=== PATIENT | female | born 1940 | race African-American/Black ===

== ENCOUNTER 2016-08-05 21:35 | Emergency (ER) | payer OTHER, MEDICAID ==
[2016-08-05 21:54] VITALS: BMI 29.9
--- NOTE | 2016-08-05 22:43 | DR.GENAD ---
HPI - PCP Primary Care Physician: LAUREN - Complaint/Symptoms Chief Complaint Doctors Comments: Patient with osteoarthritis on hydrocodone 10/ 325 qid but is not taking as instructed in fear of becoming hooked on the medication. Chief Complaint:: LEFT KNEE SWOLLEN FEELS LIKE IT HAS FLUID IN IT HAS PROBLEMS WITH ARTHRITIS. FEELS LIKE IT SLIPS WHEN WALKING Self Treatment fo Chief Complaint: HYDROCODONE FOR PAIN TOOK LAST ONE AROUND 8PM TONIGHT - Source History Provided: Patient - Mode of Arrival Mode of Arrival: Wheelchair - Timing Onset of Chief Complaint: 08/02/16 PMH - PMH Past Medical History: Yes Past Medical History: Arthritis, Dyslipidemia, GERD, Hypertension Past Surgical History: Yes Surgical History: Appendectomy, Hysterectomy Past Surgical History Comment: STENT PLACEMENT - Family History History of Family Medical Conditions: Yes Family Medical History: Cancer, Hypertension Family Medical History Comment: CVA - Social History Does patient currently use any type of tobacco product: No Have you used tobacco products in the last 12 months: No Type of Tobacco Use: None Does any household member use tobacco: No Alcohol Use: None Do you use any recreational Drugs:: No Lives With: Alone Lives Where: Home - infectious screening In the last 2 months have you had wt loss of >10#?: NO Have you had fever, night sweats or hemotysis?: No Have you traveled outside the country in the last 6 months?: No Isolation: Standard ROS - Review of Systems Constitutional: No Symptoms Reported Eyes: No Symptoms Reported ENTM: No Symptoms Reported Respiratoy: No Symptoms Reported Cardiovascular: No Symptoms Reported Gastrointestinal/Abdominal: No Symptoms Reported Genitourinary: No Symptoms Reported Neurological: No Symptoms Reported Musculoskeletal: No Symptoms Reported Integumentary: No Symptoms Reported Hematologic/Lymphatic: No Symptoms Reported Endocrine: No Symptoms Reported Psychiatric: No Symptoms Reported All Other Systems: Reviewed and Negative PE - Vital Signs Vitals: Temperature 98.4 F Pulse Rate 73 Respiratory Rate 16 Blood Pressure [Right Arm] 148/67 Blood Pressure [Left Arm] 162/68 Blood Pressure 113/67 O2 Sat by Pulse Oximetry 97 - General Limitations: No Limitations General Appearance: Alert, In No Apparent Distress - Head Head Exam: Normal Inspection, Atraumatic - Eyes Eye exam: Normal Appearance, PERRL, EOMI - ENT ENT Exam: Normal Exam External Ear Exam: Normal External Inspection TM/Canal Exam: Bilateral Normal Nose Exam: Normal Nose Exam Mouth Exam: Normal Inspection Throat Exam: Normal Inspection - Neck Neck Exam: Normal Inspection - Chest Chest Inspection: Normal Inspection - Respiratory Respiratory Exam: Normal Lung Sounds Bilat Respiratory Exam: Bilateral Clear to Auscultation - Cardiovascular Cardiovascular Exam: Regular Rate, Normal Rhythm - Abdominal Exam Abdominal Exam: Normal Inspection Abdominal Tenderness: negative: RUQ, RLQ, LUQ, LLQ, Epigastrium, Suprapubic, Diffuse, Mild, Moderate, Severe, Other - Extremities Extremities Exam: Tenderness (left knee w/o edema) - Neurologic Neurological Exam: Alert, Oriented X3, CN II-XII Intact - Skin Skin Exam: Warm, Dry, Intact - Diagnosis Discharge Problem: Osteoarthritis Qualifiers: Osteoarthritis location: knee Osteoarthritis type: unspecified Laterality: left Qualified Code(s): M17.12 - Unilateral primary osteoarthritis, left knee - Discharge Plan Condition: Stable - Follow ups/Referrals Follow ups/Referrals: Júnior Chanel [Primary Care Provider] - 3 days - Instructions
[2016-08-05 23:04] VITALS: BP 119/65
== END 2016-08-05 23:03 | disposition home or self-care (01) ==
LOC: ER 21:58
DX: M17.12 Unilateral primary osteoarthritis, left knee (principal)
CPT/HCPCS: 99281; 99282

== ENCOUNTER → 2017-03-03 | Outpatient (CLI) | payer OTHER, MEDICAID ==
[~2017-03-03] MED LIST: NS 100 ML IV 100 ML IV ONE
--- NOTE | 2017-03-03 21:05 | CT ---
HISTORY: Abdominal pain constipation Study: CT abdomen and pelvis with contrast Comparison: 11/23/2015 Technique: Multiple axial images of the abdomen and pelvis were obtained from the lung bases to the pubic symphy sis after/ without/ both prior to and after the administration of IV contrast. Findings: The visualized portions of the lung bases are unremarkable. The liver, spleen, pancreas, right kidne y, and adrenal glands are unremarkable in their CT appearance. A subcentimeter focus of decreased att enuation is again seen within the left kidney and is too small to accurately characterize. No CT evid ence of hydronephrosis is identified. The gallbladder is unremarkable in its CT appearance. Scattere d diverticula are seen throughout the majority of the colon. The urinary bladder is not well distende d but otherwise grossly unremarkable. Degenerative changes are seen within the visualized spine. Pos tsurgical changes of the right lower quadrant are noted. By history the appendix and uterus have been surgically removed. A small hiatal hernia is noted. IMPRESSION: Diverticulosis. Appendectomy. Hysterectomy. Reported By:
== END ==
LOC: RAD 08:13
PROVIDERS: ATTEND Internal Medicine
DX: K59.09 Other constipation (principal); R10.32 Left lower quadrant pain; R10.31 Right lower quadrant pain; K57.30 Diverticulosis of large intestine without perforation or abscess without bleeding
CPT/HCPCS: 74177; A4222

== ENCOUNTER 2017-03-14 13:48 | Observation (INO) | payer OTHER, MEDICAID ==
[2017-03-14 15:50] LABS: BASOPHILS % (AUTO) 0.3 % (0.2-1.0); HEMATOCRIT 33.3 % (36.0-47.0); HEMOGLOBIN 11.1 g/dL (12.0-16.0); LYMPHOCYTES # (AUTO) 0.6 X10^3/uL (1.3-2.9); LYMPHOCYTES % (AUTO) 6.1 % (21.0-51.0); MEAN CORPUSCULAR HEMOGLOBIN 27.2 pg (27.0-34.0); MEAN CORPUSCULAR HGB CONC 33.4 g/dL (33.0-35.0); MEAN CORPUSCULAR VOLUME 81.5 fL (80.0-100.0); MEAN PLATELET VOLUME 7.4 fL (7.4-11.0); MONOCYTES # (AUTO) 0.6 x10^3/uL (0.3-0.8); MONOCYTES % (AUTO) 6.1 % (0.0-13.0); NEUTROPHILS # (AUTO) 8.8 x10^3/uL (2.2-4.8); NEUTROPHILS % (AUTO) 87.5 % (42.0-75.0); PLATELET COUNT 275 X10^3/uL (150.0-450.0); RED BLOOD COUNT 4.08 X10^6/uL (3.5-5.4); RED CELL DISTRIBUTION WIDTH 14.6 % (11.6-16.5); WHITE BLOOD COUNT 10.1 X10^3/uL (3.6-10.0)
[2017-03-14 15:53] VITALS: BMI 35.3
[2017-03-14 15:58] LABS: BLOOD UREA NITROGEN 9 mg/dL (7-18); CALCIUM 9.3 mg/dL (8.5-10.1); CARBON DIOXIDE 27.6 mmol/L (21-32); CHLORIDE 93 mmol/L (98-107); COR NA(FOR HYPERGLY) 129 mmol/L (136-145); CREATININE 0.86 mg/dL (0.55-1.02); SODIUM 129 mmol/L (136-145); eGFR BLACK RACES > 60 (>60); eGFR NON BLACK RACES > 60 (>60)
[2017-03-14] MEDS: NS 1000 ML 1,000 ML IV SCH (16:15)
[2017-03-14] MEDS: ULTRAM PO SCH ×3 (16:15→22:11)
[2017-03-14] MEDS: TORADOL 15 MG VIAL IVP SCH ×2 (16:16→22:10)
[2017-03-14 18:00] LABS: ERYTHROCYTE SEDIMENTATION RATE 77 MM/HOUR (0-20)
[2017-03-14] MEDS ORDERED: NORCO 10/325 TAB PO PRN (19:16)
[2017-03-14] MEDS ORDERED: LEVSIN/MAALOX/LIDOC VISC PO PRN (19:16)
[2017-03-14] MEDS ORDERED: ONDANSETRON PO PRN (19:16)
[2017-03-14] MEDS ORDERED: NEURONTIN CAP 100 MG PO PRN (19:16)
--- NOTE | 2017-03-14 21:27 | RAD ---
Lumbar spine two views Indication: Lower back pain with knee pain. No trauma. Findings: There is multilevel disc degenerative change and facet arthropathy, worse caudally. No conv incing cortical lucency or malalignment seen. Bowel gas and body habitus limits sensitivity significa ntly. Impression: Spine degenerative change without destructive osseous lesion or acute fracture. Study is limited due to technical factors as above. Follow-up with cross-sectional imaging as needed. Reported By:
--- NOTE | 2017-03-14 21:28 | RAD ---
Right knee two views Indication: Bilateral knee pain. No trauma. Findings: There is joint effusion with multi compartment degenerative change. Degenerative joint spac e narrowing is seen diffusely, probably worse in lateral femorotibial joint. Impression: Moderate to advanced degenerative change with joint effusion as above. No displaced fract ure seen. Reported By:
--- NOTE | 2017-03-14 21:29 | RAD ---
Left knee 2 views Indication: Chronic left knee pain. No trauma. Findings: There is multi compartment degenerative change, moderate to advanced with joint effusion. J oint space narrowing is worse medially with marginal osteophytes. Impression: No acute displaced fracture seen. Moderate to advanced degenerative change worse in the m edial femorotibial joint. Reported By:
[2017-03-14 22:06] LABS: ALANINE AMINOTRANSFERASE 16 Units/L (12-78); ALBUMIN 2.8 g/dL (3.4-5.0); ALKALINE PHOSPHATASE 95 Units/L (46-116); ASPARTATE AMINO TRANSFERASE 21 Units/L (15-37); COR CA(FOR HYPOALB) 10.3 mg/dL (8.5-10.1); TOTAL PROTEIN 7.7 g/dL (6.4-8.2)
[2017-03-14] MEDS: NEURONTIN CAP 300 MG PO SCH (22:10)
[2017-03-14] MEDS: NORVASC TAB 10 MG PO SCH (22:11)
[2017-03-14] MEDS: LIPITOR TAB 40 MG PO SCH (22:11)
[2017-03-14] MEDS: TOPROL XL PO SCH (22:12)
[2017-03-14] MEDS: PEPCID TAB 20 MG PO SCH (22:12)
[2017-03-14] MEDS: VASOTEC TAB 20 MG PO SCH (22:12)
[2017-03-14 22:32] LABS: BILIRUBIN,URINE NEGATIVE (NEGATIVE); BLOOD/HEMOGLOBIN,URINE 2+ (NEGATIVE); GLUCOSE, URINE 3+ (NEGATIVE); KETONES,URINE NEGATIVE (NEGATIVE); LEUKOCYTE ESTERASE ,URINE 1+ (NEGATIVE); NITRITES,URINE NEGATIVE (NEGATIVE); PROTEIN,URINE 1+ (NEGATIVE); UROBILINOGEN,URINE 1+ (NORMAL)
[2017-03-14 22:41] LABS: APPEARANCE,URINE SLIGHTLY HAZY (CLEAR); COLOR,URINE YELLOW (YELLOW)
[2017-03-14 22:42] LABS: BACTERIA,URINE 1+ /HPF (NEGATIVE); HYALINE CASTS, URINE FEW /LPF (NEGATIVE); SQUAMOUS EPITHELIAL CELL,UR RARE /HPF (NEGATIVE)
[2017-03-15] MEDS: TORADOL 15 MG VIAL IVP SCH ×4 (03:16→22:08)
[2017-03-15] MEDS: NS 1000 ML 1,000 ML IV SCH ×2 (04:30→18:19)
[2017-03-15 05:29] LABS: BASOPHILS % (AUTO) 0.1 % (0.2-1.0); HEMATOCRIT 31.8 % (36.0-47.0); HEMOGLOBIN 10.6 g/dL (12.0-16.0); LYMPHOCYTES # (AUTO) 0.8 X10^3/uL (1.3-2.9); LYMPHOCYTES % (AUTO) 8.7 % (21.0-51.0); MEAN CORPUSCULAR HEMOGLOBIN 27.4 pg (27.0-34.0); MEAN CORPUSCULAR HGB CONC 33.4 g/dL (33.0-35.0); MEAN PLATELET VOLUME 7.3 fL (7.4-11.0); MONOCYTES # (AUTO) 0.6 x10^3/uL (0.3-0.8); MONOCYTES % (AUTO) 5.7 % (0.0-13.0); NEUTROPHILS # (AUTO) 8.3 x10^3/uL (2.2-4.8); NEUTROPHILS % (AUTO) 85.5 % (42.0-75.0); PLATELET COUNT 263 X10^3/uL (150.0-450.0); RED BLOOD COUNT 3.88 X10^6/uL (3.5-5.4); RED CELL DISTRIBUTION WIDTH 14.7 % (11.6-16.5); WHITE BLOOD COUNT 9.7 X10^3/uL (3.6-10.0)
[2017-03-15 05:49] LABS: ALANINE AMINOTRANSFERASE 15 Units/L (12-78); ALBUMIN 2.4 g/dL (3.4-5.0); ALKALINE PHOSPHATASE 85 Units/L (46-116); ASPARTATE AMINO TRANSFERASE 15 Units/L (15-37); BLOOD UREA NITROGEN 15 mg/dL (7-18); CALCIUM 9.2 mg/dL (8.5-10.1); CARBON DIOXIDE 26.7 mmol/L (21-32); COR CA(FOR HYPOALB) 10.5 mg/dL (8.5-10.1); CREATININE 0.89 mg/dL (0.55-1.02); TOTAL PROTEIN 7.1 g/dL (6.4-8.2); eGFR BLACK RACES > 60 (>60); eGFR NON BLACK RACES > 60 (>60)
[2017-03-15 05:53] LABS: CHLORIDE 97 mmol/L (98-107); COR NA(FOR HYPERGLY) 134 mmol/L (136-145); SODIUM 132 mmol/L (136-145)
[2017-03-15] MEDS ORDERED: ZOFRAN TAB 4 MG PO SCH (06:00)
[2017-03-15] MEDS ORDERED: ZOFRAN TAB 4 MG PO PRN (07:00)
[2017-03-15] MEDS ORDERED: LASIX PO SCH (09:00)
[2017-03-15] MEDS: MICRO K EXTEN CAP 10 MEQ PO SCH (09:00)
[2017-03-15] MEDS: NexIUM PO SCH (09:01)
[2017-03-15] MEDS: VASOTEC TAB 20 MG PO SCH ×2 (09:01→22:09)
[2017-03-15] MEDS: ZOFRAN INJ 4 MG VIAL IVP PRN ×2 (09:01→13:15)
[2017-03-15] MEDS: ASPIRIN EC 81 MG PO SCH (09:01)
[2017-03-15] MEDS: ZyrTEC TAB 10 MG PO SCH (09:01)
[2017-03-15] MEDS: TOPROL XL PO SCH ×2 (09:01→22:10)
[2017-03-15] MEDS: SINGULAIR TAB 10 MG PO SCH (09:03)
[2017-03-15] MEDS: PLAVIX PO SCH (09:17)
[2017-03-15] MEDS: ULTRAM PO SCH ×4 (09:17→22:10)
[2017-03-15] MEDS: FLONASE NASAL SPRAY ENOSTRIL SCH (09:18)
--- NOTE | 2017-03-15 12:43 | DR.UPDATE ---
H&P Update History and Physical Update: WAS SEEN IN THE OFFICE ON 03/14/17. A H&P WAS COMPLETED PRIOR TO ADMISSION. PATIENT HAS BEEN SEEN AND EXAMINED WITH NO CHANGES NOTED TO H&P. Changes noted: NO Yes with the following:
[2017-03-15] MEDS: LEVSIN/MAALOX/LIDOC VISC PO SCH ×3 (13:20→22:11)
--- NOTE | 2017-03-15 14:47 | MRI ---
MRI OF THE LUMBAR SPINE WITHOUT IV CONTRAST CLINICAL INDICATION: Severe low back pain TECHNIQUE: Pre-contrast sagittal T1-, T2-, and T2-w fat-saturated images, and axial T1- and T2-w imag es of the lumbar spine. COMPARISON: CT abdomen pelvis 03/03/2017 which covers the lumbar spine FINDINGS: For purposes of this dictation, it is assumed that there are 5 [id number], lumbar-type vertebrae , and the most caudal fully segmented lumbar vertebra is labeled L5. The lumbar spine demonstrates normal alignment. Vertebral bodies are normal in height. There is a nor mal marrow signal pattern. Multilevel degenerative disc disease worst at. L1-L2, L4-5, L5-L6. The inc luded paraspinal soft tissues and retroperitoneal structures are grossly normal. Evaluation of the individual levels demonstrates: L1-2: Normal L2-3: Circumferential disc bulge with mild central stenosis and mild bilateral neural foraminal steno sis. L3-4: Circumferential disc bulge and mild ligamentum flavum hypertrophy with mild bilateral neural fo raminal stenosis. L4-5: Circumferential disc bulge, ligamentum flavum hypertrophy and facet arthropathy resulting in mo derate to severe central stenosis and moderate to severe bilateral neural foraminal stenosis. L5-S1: Circumferential disc bulge with moderate central stenosis and severe bilateral neural foramina l stenosis. IMPRESSION: 1. Multilevel degenerative disc disease worst at L4-5 and L5-S1 as above. Reported By:
[2017-03-15] MEDS: PATIENT'S HOME MEDICATION (Linaclotide [Linzess] 72 MCG) PO SCH (18:10)
[2017-03-15] MEDS: PEPCID TAB 20 MG PO SCH (22:09)
[2017-03-15] MEDS: LIPITOR TAB 40 MG PO SCH (22:10)
[2017-03-15] MEDS: NORVASC TAB 10 MG PO SCH (22:10)
[2017-03-15] MEDS: NEURONTIN CAP 300 MG PO SCH (22:10)
[2017-03-16 05:28] LABS: ALANINE AMINOTRANSFERASE 15 Units/L (12-78); ALBUMIN 2.1 g/dL (3.4-5.0); ALKALINE PHOSPHATASE 78 Units/L (46-116); ASPARTATE AMINO TRANSFERASE 13 Units/L (15-37); BASOPHILS % (AUTO) 0.1 % (0.2-1.0); BLOOD UREA NITROGEN 22 mg/dL (7-18); CALCIUM 9.2 mg/dL (8.5-10.1); CARBON DIOXIDE 26.1 mmol/L (21-32); CHLORIDE 97 mmol/L (98-107); COR CA(FOR HYPOALB) 10.7 mg/dL (8.5-10.1); COR NA(FOR HYPERGLY) 131 mmol/L (136-145); CREATININE 1.02 mg/dL (0.55-1.02); HEMATOCRIT 31.4 % (36.0-47.0); HEMOGLOBIN 10.2 g/dL (12.0-16.0); LYMPHOCYTES # (AUTO) 0.4 X10^3/uL (1.3-2.9); LYMPHOCYTES % (AUTO) 2.2 % (21.0-51.0); MEAN CORPUSCULAR HEMOGLOBIN 27.1 pg (27.0-34.0); MEAN CORPUSCULAR HGB CONC 32.6 g/dL (33.0-35.0); MEAN CORPUSCULAR VOLUME 83.1 fL (80.0-100.0); MONOCYTES # (AUTO) 1.2 x10^3/uL (0.3-0.8); MONOCYTES % (AUTO) 7.2 % (0.0-13.0); NEUTROPHILS # (AUTO) 15.5 x10^3/uL (2.2-4.8); NEUTROPHILS % (AUTO) 90.5 % (42.0-75.0); PLATELET COUNT 278 X10^3/uL (150.0-450.0); RED BLOOD COUNT 3.78 X10^6/uL (3.5-5.4); RED CELL DISTRIBUTION WIDTH 15.1 % (11.6-16.5); SODIUM 130 mmol/L (136-145); TOTAL PROTEIN 6.6 g/dL (6.4-8.2); WHITE BLOOD COUNT 17.2 X10^3/uL (3.6-10.0); eGFR BLACK RACES > 60 (>60); eGFR NON BLACK RACES 56 (>60)
[2017-03-16 05:43] LABS: BAND NEUTROPHILS % 9 % (0-10); PLATELET MORPHOLOGY COMMENT NORMAL (NORMAL)
[2017-03-16] MEDS: NS 1000 ML 1,000 ML IV SCH ×2 (07:13→21:23)
[2017-03-16] MEDS: TORADOL 15 MG VIAL IVP SCH ×4 (09:30→21:21)
[2017-03-16] MEDS: ZyrTEC TAB 10 MG PO SCH (10:01)
[2017-03-16] MEDS: ULTRAM PO SCH ×4 (10:01→21:22)
[2017-03-16] MEDS: VASOTEC TAB 20 MG PO SCH ×2 (10:01→21:22)
[2017-03-16] MEDS: PLAVIX PO SCH (10:01)
[2017-03-16] MEDS: NexIUM PO SCH (10:03)
[2017-03-16] MEDS: MICRO K EXTEN CAP 10 MEQ PO SCH (10:03)
[2017-03-16] MEDS: LEVSIN/MAALOX/LIDOC VISC PO SCH ×4 (10:03→20:37)
[2017-03-16] MEDS: ASPIRIN EC 81 MG PO SCH (10:03)
[2017-03-16] MEDS: TOPROL XL PO SCH ×2 (10:03→21:23)
[2017-03-16] MEDS: SINGULAIR TAB 10 MG PO SCH (10:03)
[2017-03-16] MEDS: FLONASE NASAL SPRAY ENOSTRIL SCH (10:04)
[2017-03-16] MEDS: PATIENT'S HOME MEDICATION (Linaclotide [Linzess] 72 MCG) PO SCH (11:57)
[2017-03-16] MEDS: COLACE CAP 100 MG PO SCH ×2 (12:25→20:36)
[2017-03-16] MEDS: MILK OF MAGNESIA PO SCH ×2 (12:25→20:36)
[2017-03-16] MEDS: ROCEPHIN VIAL 1 GM 1 GM in NS 100 ML IV 100 ML IV SCH (12:26)
--- NOTE | 2017-03-16 16:11 | RAD ---
History: Shortness of breath Study: Portable AP chest Comparison: None Findings: The heart is mildly enlarged with a tortuous aorta. The lungs are clear and there is no ple ural effusion. Impression: Mild cardiomegaly, no acute disease demonstrated. Reported By:
[2017-03-16] MEDS: PEPCID TAB 20 MG PO SCH (20:36)
[2017-03-16] MEDS: NEURONTIN CAP 300 MG PO SCH (20:36)
[2017-03-16] MEDS: LIPITOR TAB 40 MG PO SCH (20:37)
[2017-03-16] MEDS: NORVASC TAB 10 MG PO SCH (21:21)
[2017-03-17 04:50] LABS: ALANINE AMINOTRANSFERASE 23 Units/L (12-78); ALKALINE PHOSPHATASE 84 Units/L (46-116); ASPARTATE AMINO TRANSFERASE 27 Units/L (15-37); BLOOD UREA NITROGEN 37 mg/dL (7-18); CALCIUM 8.9 mg/dL (8.5-10.1); CARBON DIOXIDE 25.7 mmol/L (21-32); CHLORIDE 96 mmol/L (98-107); COR CA(FOR HYPOALB) 10.5 mg/dL (8.5-10.1); CREATININE 1.84 mg/dL (0.55-1.02); SODIUM 128 mmol/L (136-145); TOTAL PROTEIN 6.3 g/dL (6.4-8.2); eGFR BLACK RACES 34 (>60); eGFR NON BLACK RACES 28 (>60)
[2017-03-17 05:01] LABS: BASOPHILS % (AUTO) 0.1 % (0.2-1.0); EOSINOPHILS # (AUTO) 0.1 x10^3/uL (0.0-0.2); EOSINOPHILS % (AUTO) 1.1 % (0.9-2.9); HEMATOCRIT 31.6 % (36.0-47.0); HEMOGLOBIN 10.4 g/dL (12.0-16.0); LYMPHOCYTES # (AUTO) 1.1 X10^3/uL (1.3-2.9); LYMPHOCYTES % (AUTO) 8.9 % (21.0-51.0); MEAN CORPUSCULAR HEMOGLOBIN 26.9 pg (27.0-34.0); MEAN CORPUSCULAR HGB CONC 32.8 g/dL (33.0-35.0); MEAN CORPUSCULAR VOLUME 82.1 fL (80.0-100.0); MEAN PLATELET VOLUME 7.9 fL (7.4-11.0); MONOCYTES # (AUTO) 1.4 x10^3/uL (0.3-0.8); MONOCYTES % (AUTO) 11.4 % (0.0-13.0); NEUTROPHILS # (AUTO) 9.2 x10^3/uL (2.2-4.8); NEUTROPHILS % (AUTO) 78.5 % (42.0-75.0); PLATELET COUNT 312 X10^3/uL (150.0-450.0); RED BLOOD COUNT 3.84 X10^6/uL (3.5-5.4); WHITE BLOOD COUNT 11.8 X10^3/uL (3.6-10.0)
[2017-03-17] MEDS: TORADOL 15 MG VIAL IVP SCH ×2 (05:50→09:17)
[2017-03-17] MEDS: NS 1000 ML 1,000 ML IV SCH (07:30)
[2017-03-17] MEDS ORDERED: ALBUMIN HUMAN 25%- 100ML 100 ML IV SCH (09:00)
[2017-03-17] MEDS: ASPIRIN EC 81 MG PO SCH (09:03)
[2017-03-17] MEDS: NexIUM PO SCH (09:04)
[2017-03-17] MEDS: COLACE CAP 100 MG PO SCH (09:04)
[2017-03-17] MEDS: TOPROL XL PO SCH (09:07)
[2017-03-17] MEDS: LEVSIN/MAALOX/LIDOC VISC PO SCH ×2 (09:08→13:29)
[2017-03-17] MEDS: ULTRAM PO SCH ×2 (09:11→13:29)
[2017-03-17] MEDS: SINGULAIR TAB 10 MG PO SCH (09:11)
[2017-03-17] MEDS: ZyrTEC TAB 10 MG PO SCH (09:11)
[2017-03-17] MEDS: MILK OF MAGNESIA PO SCH (09:12)
[2017-03-17] MEDS: PLAVIX PO SCH (09:14)
[2017-03-17] MEDS: PATIENT'S HOME MEDICATION (Linaclotide [Linzess] 72 MCG) PO SCH (09:15)
[2017-03-17] MEDS: MICRO K EXTEN CAP 10 MEQ PO SCH (09:15)
[2017-03-17] MEDS: VASOTEC TAB 20 MG PO SCH (09:21)
[2017-03-17] MEDS: FLONASE NASAL SPRAY ENOSTRIL SCH (09:35)
[2017-03-17] MEDS: ROCEPHIN VIAL 1 GM 1 GM in NS 100 ML IV 100 ML IV SCH (10:00)
[2017-03-17] MEDS ORDERED: NS 100 ML IV 100 ML IV ONE (10:44)
--- NOTE | 2017-03-17 12:16 | PCM.PROG ---
Progress Note - Progress Note for Day of Date: 03/15/17 - Subjective Subjective: WAS ADMITTED FOR SEVERE LOWER BACK PAIN AND BILATERAL KNEE PAIN. TODAY, SHE IS ALERT AND ORIENTED, LYING IN BED ON MORNING ROUNDS. PATIENTS GRANDSON IS AT BEDSIDE. SHE CONTINUES WITH COMPLAINTS OF LOWER BACK PAIN. SHE IS ALSO NOTED WITH COMPLAINTS OF DIFFUSE EPIGASTRIC PAIN. ON EXAMINATION, LUNGS ARE CLEAR TO AUSCULTATION. ABDOMEN IS ROUND, SOFT, AND NOTED WITH EPIGASTRIC AND SUPRAPUBIC TENDERNESS. NORMAL BOWEL SOUNDS ARE NOTED IN ALL QUADRANTS. LUMBAR REGION OF BACK IS NOTED WITH MODERATE TENDERNESS ON EXAM. STAFF REPORTS THAT PATIENT IS AMBULATING WELL AND WITHOUT DIFFICULTY IN ROOM. HER VITAL SIGNS THIS MORNING ARE 97.3-53-18-97%-108/55. ABNORMAL LAB VALUES INCLUDE THE FOLLOWING: HGB 10.6, HCT 31.8, SODIUM 132, CHLORIDE 97, GLUCOSE 170 , ALBUMIN 2.4, GLOBULIN 4.7, A/G RATIO 0.5. URINALYSIS REPORTED WBC 6-8, RBC 8- 10, BACTERIA 1+, LEUKOCYTES 1+, NITRITES NEGATIVE, PROTEIN 1+. BILATERAL KNEE XRAYS WERE OBTAINED ON ADMISSION. RIGHT KNEE REPORTED MODERATE TO ADVANCED DEGENERATIVE CHANGE WITH JOINT EFFUSION ABOVE. NO DISPLACED FRACTURE SEEN. LEFT KNEE REPORTED NO ACUTE DISPLACED FRACTURE SEEN. MODERATE TO ADVANCED DEGENERATIVE CHANGE WORSE IN THE MEDIAL FEMOROTIBIAL JOINT. A LUMBAR SPINE XRAY WAS OBTAINED AND REPORTED SPINE DEGENERATIVE CHANGE WITHOUT DESTRUCTIVE OSSEOUS LESION OR ACUTE FRACTURE. WE DISCUSSED FINDINGS WITH FAMILY. TODAY, WE WILL START GI COCKTAIL 10ML PO QID. WE PLAN TO OBTAIN A LUMBAR SPINE MRI TODAY. OTHERWISE, WE WILL CONTINUE WITH CURRENT PLAN OF CARE AND CONTINUE TO MONITOR PATIENT. WE WILL FOLLOW UP WITH AM LABS IN THE MORNING. - Past Medical Family Social History Past Med/Fam/Surg Hx: No changes since H&P Allergies: Allergies codeine Adverse Reaction (Verified 03/14/17 14:54) - Review of Systems ROS: No change since H&P - Vital Signs and I&O's Vital Signs: Temperature 97.7 F Pulse Rate [Left Brachial] 60 Pulse Rate [Right Brachial] 55 Respiratory Rate 18 Blood Pressure [Right Arm] 138/75 Blood Pressure [Left Arm] 103/54 Blood Pressure 119/65 O2 Sat by Pulse Oximetry 97 Intake and Output: Intake & Output 03/15/17 03/16/17 03/17/17 03/18/17 11:59 11:59 11:59 11:59 Intake Total 1200 2982 1800 Output Total 300 650 200 Balance 900 2332 1600 - Physical Exam Oriented: Normal Eyes: Normal. negative: Blurred Vision, Diplopia, Discharge, Pain, Redness, Photophobia, Other Ear: Normal. negative: Right, Left, Swelling, Ecchymosis, Hemotypanum, Abrasion , Laceration Nose: Normal. negative: Injected, Discharge, Blood, Other Throat: Normal. negative: Tonsillar Hypertrophy, Red, Exudate, Dry, Other Respiratory: Normal. negative: Right, Left, Generalized, Superior, Inferior, Diminished, Wheezes, Rales, Rhonchi, OTHER Cardiovascular: Normal. negative: Tachycardia, Bradycardia, Irregular, S3, S4, Systolic, Diastolic, Murmur, Edema, Other : Normal Auscultation: Bowel Sounds: Normal Palpation: Normal Tenderness: Epigastric, Suprapubic, Mild. negative: Rebound, Guarding, Rigidity Skin: Normal Musculoskeletal: Right, Left, Knee, Back:Lumbar, Tender, Instability Psychiatric: Normal Mood Description: Calm Affect: Normal Speech Pattern: Clear - Laboratory and Diagnostics Result Diagrams: 03/17/17 03:50 03/17/17 03:50 Labs: 03/14/17 22:24 Urine,Clean Catch Urine Culture - Final Laboratory WBC 11.8 X10^3/uL (3.6-10.0) H 03/17/17 03:50 RBC 3.84 X10^6/uL (3.5-5.4) 03/17/17 03:50 Hgb 10.4 g/dL (12.0-16.0) L 03/17/17 03:50 Hct 31.6 % (36.0-47.0) L 03/17/17 03:50 MCV 82.1 fL (80.0-100.0) 03/17/17 03:50 MCH 26.9 pg (27.0-34.0) L 03/17/17 03:50 MCHC 32.8 g/dL (33.0-35.0) L 03/17/17 03:50 RDW 15.0 % (11.6-16.5) 03/17/17 03:50 Plt Count 312 X10^3/uL (150.0-450.0) 03/17/17 03:50 Plt Count Comment Adequate (ADEQUATE) 03/16/17 04:20 MPV 7.9 fL (7.4-11.0) 03/17/17 03:50 Neut % 78.5 % (42.0-75.0) H 03/17/17 03:50 Lymph % 8.9 % (21.0-51.0) L 03/17/17 03:50 Posey % 11.4 % (0.0-13.0) 03/17/17 03:50 Eos % 1.1 % (0.9-2.9) 03/17/17 03:50 Baso % 0.1 % (0.2-1.0) L 03/17/17 03:50 Neut # 9.2 x10^3/uL (2.2-4.8) H 03/17/17 03:50 Lymph # 1.1 X10^3/uL (1.3-2.9) L 03/17/17 03:50 Posey # 1.4 x10^3/uL (0.3-0.8) H 03/17/17 03:50 Eos # 0.1 x10^3/uL (0.0-0.2) 03/17/17 03:50 Baso # 0.0 X10^3/uL (0.0-0.1) 03/17/17 03:50 Absolute Nucleated RBC 0.2 /100WBC 03/17/17 03:50 Total Counted 100 03/16/17 04:20 Neutrophils % (Manual) 84 % (39-76) H 03/16/17 04:20 Band Neutrophils % 9 % (0-10) 03/16/17 04:20 Lymphocytes % (Manual) 2 % (13-43) L 03/16/17 04:20 Monocytes % (Manual) 5 % (4-9) 03/16/17 04:20 Plt Morphology Comment Normal (NORMAL) 03/16/17 04:20 RBC Morphology Normal (NORMAL) 03/16/17 04:20 ESR 58 MM/HOUR (0-20) H 03/16/17 04:20 Sodium 128 mmol/L (136-145) L 03/17/17 03:50 Corrected Sodium TNP 03/17/17 03:50 Potassium 5.0 mmol/L (3.5-5.1) 03/17/17 03:50 Chloride 96 mmol/L (98-107) L 03/17/17 03:50 Carbon Dioxide 25.7 mmol/L (21-32) 03/17/17 03:50 BUN 37 mg/dL (7-18) H 03/17/17 03:50 Creatinine 1.84 mg/dL (0.55-1.02) H 03/17/17 03:50 Est GFR (MDRD) Af Amer 34 (>60) L 03/17/17 03:50 Est GFR (MDRD) Non-Af 28 (>60) L 03/17/17 03:50 Glucose 102 mg/dL (65-99) H 03/17/17 03:50 Calcium 8.9 mg/dL (8.5-10.1) 03/17/17 03:50 Corrected Calcium 10.5 mg/dL (8.5-10.1) H 03/17/17 03:50 Total Bilirubin 0.10 mg/dL (0.2-1.0) L 03/17/17 03:50 AST 27 Units/L (15-37) 03/17/17 03:50 ALT 23 Units/L (12-78) 03/17/17 03:50 Alkaline Phosphatase 84 Units/L (46-116) 03/17/17 03:50 C-Reactive Protein 106.70 mg/L (0-3.0) H 03/16/17 04:20 Total Protein 6.3 g/dL (6.4-8.2) L 03/17/17 03:50 Albumin 2.0 g/dL (3.4-5.0) L 03/17/17 03:50 Globulin 4.3 g/dL (2.5-4.5) 03/17/17 03:50 Albumin/Globulin Ratio 0.5 Ratio (1.1-2.1) L 03/17/17 03:50 Specimen Type Clean catch urine 03/14/17 22:24 Urine Color Yellow (YELLOW) 03/14/17 22:24 Urine Appearance Slightly hazy (CLEAR) 03/14/17 22:24 Urine pH 6.0 (5.0 - 8.0) 03/14/17 22:24 Ur Specific Bruner 1.020 (1.000-1.030) 03/14/17 22:24 Urine Protein 1+ (NEGATIVE) 03/14/17 22:24 Urine Glucose (UA) 3+ (NEGATIVE) 03/14/17 22:24 Urine Ketones Negative (NEGATIVE) 03/14/17 22:24 Urine Occult Blood 2+ (NEGATIVE) 03/14/17 22:24 Urine Nitrite Negative (NEGATIVE) 03/14/17 22:24 Urine Bilirubin Negative (NEGATIVE) 03/14/17 22:24 Urine Urobilinogen 1+ (NORMAL) 03/14/17 22:24 Ur Leukocyte Esterase 1+ (NEGATIVE) 03/14/17 22:24 Urine RBC 8-10 /HPF (NEGATIVE) 03/14/17 22:24 Urine WBC 6-8 /HPF (NEGATIVE) 03/14/17 22:24 Ur Squamous Epith Cells Rare /HPF (NEGATIVE) 03/14/17 22:24 Urine Bacteria 1+ /HPF (NEGATIVE) 03/14/17 22:24 Hyaline Casts Few /LPF (NEGATIVE) 03/14/17 22:24 Ur Culture Indicated? Yes/culture set up 03/14/17 22:24 - Plan (1) Intractable low back pain Status: Acute Plan: OBTAIN LUMBAR SPINE MRI, TORADOL 15MG IV Q6H, TRAMADOL 50MG PO QID, NORCO 10/325 PO Q6H PRN, CONTINUE TO MONITOR (2) Abdominal pain Status: Acute Qualifiers: Abdominal location: generalized Qualified Code(s): R10.84 - Generalized abdominal pain Plan: GI COCKTAIL 10ML PO QID, TORADOL 15MG IV Q6H, TRAMADOL 50MG PO QID, NORCO 10/325 PO Q6H PRN, CONTINUE TO MONITOR (3) Knee pain, bilateral Status: Chronic Qualifiers: Chronicity: chronic Qualified Code(s): M25.561 - Pain in right knee; M25.562 - Pain in left knee; M25.562 - Pain in left knee; G89.29 - Other chronic pain; G89.29 - Other chronic pain Plan: TORADOL 15MG IV Q6H, TRAMADOL 50MG PO QID, NORCO 10/325 PO Q6H PRN, CONTINUE TO MONITOR
[2017-03-17 13:03] VITALS: BP 133/59
== END 2017-03-17 13:55 | disposition home or self-care (01) ==
LOC: MED/SURG 13:48
PROVIDERS: ADMIT Internal Medicine; ATTEND Internal Medicine
DX: M54.5 Low back pain (principal); M25.561 Pain in right knee; M25.562 Pain in left knee; M25.512 Pain in left shoulder; G47.09 Other insomnia; M51.36 Other intervertebral disc degeneration, lumbar region; I51.7 Cardiomegaly; R10.84 Generalized abdominal pain; I10 Essential (primary) hypertension; E78.2 Mixed hyperlipidemia; R06.02 Shortness of breath; D64.89 Other specified anemias; E87.1 Hypo-osmolality and hyponatremia; R79.82 Elevated C-reactive protein (CRP); Z79.01 Long term (current) use of anticoagulants; R70.0 Elevated erythrocyte sedimentation rate; Z79.899 Other long term (current) drug therapy
CPT/HCPCS: 36415; 71010; 72100; 72148; 73560; 80053; 81001; 85025; 85652; 86140; 87086; A4216; A4222; P9047; G0378; J0696; J2405

== ENCOUNTER 2017-03-21 09:56 | Inpatient (IN) | payer OTHER, MEDICAID ==
--- NOTE | 2017-03-21 10:17 | DR.GENAD ---
HPI - PCP Primary Care Physician: Darío - HPI Comment HPI Comment: HISTORY BELOW. - Complaint/Symptoms Chief Complaint Doctors Comments: BLOOD IN STOOL GOR 2 DAYS. LARGE AMOUNT OF BLOOD IN TOILET WHEN PATIENT GO TO THE BATHROOM. SOME ABDOMINAL PAIN PRESENT. Chief Complaint:: "I just got out of the hospital here Tuesday. I was in because I was having knee problems and my blood pressure was dropping. Tuesday I started seeing a little bit of blood when I wipped. Today I started seeing blood in my stool. It looks like a really bright red type blood." - Nurses notes reviewed Nurses Notes Review: Yes - Source History Provided: Patient, Family Member - Mode of Arrival Mode of Arrival: Ambulatory - Timing Onset of Chief Complaint: 03/19/17 Came on: Suddenly - Duration Duration: Constant Duration: Days - Severity Severity: Moderate PMH - PMH Past Medical History: Yes Past Medical History: Arthritis, Dyslipidemia, GERD, Hypertension Past Surgical History: Yes Surgical History: Appendectomy, Hysterectomy - Family History History of Family Medical Conditions: Yes Family Medical History: Cancer, Hypertension - Social History Does patient currently use any type of tobacco product: No Have you used tobacco products in the last 12 months: No Type of Tobacco Use: None Does any household member use tobacco: No Alcohol Use: None Do you use any recreational Drugs:: No Lives With: Family Lives Where: Home - infectious screening In the last 2 months have you had wt loss of >10#?: NO Have you had fever, night sweats or hemotysis?: No Have you traveled outside the country in the last 6 months?: No Isolation: Standard ROS - Review of Systems Constitutional: No Symptoms Reported Eyes: No Symptoms Reported ENTM: No Symptoms Reported Respiratoy: No Symptoms Reported Cardiovascular: No Symptoms Reported Gastrointestinal/Abdominal: No Symptoms Reported Genitourinary: No Symptoms Reported Neurological: No Symptoms Reported Musculoskeletal: No Symptoms Reported Integumentary: No Symptoms Reported Hematologic/Lymphatic: No Symptoms Reported Endocrine: No Symptoms Reported All Other Systems: Reviewed and Negative PE - Vital Signs Vitals: Temperature 99.5 F Pulse Rate 96 Respiratory Rate 18 Blood Pressure [Right Arm] 138/75 Blood Pressure [Left Arm] 133/59 Blood Pressure 136/80 O2 Sat by Pulse Oximetry 100 - General Limitations: No Limitations General Appearance: Alert - Head Head Exam: Normal Inspection - Eyes Eye exam: Normal Appearance - ENT ENT Exam: Normal External Ear Exam External Ear Exam: Normal External Inspection TM/Canal Exam: Bilateral Normal Nose Exam: Normal Nose Exam Mouth Exam: Normal Inspection Throat Exam: Normal Inspection - Neck Neck Exam: Normal Inspection - Chest Chest Inspection: Symmetric Chest Wall Rise - Respiratory Respiratory Exam: Normal Lung Sounds Bilat Respiratory Exam: Bilateral Clear to Auscultation - Cardiovascular Cardiovascular Exam: Regular Rate, Normal Rhythm, Normal Heart Sounds - Abdominal Exam Abdominal Exam: Normal Bowel Sounds, Soft, Tenderness - Extremities Extremities Exam: Normal Inspection - Back Back Exam: Normal Inspection - Neurologic Neurological Exam: Alert, Oriented X3 - Psychiatric Psychiatric Exam: Normal Affect, Normal Mood - Skin Skin Exam: Normal Color MDM - Additional Information Additional Information Obtained From: Family - Differential Diagnosis Differential Diagnosis: GI BLEEDING. Course - Treatment Treatment: SEE REPORT. - Education/Counseling Education/Counseling: Patient, Education Educated On: Treatment, Diagnosis, Needs for Follow Up ROR - Labs Reviewed Laboratory Results Reviewed?: Yes Result Diagrams: 03/22/17 04:23 03/22/17 04:23 - XRAY XRAY Interpreted by: Radiologist XRAY Findings: REPORT DISCUSS WITH PATIENT. - Diagnosis Discharge Problem: GI bleeding Qualifiers: GI bleed type/associated pathology: unspecified gastrointestinal hemorrhage type Qualified Code(s): K92.2 - Gastrointestinal hemorrhage, unspecified - Discharge Plan Disposition: ADMITTED INPATIENT Condition: Stable - Follow ups/Referrals - Instructions
[2017-03-21] MEDS ORDERED: PROTONIX INJ 40 MG VIAL ONE (10:58)
[2017-03-21] MEDS ORDERED: NS 100 ML IV 100 ML IV ONE (10:59)
[2017-03-21] MEDS: PROTONIX INJ 40 MG VIAL 80 MG in NS 100 ML IV 80 ML IV SCH ×2 (11:13→20:53)
[2017-03-21] MEDS: NS 1000 ML 1,000 ML IV SCH ×2 (11:13→20:57)
[2017-03-21 11:18] LABS: ALANINE AMINOTRANSFERASE 30 Units/L (12-78); ALBUMIN 2.8 g/dL (3.4-5.0); ALKALINE PHOSPHATASE 82 Units/L (46-116); ASPARTATE AMINO TRANSFERASE 13 Units/L (15-37); BLOOD UREA NITROGEN 6 mg/dL (7-18); CALCIUM 9.3 mg/dL (8.5-10.1); CARBON DIOXIDE 28.6 mmol/L (21-32); CHLORIDE 100 mmol/L (98-107); COR CA(FOR HYPOALB) 10.3 mg/dL (8.5-10.1); COR NA(FOR HYPERGLY) 137 mmol/L (136-145); CREATININE 0.83 mg/dL (0.55-1.02); SODIUM 136 mmol/L (136-145); TOTAL PROTEIN 6.8 g/dL (6.4-8.2); eGFR BLACK RACES > 60 (>60); eGFR NON BLACK RACES > 60 (>60)
[2017-03-21 11:33] LABS: BASOPHILS # (AUTO) 0.1 X10^3/uL (0.0-0.1); EOSINOPHILS # (AUTO) 0.1 x10^3/uL (0.0-0.2); EOSINOPHILS % (AUTO) 0.9 % (0.9-2.9); HEMATOCRIT 31.5 % (36.0-47.0); HEMOGLOBIN 10.6 g/dL (12.0-16.0); LYMPHOCYTES # (AUTO) 1.9 X10^3/uL (1.3-2.9); LYMPHOCYTES % (AUTO) 25.3 % (21.0-51.0); MEAN CORPUSCULAR HEMOGLOBIN 27.2 pg (27.0-34.0); MEAN CORPUSCULAR HGB CONC 33.6 g/dL (33.0-35.0); MEAN CORPUSCULAR VOLUME 80.9 fL (80.0-100.0); MEAN PLATELET VOLUME 6.9 fL (7.4-11.0); MONOCYTES % (AUTO) 13.3 % (0.0-13.0); NEUTROPHILS # (AUTO) 4.4 x10^3/uL (2.2-4.8); NEUTROPHILS % (AUTO) 59.5 % (42.0-75.0); PLATELET COUNT 354 X10^3/uL (150.0-450.0); RED BLOOD COUNT 3.89 X10^6/uL (3.5-5.4); RED CELL DISTRIBUTION WIDTH 14.8 % (11.6-16.5); WHITE BLOOD COUNT 7.4 X10^3/uL (3.6-10.0)
--- NOTE | 2017-03-21 11:39 | RAD ---
Examination: Abdomen series with PA chest History: Abdominal pain, bleeding PA chest: Normal heart size with clear lungs. The aorta is dilated. There is no evidence for pleural fluid or pneumoperitoneum. Abdomen: Supine and upright views of the abdomen demonstrate slight gas distention of scattered segme nts of small bowel and colon. The appearance does not suggest mechanical obstruction. There is no pancho dence for ascites or mass formation. No free air is seen. Contrast material is noted within colon div erticula. Impression: No acute chest disease demonstrated. Intestinal gas pattern most consistent with nonobstr ucting ileus. Postsurgical clips in the abdomen. Contrast material remaining in colon diverticula. Reported By:
[2017-03-21] MEDS ORDERED: PHENERGAN INJ 25 MG IVP PRN (14:47)
[2017-03-21] MEDS ORDERED: ZOFRAN INJ 4 MG VIAL IVP PRN (14:47)
[2017-03-21 16:45] VITALS: BMI 35.3
[2017-03-21 18:32] LABS: BILIRUBIN,URINE NEGATIVE (NEGATIVE); BLOOD/HEMOGLOBIN,URINE 3+ (NEGATIVE); GLUCOSE, URINE NEGATIVE (NEGATIVE); KETONES,URINE NEGATIVE (NEGATIVE); LEUKOCYTE ESTERASE ,URINE 1+ (NEGATIVE); NITRITES,URINE NEGATIVE (NEGATIVE); PROTEIN,URINE 1+ (NEGATIVE); UROBILINOGEN,URINE 1+ (NORMAL)
[2017-03-21 18:37] LABS: APPEARANCE,URINE CLEAR (CLEAR); COLOR,URINE YELLOW (YELLOW)
[2017-03-21 18:38] LABS: BACTERIA,URINE NEGATIVE /HPF (NEGATIVE); MUCUS,URINE FEW /HPF (NEGATIVE); SQUAMOUS EPITHELIAL CELL,UR MODERATE /HPF (NEGATIVE)
[2017-03-21] MEDS: ROBITUSSIN DM PO PRN (20:54)
[2017-03-21 23:26] LABS: HEMATOCRIT 23.6 % (36.0-47.0)
[2017-03-22] MEDS: NS 1000 ML 1,000 ML IV SCH ×2 (04:56→19:55)
[2017-03-22 05:12] LABS: BASOPHILS # (AUTO) 0.1 X10^3/uL (0.0-0.1); BASOPHILS % (AUTO) 0.8 % (0.2-1.0); EOSINOPHILS # (AUTO) 0.1 x10^3/uL (0.0-0.2); EOSINOPHILS % (AUTO) 1.2 % (0.9-2.9); HEMATOCRIT 22.5 % (36.0-47.0); HEMOGLOBIN 7.6 g/dL (12.0-16.0); LYMPHOCYTES # (AUTO) 2.4 X10^3/uL (1.3-2.9); LYMPHOCYTES % (AUTO) 29.5 % (21.0-51.0); MEAN CORPUSCULAR HEMOGLOBIN 27.9 pg (27.0-34.0); MEAN CORPUSCULAR VOLUME 82.1 fL (80.0-100.0); MEAN PLATELET VOLUME 6.9 fL (7.4-11.0); MONOCYTES # (AUTO) 1.4 x10^3/uL (0.3-0.8); MONOCYTES % (AUTO) 16.5 % (0.0-13.0); NEUTROPHILS # (AUTO) 4.3 x10^3/uL (2.2-4.8); PLATELET COUNT 283 X10^3/uL (150.0-450.0); RED BLOOD COUNT 2.74 X10^6/uL (3.5-5.4); WHITE BLOOD COUNT 8.3 X10^3/uL (3.6-10.0)
[2017-03-22 05:28] LABS: ALANINE AMINOTRANSFERASE 13 Units/L (12-78); ALBUMIN 2.1 g/dL (3.4-5.0); ALKALINE PHOSPHATASE 57 Units/L (46-116); ASPARTATE AMINO TRANSFERASE 10 Units/L (15-37); BLOOD UREA NITROGEN 9 mg/dL (7-18); CALCIUM 8.3 mg/dL (8.5-10.1); CARBON DIOXIDE 27.5 mmol/L (21-32); CHLORIDE 105 mmol/L (98-107); COR CA(FOR HYPOALB) 9.8 mg/dL (8.5-10.1); CREATININE 0.74 mg/dL (0.55-1.02); SODIUM 137 mmol/L (136-145); TOTAL PROTEIN 5.1 g/dL (6.4-8.2); eGFR BLACK RACES > 60 (>60); eGFR NON BLACK RACES > 60 (>60)
[2017-03-22 05:39] LABS: HYPOCHROMASIA 1+; PLATELET MORPHOLOGY COMMENT NORMAL (NORMAL)
[2017-03-22] MEDS: PROTONIX INJ 40 MG VIAL 80 MG in NS 100 ML IV 80 ML IV SCH ×3 (06:36→19:54)
--- NOTE | 2017-03-22 08:25 | DR.H&P ---
H&P - History & Physical for Day of: H&P Date: 03/21/17 - Chief Complaint Chief Complaint: BLOOD IN STOOL - Allergies Allergies/Adverse Reactions: Allergies Allergy/AdvReac Type Severity Reaction Status Date / Time codeine AdvReac Verified 03/14/17 14:54 - History of Present Illness History of Present Illness: IS A 76 YEAR OLD PATIENT OF OURS WHO PRESENTED TO THE EMERGENCY ROOM WITH COMPLAINTS OF BRIGHT RED BLOOD IN HER STOOL. PATIENT REPORTS FIRST NOTICING BLOOD WHEN SHE WIPED ON TUESDAY. SHE REPORTS NOTICING BLOOD IN STOOL TODAY. ON EXAMINATION, HEART RATE IS NORMAL IN RATE AND RHYTHM. LUNGS ARE CLEAR TO AUSCULTATION. ABDOMEN IS ROUND, SOFT, AND NOTED WITH MILD DIFFUSE TENDERNESS. NORMAL BOWEL SOUNDS ARE NOTED IN ALL QUADRANTS. PATIENT ALSO COMPLAINS OF NAUSEA. ON ARRIVAL TO THE ER, HER VITAL SIGNS WERE 99.5-96-18-100%-136/80. LABS AND AN ABDOMINAL XRAY WERE OBTAINED. ABNORMAL LAB VALUES INCLUDE THE FOLLOWING: HGB 10.6, HCT 31.5, BUN 6, GLUCOSE 125, AST 13, ALBUMIN 2.8. URINALYSIS REPORTED WBC 0-2, RBC 4-5, LEUKOCYTES 1+, BACTERIA NEGATIVE, MODERATE SQUAMOUS EPITH CELLS, PROTEIN 1+, OCCULT BLOOD 3+, NITRITES NEGATIVE. STOOL OCCULT BLOOD POSITIVE. ABDOMINAL XRAY REPORTED NO ACUTE CHEST DISEASE DEMONSTRATED. INTESTINAL GAS PATTERN MOST CONSISTENT WITH NONOBSTRUCTING ILEUS. WE ADMITTED PATIENT FOR FURTHER TREATMENT AND EVALUATION. SHE WAS STARTED ON NORMAL SALINE AT 125ML/HR AND STARTED ON A PROTONIX DRIP. WE PLAN TO CONSULT WITH . WE WILL FOLLOW UP WITH AM LABS AND CONTINUE TO MONITOR PATIENT. - Past Medical History Past Medical History: Arthritis, Dyslipidemia, GERD, Hypertension - Past Surgical History Surgical History: Appendectomy, Hysterectomy - Family History Family Medical History: Cancer, Hypertension - Social History Does patient currently use any type of tobacco product: No Have you used tobacco products in the last 12 months: No Type of Tobacco Use: None Does any household member use tobacco: No Alcohol Use: None Drug Use: None - Medications Home Medications: Aspirin EC [ASPIRIN EC 81 MG *] 81 mg PO DAILY 03/21/17 [History Confirmed 03/21] Atorvastatin Calcium [Atorvastatin Calcium] 1 tab PO HS 03/21/17 [History Confirmed 03/21/17] Cefdinir [OMNICEF CAP 300 mg *] 1 cap PO BID 03/21/17 [History Confirmed ] Clopidogrel Bisulfate [PLAVIX TAB 75 MG *] 1 tab PO DAILY 03/21/17 [History Confirmed 03/21/17] Enalapril Maleate [VASOTEC TAB 20 MG *] 1 tab PO BID 03/21/17 [History Confirmed 03/21/17] Esomeprazole Magnesium [Nexium] 40 mg PO DAILY 03/21/17 [History Confirmed 03/21] Famotidine [Famotidine] 1 tab PO HS 03/21/17 [History Confirmed 03/21/17] Metoprolol Succinate Ext Rel [TOPROL XL 50 MG *] 1 tab PO BID 03/21/17 [History Confirmed 03/21/17] Montelukast Sodium [Montelukast Sodium] 1 tab PO DAILY 03/21/17 [History Confirmed 03/21/17] Naproxen [Naproxen] 1 tab PO BID 03/21/17 [History Confirmed 03/21/17] Ondansetron [Ondansetron Odt] 1 tab SL Q4-6H PRN 03/21/17 [History Confirmed ] - Review of Systems Constitutional: No Symptoms Reported, Weakness Eyes: No Symptoms Reported. denies: Pain, Vision Change, Conjunctivae Inflammation, Eyelid Inflammation, Redness, Other ENT: No Symptoms Reported. denies: Ear Pain, Ear Discharge, Nose Pain, Nose Discharge, Nose Congestion, Mouth Pain, Mouth Swelling, Throat Pain, Throat Swelling, Other Respiratory: No Symptoms Reported. denies: Cough, Dry, Shortness of Breath, Hemoptysis, SOB with Excertion, Pleuritic Pain, Sputum, Wheezing, Other Cardiovascular: No Symptoms Reported. denies: Chest Pain, Palpitations, Orthopnea, Paroxysmal Noc. Dyspnea, Edema, Light Headedness, Other Gastrointestinal: See HPI, Nausea, Abdominal Pain, Hematochezia. denies: Vomiting, Diarrhea, Constipation, Melena, Other Genitourinary: No Symptoms Reported. denies: Dysuria, Frequency, Incontinence, Hematuria, Retention, Other Musculoskeletal: Back Pain (LUMBAR ), Other (BILATERAL KNEE PAIN ) Skin: No Symptoms Reported. denies: Rash, Lesions, Jaundice, Bruising, Wound, Ecchymosis, Other Neurological: Weakness. denies: Numbness, Incoordination, Change in Speech, Confusion, Seizures, Other - Physical Exam Vital Signs: Temperature 98.4 F Pulse Rate [Left Brachial] 89 Pulse Rate 96 Respiratory Rate 18 Blood Pressure [Right Arm] 128/58 Blood Pressure [Left Arm] 133/59 Blood Pressure 136/80 O2 Sat by Pulse Oximetry 99 Oriented: Normal Eyes: Normal. negative: Blurred Vision, Diplopia, Discharge, Pain, Redness, Photophobia, Other Ear: Normal. negative: Right, Left, Swelling, Ecchymosis, Hemotypanum, Abrasion , Laceration Nose: Normal. negative: Injected, Discharge, Blood, Other Throat: Normal. negative: Tonsillar Hypertrophy, Red, Exudate, Dry, Other Respiratory: Clear Throughout Cardiovascular: Normal. negative: Tachycardia, Bradycardia, Irregular, S3, S4, Systolic, Diastolic, Murmur, Edema, Other : Normal. negative: Dysuria, Hematuria, Frequency, Discharge, Testicular Pain , Bleeding, , Other Auscultation: Bowel Sounds: Normal. negative: Bruit, Absent, Increased, Decreased, High Pitched, Other Palpation: Normal. negative: Spleen Enlarged, Liver Enlarged, Mass Pulsatile, Other Tenderness: Diffuse, Mild. negative: Rebound, Guarding, Rigidity Skin: Normal. negative: Wound, Bruising, Ecchymosis Musculoskeletal: Right, Left, Knee, Back:Lumbar, Tender Psychiatric: Normal Mood Description: Calm Affect: Normal Speech Pattern: Clear - Assessment/Plan (1) GI (gastrointestinal bleed) Qualifiers: GI bleed type/associated pathology: unspecified gastrointestinal hemorrhage type Qualified Code(s): K92.2 - Gastrointestinal hemorrhage, unspecified Status: Acute Plan: PROTONIX DRIP, NORMAL SALINE AT 125ML/HR, MONITOR H&H, CONSULT GASTROENTEROLOGY, ZOFRAN AND PHENERGAN FOR NAUSEA, CONTINUE TO MONITOR
[2017-03-22] MEDS ORDERED: NS 500 ML IV 500 ML IV ONE (09:05)
[2017-03-22] MEDS ORDERED: BENADRYL INJ 50 MG VIAL IVP PRN (09:05)
[2017-03-22] MEDS: SINGULAIR TAB 10 MG PO SCH (09:52)
[2017-03-22] MEDS: VASOTEC TAB 20 MG PO SCH ×2 (09:52→21:36)
[2017-03-22] MEDS: TOPROL XL PO SCH ×2 (09:52→21:36)
[2017-03-22 11:37] LABS: HEMOGLOBIN 7.4 g/dL (12.0-16.0)
[2017-03-22] MEDS: PEPCID 20 MG IV PREMIX* 20 MG/50 ML BAG IV SCH ×2 (12:08→21:37)
--- NOTE | 2017-03-22 12:14 | DR.CONSULT ---
Consult - Chief Complaint Chief Complaint: Patient referred for new onset anemia and occult GI Bleed with Hemoccult postivie stool - Allergies Allergies/Adverse Reactions: Allergies Allergy/AdvReac Type Severity Reaction Status Date / Time codeine AdvReac Verified 03/14/17 14:54 - History of Present Illness History of Present Illness: Patient is a 76yo female who was referred for anemia , occult gi bleed and hemoccult positive stool. Patient complains of seeing a large amount of blood in her stool which started yesterday. Patient states she had a colonoscopy which was performed 08/01/[address] Suarez in [place] which showed pandiverticulosis, internal hemrrhoids and an adenomatous colon polyp. Patient denies dysphagia, dyspepsia, nausea, vomiting, abdominal pain, diarrhea , constipation. - Past Medical History Past Medical History: Arthritis, Dyslipidemia, GERD, Hypertension - Past Surgical History Surgical History: Appendectomy, Hysterectomy - Family History Family Medical History: Cancer, Hypertension - Social History Does patient currently use any type of tobacco product: No Have you used tobacco products in the last 12 months: No Type of Tobacco Use: None Does any household member use tobacco: No Alcohol Use: None Drug Use: None - Medications Home Medications: Aspirin EC [ASPIRIN EC 81 MG *] 81 mg PO DAILY 03/21/17 [History Confirmed 03/21] Atorvastatin Calcium [Atorvastatin Calcium] 1 tab PO HS 03/21/17 [History Confirmed 03/21/17] Cefdinir [OMNICEF CAP 300 mg *] 1 cap PO BID 03/21/17 [History Confirmed ] Clopidogrel Bisulfate [PLAVIX TAB 75 MG *] 1 tab PO DAILY 03/21/17 [History Confirmed 03/21/17] Enalapril Maleate [VASOTEC TAB 20 MG *] 1 tab PO BID 03/21/17 [History Confirmed 03/21/17] Esomeprazole Magnesium [Nexium] 40 mg PO DAILY 03/21/17 [History Confirmed 03/21] Famotidine [Famotidine] 1 tab PO HS 03/21/17 [History Confirmed 03/21/17] Metoprolol Succinate Ext Rel [TOPROL XL 50 MG *] 1 tab PO BID 03/21/17 [History Confirmed 03/21/17] Montelukast Sodium [Montelukast Sodium] 1 tab PO DAILY 03/21/17 [History Confirmed 03/21/17] Naproxen [Naproxen] 1 tab PO BID 03/21/17 [History Confirmed 03/21/17] Ondansetron [Ondansetron Odt] 1 tab SL Q4-6H PRN 03/21/17 [History Confirmed ] - Review of Systems Constitutional: Weakness Eyes: No Symptoms Reported ENT: No Symptoms Reported Respiratory: No Symptoms Reported Cardiovascular: No Symptoms Reported Gastrointestinal: Hematochezia. denies: Nausea, Vomiting, Abdominal Pain, Diarrhea, Constipation, Melena Genitourinary: No Symptoms Reported Musculoskeletal: No Symptoms Reported Skin: No Symptoms Reported Neurological: No Symptoms Reported - Physical Exam Vital Signs: Temperature 98.4 F Pulse Rate [Left Brachial] 89 Pulse Rate 96 Respiratory Rate 18 Blood Pressure [Right Arm] 128/58 Blood Pressure [Left Arm] 133/59 Blood Pressure 136/80 O2 Sat by Pulse Oximetry 99 Oriented: Normal Eyes: Normal Ear: Normal Nose: Normal Throat: Normal Respiratory: Clear Throughout Cardiovascular: Normal : Normal Auscultation: Bowel Sounds: Normal Palpation: Normal, Other (no distention) Tenderness: Normal Skin: Normal Musculoskeletal: Normal Psychiatric: Normal Mood Description: Calm Affect: Normal Speech Pattern: Clear - Plan Plan: Assessment. 1. New onset anemia. 2. Hematochezia. 3. H/O adenomatous colon polyps. 4. GERD. Plan. 1. EGD today, continue protonix IV, monitor Hgb transfuse as needed. 2. Will need colonoscopy
--- NOTE | 2017-03-22 12:19 | PCM.PROG ---
Progress Note - Progress Note for Day of Date: 03/22/17 - Subjective Subjective: WAS ADMITTED FOR AN ACTIVE GI BLEED. TODAY, SHE IS ALERT AND ORIENTED, LYING IN BED ON MORNING ROUNDS. PATIENT'S DAUGHTER IS AT BEDSIDE. SHE CONTINUES WITH COMPLAINTS OF DIFFUSED ABDOMINAL PAIN AND BRIGHT RED BLOOD IN STOOLS. ON EXAMINATION, HEART RATE IS NORMAL IN RATE AND RHYTHM. LUNGS ARE NOTED CLEAR TO AUSCULTATION. ABDOMEN IS ROUND, SOFT, AND NOTED WITH MILD, DIFFUSE TENDERNESS. NORMAL BOWEL SOUNDS ARE NOTED IN ALL QUADRANTS. PATIENT HAS BEEN ON NSAIDS FOR SEVERAL WEEKS DUE TO LUMBAR PAIN AND BILATERAL KNEE PAIN. WE SUSPECT THAT THIS IS THE CAUSE OF THE GI BLEEDS. HER VITAL SIGNS THIS MORNING ARE 98.4-89-18-99%-128/58. ABNORMAL LAB VALUES INCLUDE THE FOLLOWING: RBC 2.74, HGB 7.6, HCT 22.5. THIS IS A DECREASE FROM H/H OF 10.6/31.5 ON ADMISSION. GLUCOSE 100, CALCIUM 8.3, AST 10, TOTAL PROTEIN 5.1, ALBUMIN 2.1, A/G RATIO 0.7. HAS BEEN CONSULTED AND WILL SEE PATIENT TODAY. WE WILL GO AHEAD AND TRANSFUSE 2 UNITS OF PRBC DUE TO DECREASED HGB THAT CONTINUES TO DROP. WE WILL ALSO OBTAIN A NON-CONTRAST CT OF THE ABD/PELVIS. OTHERWISE, WE WILL FOLLOW UP WITH AM LABS AND CONTINUE TO MONITOR PATIENT. - Past Medical Family Social History Past Med/Fam/Surg Hx: No changes since H&P Allergies: Allergies codeine Adverse Reaction (Verified 03/14/17 14:54) - Review of Systems ROS: No change since H&P - Vital Signs and I&O's Vital Signs: Temperature 98.4 F Pulse Rate [Left Brachial] 89 Pulse Rate 96 Respiratory Rate 18 Blood Pressure [Right Arm] 128/58 Blood Pressure [Left Arm] 133/59 Blood Pressure 136/80 O2 Sat by Pulse Oximetry 99 Intake and Output: Intake & Output 03/20/17 03/21/17 03/22/17 03/23/17 11:59 11:59 11:59 11:59 Intake Total 1093 Balance 1093 - Physical Exam Oriented: Normal Eyes: Normal. negative: Blurred Vision, Diplopia, Discharge, Pain, Redness, Photophobia, Other Ear: Normal. negative: Right, Left, Swelling, Ecchymosis, Hemotypanum, Abrasion , Laceration Nose: Normal. negative: Injected, Discharge, Blood, Other Throat: Normal. negative: Tonsillar Hypertrophy, Red, Exudate, Dry, Other Respiratory: Normal Cardiovascular: Normal. negative: Tachycardia, Bradycardia, Irregular, S3, S4, Systolic, Diastolic, Murmur, Edema, Other : Normal. negative: Dysuria, Hematuria, Frequency, Discharge, Testicular Pain , Bleeding, , Other Auscultation: Bowel Sounds: Normal. negative: Bruit, Absent, Increased, Decreased, High Pitched, Other Palpation: Normal Tenderness: Diffuse, Mild. negative: Rebound, Guarding, Rigidity Skin: Normal. negative: Wound, Bruising, Ecchymosis Musculoskeletal: Right, Left, Knee, Back:Lumbar, Tender Psychiatric: Normal Mood Description: Calm Affect: Normal Speech Pattern: Clear - Laboratory and Diagnostics Result Diagrams: 03/22/17 11:15 03/22/17 04:23 Labs: Laboratory WBC 8.3 X10^3/uL (3.6-10.0) 03/22/17 04:23 RBC 2.74 X10^6/uL (3.5-5.4) L 03/22/17 04:23 Hgb 7.4 g/dL (12.0-16.0) L 03/22/17 11:15 Hct 22.0 % (36.0-47.0) L 03/22/17 11:15 MCV 82.1 fL (80.0-100.0) 03/22/17 04:23 MCH 27.9 pg (27.0-34.0) 03/22/17 04:23 MCHC 34.0 g/dL (33.0-35.0) 03/22/17 04:23 RDW 15.0 % (11.6-16.5) 03/22/17 04:23 Plt Count 283 X10^3/uL (150.0-450.0) 03/22/17 04:23 Plt Count Comment Adequate (ADEQUATE) 03/22/17 04:23 MPV 6.9 fL (7.4-11.0) L 03/22/17 04:23 Neut % 52.0 % (42.0-75.0) 03/22/17 04:23 Lymph % 29.5 % (21.0-51.0) 03/22/17 04:23 Sutter % 16.5 % (0.0-13.0) H 03/22/17 04:23 Eos % 1.2 % (0.9-2.9) 03/22/17 04:23 Baso % 0.8 % (0.2-1.0) 03/22/17 04:23 Neut # 4.3 x10^3/uL (2.2-4.8) 03/22/17 04:23 Lymph # 2.4 X10^3/uL (1.3-2.9) 03/22/17 04:23 Sutter # 1.4 x10^3/uL (0.3-0.8) H 03/22/17 04:23 Eos # 0.1 x10^3/uL (0.0-0.2) 03/22/17 04:23 Baso # 0.1 X10^3/uL (0.0-0.1) 03/22/17 04:23 Absolute Nucleated RBC 0.1 /100WBC 03/22/17 04:23 Plt Morphology Comment Normal (NORMAL) 03/22/17 04:23 RBC Morphology Abnormal (NORMAL) A 03/22/17 04:23 Hypochromasia 1+ A 03/22/17 04:23 INR Target Range - 03/21/17 10:52 INR 1.09 (0.8-1.3) 03/21/17 10:52 PTT 33.8 SECONDS (22.9-36.5) 03/21/17 10:52 PTT Comment - 03/21/17 10:52 Sodium 137 mmol/L (136-145) 03/22/17 04:23 Corrected Sodium TNP 03/22/17 04:23 Potassium 4.0 mmol/L (3.5-5.1) 03/22/17 04:23 Chloride 105 mmol/L (98-107) 03/22/17 04:23 Carbon Dioxide 27.5 mmol/L (21-32) 03/22/17 04:23 BUN 9 mg/dL (7-18) 03/22/17 04:23 Creatinine 0.74 mg/dL (0.55-1.02) 03/22/17 04:23 Est GFR (MDRD) Af Amer > 60 (>60) 03/22/17 04:23 Est GFR (MDRD) Non-Af > 60 (>60) 03/22/17 04:23 Glucose 100 mg/dL (65-99) H 03/22/17 04:23 Calcium 8.3 mg/dL (8.5-10.1) L 03/22/17 04:23 Corrected Calcium 9.8 mg/dL (8.5-10.1) 03/22/17 04:23 Total Bilirubin 0.30 mg/dL (0.2-1.0) 03/22/17 04:23 AST 10 Units/L (15-37) L 03/22/17 04:23 ALT 13 Units/L (12-78) 03/22/17 04:23 Alkaline Phosphatase 57 Units/L (46-116) 03/22/17 04:23 Total Protein 5.1 g/dL (6.4-8.2) L 03/22/17 04:23 Albumin 2.1 g/dL (3.4-5.0) L 03/22/17 04:23 Globulin 3.0 g/dL (2.5-4.5) 03/22/17 04:23 Albumin/Globulin Ratio 0.7 Ratio (1.1-2.1) L 03/22/17 04:23 Specimen Type Clean catch urine 03/21/17 18:22 Urine Color Yellow (YELLOW) 03/21/17 18:22 Urine Appearance Clear (CLEAR) 03/21/17 18:22 Urine pH 7.0 (5.0 - 8.0) 03/21/17 18:22 Ur Specific [place] 1.010 (1.000-1.030) 03/21/17 18:22 Urine Protein 1+ (NEGATIVE) 03/21/17 18:22 Urine Glucose (UA) Negative (NEGATIVE) 03/21/17 18:22 Urine Ketones Negative (NEGATIVE) 03/21/17 18: Urine Occult Blood 3+ (NEGATIVE) 03/21/17 18:22 Urine Nitrite Negative (NEGATIVE) 03/21/17 18:22 Urine Bilirubin Negative (NEGATIVE) 03/21/17 18:22 Urine Urobilinogen 1+ (NORMAL) 03/21/17 18:22 Ur Leukocyte Esterase 1+ (NEGATIVE) 11/20/17 18:22 Urine RBC 4-5 /HPF (NEGATIVE) 03/21/17 18:22 Urine WBC 0-2 /HPF (NEGATIVE) 03/21/17 18:22 Ur Squamous Epith Cells Moderate /HPF (NEGATIVE) 03/21/17 18:22 Urine Bacteria Negative /HPF (NEGATIVE) 03/21/17 18:22 Urine Mucus Few /HPF (NEGATIVE) 03/21/17 18:22 Ur Culture Indicated? No/not indicated 03/21/17 18:22 Stool Description 400g bloody liquid 03/21/17 11:10 Stl Occult Blood (IFOB) Positive (NEGATIVE) A 03/21/17 11:10 H. pylori IgG Antibody Negative (NEGATIVE) 03/21/17 10:52 Blood Type O NEGATIVE 03/22/17 09:20 Antibody Screen Negative 03/22/17 09:20 Crossmatch See Detail 03/22/17 09:20 - Plan (1) GI (gastrointestinal bleed) Status: Acute Qualifiers: GI bleed type/associated pathology: unspecified gastrointestinal hemorrhage type Qualified Code(s): K92.2 - Gastrointestinal hemorrhage, unspecified Plan: TRANSFUSE 2 UNITS PRBC, OBTAIN ABD/PELVIS CT WITHOUT CONTRAST, PEPCID 20MG IV BID, PROTONIX DRIP, NORMAL SALINE AT 125ML/HR, MONITOR H&H, CONSULT GASTROENTEROLOGY, ZOFRAN AND PHENERGAN FOR NAUSEA, CONTINUE TO MONITOR
[2017-03-22] MEDS ORDERED: DIPRIVAN VIAL 20 ML ONE (13:34)
[2017-03-22] MEDS ORDERED: LR 1000 ML IV 1,000 ML IV ONE (13:34)
[2017-03-22 14:43] LABS: HEMATOCRIT 24.1 % (36.0-47.0); HEMOGLOBIN 8.2 g/dL (12.0-16.0)
[2017-03-22] MEDS: ROBITUSSIN DM PO PRN (14:56)
--- NOTE | 2017-03-22 15:43 | CT ---
CT OF THE ABDOMEN AND PELVIS WITHOUT CONTRAST HISTORY: Low hemoglobin and bloody stool Comparison: 03/03/2017 Technique: Multiple axial images of the abdomen and pelvis were obtained from the lung bases to the pubic symphy sis without the administration of IV contrast. Dose reduction techniques including Automated Exposur e Control (AEC) and adjustment of mA and kV were utlized. Findings: The heart is normal in size. There is no pericardial effusion. Lung bases are clear without focal con solidation, pleural effusion or pneumothorax. The sensitivity for focal lesion detection within the solid abdominal viscera is diminished without t he use of IV contrast. Liver and spleen are normal in size, and contour. No focal lesions. No ductal dilitation. Gallbladder is present. No calcified gallstones or gallbladder wall thickening. The pancreas is unremarkable. Ad renal glands are normal. Kidneys are normal in contour without hydronephrosis or nephrolithiasis. No bowel obstruction or inflammation. Severe rasmussen diverticulosis without definite focal inflammation o r intraluminal hyper attenuation to suggest source of bleed No abnormal appearing mesenteric or retro peritoneal lymph nodes. No free fluid or fluid collections. The bladder is normal in appearance. Status post hysterectomy. No free fluid or abnormal pelvic lymph nodes. No aggressive osseous lesions. IMPRESSION: 1. No source of patient's anemia or bloody stool is identified on this examination. 2. Severe diverticulosis without focal inflammation. Reported By:
[2017-03-22] MEDS ORDERED: PEPCID TAB 20 MG PO SCH (21:00)
[2017-03-22] MEDS ORDERED: FAMOTIDINE PO SCH (21:00)
[2017-03-22] MEDS: LIPITOR TAB 40 MG PO SCH (21:37)
[2017-03-22 21:38] LABS: HEMATOCRIT 25.4 % (36.0-47.0)
[2017-03-23] MEDS: PROTONIX INJ 40 MG VIAL 80 MG in NS 100 ML IV 80 ML IV SCH ×2 (04:48→22:07)
[2017-03-23] MEDS ORDERED: PROTONIX INJ 40 MG VIAL ONE ×2 (04:54→05:10)
[2017-03-23] MEDS ORDERED: NS 100 ML IV 0 ML IV ONE (04:56)
[2017-03-23 04:57] LABS: BASOPHILS # (AUTO) 0.1 X10^3/uL (0.0-0.1); EOSINOPHILS # (AUTO) 0.1 x10^3/uL (0.0-0.2); HEMOGLOBIN 7.3 g/dL (12.0-16.0)
[2017-03-23 05:05] LABS: BASOPHILS % (AUTO) 0.6 % (0.2-1.0); EOSINOPHILS % (AUTO) 1.3 % (0.9-2.9); HEMATOCRIT 21.1 % (36.0-47.0); LYMPHOCYTES % (AUTO) 24.3 % (21.0-51.0); MEAN CORPUSCULAR HEMOGLOBIN 27.8 pg (27.0-34.0); MEAN CORPUSCULAR HGB CONC 34.6 g/dL (33.0-35.0); MEAN CORPUSCULAR VOLUME 80.4 fL (80.0-100.0); MEAN PLATELET VOLUME 6.9 fL (7.4-11.0); MONOCYTES # (AUTO) 1.1 x10^3/uL (0.3-0.8); MONOCYTES % (AUTO) 13.2 % (0.0-13.0); NEUTROPHILS # (AUTO) 4.9 x10^3/uL (2.2-4.8); NEUTROPHILS % (AUTO) 60.6 % (42.0-75.0); PLATELET COUNT 270 X10^3/uL (150.0-450.0); RED BLOOD COUNT 2.62 X10^6/uL (3.5-5.4); RED CELL DISTRIBUTION WIDTH 14.7 % (11.6-16.5)
[2017-03-23 05:21] LABS: ANISOCYTOSIS SLIGHT; HYPOCHROMASIA 1+; OVALOCYTES PRESENT; PLATELET MORPHOLOGY COMMENT NORMAL (NORMAL)
[2017-03-23 05:22] LABS: BURR CELLS PRESENT
[2017-03-23] MEDS: NS 1000 ML 1,000 ML IV SCH ×2 (05:37→22:07)
[2017-03-23 06:44] LABS: ALANINE AMINOTRANSFERASE 14 Units/L (12-78); ALBUMIN 2.3 g/dL (3.4-5.0); ALKALINE PHOSPHATASE 62 Units/L (46-116); ASPARTATE AMINO TRANSFERASE 19 Units/L (15-37); BLOOD UREA NITROGEN 5 mg/dL (7-18); CALCIUM 8.4 mg/dL (8.5-10.1); CARBON DIOXIDE 23.3 mmol/L (21-32); CHLORIDE 106 mmol/L (98-107); COR CA(FOR HYPOALB) 9.8 mg/dL (8.5-10.1); CREATININE 0.71 mg/dL (0.55-1.02); SODIUM 138 mmol/L (136-145); TOTAL PROTEIN 5.1 g/dL (6.4-8.2); eGFR BLACK RACES > 60 (>60); eGFR NON BLACK RACES > 60 (>60)
[2017-03-23 08:30] LABS: HEMATOCRIT 23.4 % (36.0-47.0); HEMOGLOBIN 7.9 g/dL (12.0-16.0)
[2017-03-23] MEDS: TYLENOL 325 MG TAB PO PRN (09:05)
[2017-03-23] MEDS: TOPROL XL PO SCH ×2 (09:11→21:21)
[2017-03-23] MEDS: PEPCID 20 MG IV PREMIX* 20 MG/50 ML BAG IV SCH ×2 (09:11→21:22)
[2017-03-23] MEDS: SINGULAIR TAB 10 MG PO SCH (09:11)
[2017-03-23] MEDS: VASOTEC TAB 20 MG PO SCH ×2 (09:11→21:22)
[2017-03-23] MEDS ORDERED: MAALOX or MYLANTA PO PRN (15:49)
[2017-03-23 18:56] LABS: HEMATOCRIT 33.5 % (36.0-47.0); HEMOGLOBIN 11.2 g/dL (12.0-16.0)
[2017-03-23] MEDS: LIPITOR TAB 40 MG PO SCH (21:22)
[2017-03-23] MEDS: RESTORIL CAP 15 MG PO PRN (22:24)
[2017-03-24 06:05] LABS: BASOPHILS # (AUTO) 0.1 X10^3/uL (0.0-0.1); BASOPHILS % (AUTO) 0.8 % (0.2-1.0); EOSINOPHILS # (AUTO) 0.1 x10^3/uL (0.0-0.2); EOSINOPHILS % (AUTO) 1.2 % (0.9-2.9); HEMATOCRIT 28.8 % (36.0-47.0); HEMOGLOBIN 9.9 g/dL (12.0-16.0); LYMPHOCYTES # (AUTO) 2.3 X10^3/uL (1.3-2.9); LYMPHOCYTES % (AUTO) 25.6 % (21.0-51.0); MEAN CORPUSCULAR HEMOGLOBIN 28.2 pg (27.0-34.0); MEAN CORPUSCULAR HGB CONC 34.5 g/dL (33.0-35.0); MEAN CORPUSCULAR VOLUME 81.6 fL (80.0-100.0); MEAN PLATELET VOLUME 6.9 fL (7.4-11.0); MONOCYTES # (AUTO) 1.1 x10^3/uL (0.3-0.8); MONOCYTES % (AUTO) 12.6 % (0.0-13.0); NEUTROPHILS # (AUTO) 5.4 x10^3/uL (2.2-4.8); NEUTROPHILS % (AUTO) 59.8 % (42.0-75.0); PLATELET COUNT 269 X10^3/uL (150.0-450.0); RED BLOOD COUNT 3.53 X10^6/uL (3.5-5.4); RED CELL DISTRIBUTION WIDTH 15.5 % (11.6-16.5)
[2017-03-24] MEDS: NS 1000 ML 1,000 ML IV SCH ×6 (06:19→18:11)
[2017-03-24] MEDS: ROBITUSSIN DM PO PRN (06:20)
[2017-03-24 06:30] LABS: ALANINE AMINOTRANSFERASE 12 Units/L (12-78); ALBUMIN 2.3 g/dL (3.4-5.0); ALKALINE PHOSPHATASE 66 Units/L (46-116); ASPARTATE AMINO TRANSFERASE 12 Units/L (15-37); BLOOD UREA NITROGEN 5 mg/dL (7-18); CALCIUM 8.5 mg/dL (8.5-10.1); CARBON DIOXIDE 23.9 mmol/L (21-32); CHLORIDE 107 mmol/L (98-107); COR CA(FOR HYPOALB) 9.9 mg/dL (8.5-10.1); CREATININE 0.79 mg/dL (0.55-1.02); SODIUM 140 mmol/L (136-145); TOTAL PROTEIN 5.4 g/dL (6.4-8.2); eGFR BLACK RACES > 60 (>60); eGFR NON BLACK RACES > 60 (>60)
[2017-03-24] MEDS: PROTONIX INJ 40 MG VIAL 80 MG in NS 100 ML IV 80 ML IV SCH ×3 (07:12→18:11)
[2017-03-24] MEDS: PEPCID 20 MG IV PREMIX* 20 MG/50 ML BAG IV SCH ×2 (09:02→21:21)
[2017-03-24] MEDS: SINGULAIR TAB 10 MG PO SCH (09:03)
[2017-03-24] MEDS: TOPROL XL PO SCH ×2 (09:03→21:21)
[2017-03-24] MEDS: VASOTEC TAB 20 MG PO SCH ×2 (09:03→21:21)
[2017-03-24] MEDS: LIPITOR TAB 40 MG PO SCH (21:21)
[2017-03-24] MEDS: RESTORIL CAP 15 MG PO PRN (22:09)
[2017-03-25] MEDS: NS 1000 ML 1,000 ML IV SCH ×5 (00:11→12:55)
[2017-03-25 05:46] LABS: BASOPHILS # (AUTO) 0.1 X10^3/uL (0.0-0.1); BASOPHILS % (AUTO) 0.4 % (0.2-1.0); EOSINOPHILS # (AUTO) 0.1 x10^3/uL (0.0-0.2); EOSINOPHILS % (AUTO) 0.7 % (0.9-2.9); HEMATOCRIT 25.7 % (36.0-47.0); HEMOGLOBIN 8.8 g/dL (12.0-16.0); LYMPHOCYTES # (AUTO) 2.2 X10^3/uL (1.3-2.9); MEAN CORPUSCULAR HGB CONC 34.1 g/dL (33.0-35.0); MEAN CORPUSCULAR VOLUME 82.3 fL (80.0-100.0); MONOCYTES # (AUTO) 1.3 x10^3/uL (0.3-0.8); MONOCYTES % (AUTO) 10.2 % (0.0-13.0); NEUTROPHILS # (AUTO) 9.5 x10^3/uL (2.2-4.8); NEUTROPHILS % (AUTO) 71.7 % (42.0-75.0); PLATELET COUNT 274 X10^3/uL (150.0-450.0); RED BLOOD COUNT 3.12 X10^6/uL (3.5-5.4); RED CELL DISTRIBUTION WIDTH 15.4 % (11.6-16.5); WHITE BLOOD COUNT 13.2 X10^3/uL (3.6-10.0)
[2017-03-25 05:50] LABS: ALANINE AMINOTRANSFERASE 11 Units/L (12-78); ALBUMIN 2.3 g/dL (3.4-5.0); ALKALINE PHOSPHATASE 71 Units/L (46-116); ASPARTATE AMINO TRANSFERASE 12 Units/L (15-37); BLOOD UREA NITROGEN 5 mg/dL (7-18); CARBON DIOXIDE 22.6 mmol/L (21-32); CHLORIDE 107 mmol/L (98-107); COR CA(FOR HYPOALB) 9.4 mg/dL (8.5-10.1); CREATININE 0.72 mg/dL (0.55-1.02); SODIUM 139 mmol/L (136-145); TOTAL PROTEIN 5.4 g/dL (6.4-8.2); eGFR BLACK RACES > 60 (>60); eGFR NON BLACK RACES > 60 (>60)
[2017-03-25] MEDS: PROTONIX INJ 40 MG VIAL 80 MG in NS 100 ML IV 80 ML IV SCH ×2 (06:12→14:28)
[2017-03-25] MEDS ORDERED: K-RIDER 10 MEQ/NS 100 ML 10 MEQ/100 ML BAG IV PRN (07:05)
[2017-03-25] MEDS ORDERED: POTASSIUM CHLORIDE LIQ 20 MEQ UDC PO PRN (07:05)
[2017-03-25] MEDS ORDERED: POTASSIUM CHL 40 MEQ/NS 0.45% 500 ML IV NR (08:00)
[2017-03-25] MEDS ORDERED: POTASSIUM CHL 60 MEQ/NS 0.45% 500 ML IV NR (08:00)
[2017-03-25] MEDS: PEPCID 20 MG IV PREMIX* 20 MG/50 ML BAG IV SCH ×2 (08:01→21:22)
[2017-03-25] MEDS: SINGULAIR TAB 10 MG PO SCH (08:02)
[2017-03-25] MEDS: VASOTEC TAB 20 MG PO SCH ×2 (08:02→21:22)
[2017-03-25] MEDS: TOPROL XL PO SCH ×2 (08:02→21:22)
[2017-03-25] MEDS: K-LYTE EFFERVESCENT PO PRN (08:03)
[2017-03-25] MEDS: TYLENOL 325 MG TAB PO PRN ×4 (11:33→23:50)
[2017-03-25] MEDS: LIDODERM 5% PATCH TD SCH (12:13)
[2017-03-25] MEDS ORDERED: TRANEXAMIC ACID 1,000 MG in NS 100 ML IV 100 ML IV SCH (13:00)
[2017-03-25 13:21] LABS: IRON 21 ug/dL (50-175); TOTAL IRON BINDING CAPACITY 158 ug/dL (250-450)
[2017-03-25] MEDS ORDERED: TRANEXAMIC ACID 1,000 MG in NS 1000 ML 1,000 ML IV SCH (13:30)
[2017-03-25] MEDS: RESTORIL CAP 15 MG PO PRN (21:21)
[2017-03-25] MEDS: LIPITOR TAB 40 MG PO SCH (21:22)
[2017-03-26] MEDS: PROTONIX INJ 40 MG VIAL 80 MG in NS 100 ML IV 80 ML IV SCH ×3 (03:02→20:33)
[2017-03-26 07:12] LABS: BLOOD UREA NITROGEN 4 mg/dL (7-18); CALCIUM 7.9 mg/dL (8.5-10.1); CARBON DIOXIDE 24.7 mmol/L (21-32); CHLORIDE 108 mmol/L (98-107); COR NA(FOR HYPERGLY) 140 mmol/L (136-145); CREATININE 0.69 mg/dL (0.55-1.02); SODIUM 140 mmol/L (136-145); eGFR BLACK RACES > 60 (>60); eGFR NON BLACK RACES > 60 (>60)
[2017-03-26 07:20] LABS: BASOPHILS % (AUTO) 0.3 % (0.2-1.0); EOSINOPHILS # (AUTO) 0.1 x10^3/uL (0.0-0.2); EOSINOPHILS % (AUTO) 0.6 % (0.9-2.9); HEMOGLOBIN 7.1 g/dL (12.0-16.0); LYMPHOCYTES # (AUTO) 1.6 X10^3/uL (1.3-2.9); LYMPHOCYTES % (AUTO) 14.7 % (21.0-51.0); MEAN CORPUSCULAR HEMOGLOBIN 27.9 pg (27.0-34.0); MEAN CORPUSCULAR VOLUME 82.1 fL (80.0-100.0); MONOCYTES # (AUTO) 1.7 x10^3/uL (0.3-0.8); MONOCYTES % (AUTO) 15.2 % (0.0-13.0); NEUTROPHILS # (AUTO) 7.8 x10^3/uL (2.2-4.8); NEUTROPHILS % (AUTO) 69.2 % (42.0-75.0); PLATELET COUNT 236 X10^3/uL (150.0-450.0); RED BLOOD COUNT 2.56 X10^6/uL (3.5-5.4); RED CELL DISTRIBUTION WIDTH 15.7 % (11.6-16.5); WHITE BLOOD COUNT 11.2 X10^3/uL (3.6-10.0)
[2017-03-26 07:37] LABS: ALANINE AMINOTRANSFERASE 9 Units/L (12-78); ALBUMIN 1.9 g/dL (3.4-5.0); ALKALINE PHOSPHATASE 60 Units/L (46-116); ASPARTATE AMINO TRANSFERASE 7 Units/L (15-37); TOTAL PROTEIN 4.6 g/dL (6.4-8.2)
[2017-03-26] MEDS: TYLENOL 325 MG TAB PO PRN (07:38)
[2017-03-26 08:13] LABS: COR CA(FOR HYPOALB) 9.6 mg/dL (8.5-10.1)
[2017-03-26 08:24] LABS: BURR CELLS PRESENT; PLATELET MORPHOLOGY COMMENT NORMAL (NORMAL); POIKILOCYTOSIS SLIGHT
[2017-03-26] MEDS: TOPROL XL PO SCH ×2 (08:52→20:28)
[2017-03-26] MEDS: VASOTEC TAB 20 MG PO SCH ×2 (08:52→20:27)
[2017-03-26] MEDS: SINGULAIR TAB 10 MG PO SCH (08:52)
[2017-03-26] MEDS: LIDODERM 5% PATCH TD SCH (08:53)
[2017-03-26] MEDS: PEPCID 20 MG IV PREMIX* 20 MG/50 ML BAG IV SCH ×2 (08:53→20:27)
[2017-03-26] MEDS: K-LYTE EFFERVESCENT PO PRN (08:55)
[2017-03-26] MEDS: NS 1000 ML 1,000 ML IV SCH (15:46)
[2017-03-26 18:34] LABS: HEMATOCRIT 22.5 % (36.0-47.0); HEMOGLOBIN 7.7 g/dL (12.0-16.0)
[2017-03-26] MEDS: ULTRAM PO PRN (20:27)
[2017-03-26] MEDS: LIPITOR TAB 40 MG PO SCH (20:28)
[2017-03-26] MEDS: RESTORIL CAP 15 MG PO PRN (20:28)
[2017-03-27] MEDS: PROTONIX INJ 40 MG VIAL 80 MG in NS 100 ML IV 80 ML IV SCH ×4 (00:57→17:23)
[2017-03-27 04:34] LABS: BASOPHILS # (AUTO) 0.1 X10^3/uL (0.0-0.1); BASOPHILS % (AUTO) 0.7 % (0.2-1.0); EOSINOPHILS # (AUTO) 0.1 x10^3/uL (0.0-0.2); EOSINOPHILS % (AUTO) 0.9 % (0.9-2.9); HEMATOCRIT 20.6 % (36.0-47.0); LYMPHOCYTES # (AUTO) 1.7 X10^3/uL (1.3-2.9); MEAN CORPUSCULAR HGB CONC 33.7 g/dL (33.0-35.0); MEAN PLATELET VOLUME 6.9 fL (7.4-11.0); MONOCYTES # (AUTO) 1.3 x10^3/uL (0.3-0.8); MONOCYTES % (AUTO) 10.7 % (0.0-13.0); NEUTROPHILS # (AUTO) 8.8 x10^3/uL (2.2-4.8); NEUTROPHILS % (AUTO) 73.7 % (42.0-75.0); PLATELET COUNT 249 X10^3/uL (150.0-450.0); RED BLOOD COUNT 2.49 X10^6/uL (3.5-5.4); RED CELL DISTRIBUTION WIDTH 15.7 % (11.6-16.5); WHITE BLOOD COUNT 11.9 X10^3/uL (3.6-10.0)
[2017-03-27 04:48] LABS: ALANINE AMINOTRANSFERASE 8 Units/L (12-78); ALBUMIN 1.8 g/dL (3.4-5.0); ALKALINE PHOSPHATASE 61 Units/L (46-116); ASPARTATE AMINO TRANSFERASE 9 Units/L (15-37); BLOOD UREA NITROGEN 5 mg/dL (7-18); CALCIUM 7.4 mg/dL (8.5-10.1); CARBON DIOXIDE 25.7 mmol/L (21-32); CHLORIDE 104 mmol/L (98-107); COR CA(FOR HYPOALB) 9.2 mg/dL (8.5-10.1); CREATININE 0.69 mg/dL (0.55-1.02); SODIUM 136 mmol/L (136-145); TOTAL PROTEIN 4.8 g/dL (6.4-8.2); eGFR BLACK RACES > 60 (>60); eGFR NON BLACK RACES > 60 (>60)
[2017-03-27 05:56] LABS: ANISOCYTOSIS SLIGHT; BURR CELLS PRESENT; HYPOCHROMASIA 1+; OVALOCYTES PRESENT; PLATELET MORPHOLOGY COMMENT NORMAL (NORMAL)
[2017-03-27] MEDS: LIDODERM 5% PATCH TD SCH (08:31)
[2017-03-27] MEDS: TOPROL XL PO SCH (08:32)
[2017-03-27] MEDS: SINGULAIR TAB 10 MG PO SCH (08:32)
[2017-03-27] MEDS: VASOTEC TAB 20 MG PO SCH (08:33)
[2017-03-27] MEDS: PEPCID 20 MG IV PREMIX* 20 MG/50 ML BAG IV SCH (08:34)
[2017-03-27 12:15] LABS: HEMATOCRIT 21.5 % (36.0-47.0); HEMOGLOBIN 7.4 g/dL (12.0-16.0)
[2017-03-27] MEDS: NS 1000 ML 1,000 ML IV SCH (13:16)
[2017-03-27 16:23] VITALS: BP 117/72
[2017-03-27] MEDS: ULTRAM PO PRN (19:44)
--- NOTE | 2017-03-29 10:13 | PCM.PROG ---
Progress Note - Progress Note for Day of Date: 03/23/17 - Subjective Subjective: WAS ADMITTED FOR AN ACTIVE GI BLEED. TODAY, SHE IS ALERT AND ORIENTED, LYING IN BED ON MORNING ROUNDS. PATIENT'S DAUGHTER IS AT BEDSIDE. SHE CONTINUES WITH COMPLAINTS OF DIFFUSE ABDOMINAL PAIN AND BLOOD IN STOOLS. ON EXAMINATION, HEART RATE IS NORMAL IN RATE AND RHYTHM. LUNGS ARE NOTED CLEAR TO AUSCULTATION. ABDOMEN IS ROUND, SOFT, AND NOTED CONTINUES WITH TENDERNESS ON PALPATION. NORMAL BOWEL SOUNDS ARE NOTED IN ALL QUADRANTS. HER VITAL SIGNS THIS MORNING ARE 98.1-82-18-97%-188/92. ABNORMAL LAB VALUES INCLUDE THE FOLLOWING: RBC 2.62, HGB 7.3, HCT 21.1, BUN 5, CALCIUM 8.4, TOTAL PROTEIN 5.1, ALBUMIN 2.3. THIS IS A DECREASE FROM H/H OF 10.6/31.5 ON ADMISSION. GLUCOSE 100, CALCIUM 8.3, AST 10, TOTAL PROTEIN 5.1, ALBUMIN 2.1, A/G RATIO 0.7. WE OBTAINED AN ABD/PELVIS CT YESTERDAY. IT REPORTED NO IDENTIFICATION OF SOURCE OF PATIENT S ANEMIA OR BLOODY STOOL. SEVERE DIVERTICULOSIS WITHOUT FOCAL INFLAMMATION. ALSO PERFORMED AN EGD ON PATIENT YESTERDAY MORNING. FINDINGS INCLUDE EROSIVE GASTRITIS, DISTAL ESOPHAGITIS, AND HIATAL HERNIA. RECOMMENDS A COLONOSCOPY IF BLEEDING CONTINUES. BLOOD PRODUCT TRANSFUSION WAS HELD DUE TO AN INCREASE IN HGB TO 8.2 PER ORDERS OF . HGB WAS NOTED TO BE 9.0 AT 20:30 , BUT FELL TO 7.3 ON MORNING LABS. WE WILL, AGAIN, ORDER FOR TRANSFUSION OF 2 UNITS PRBC TO BE TRANSFUSED. OTHERWISE, WE WILL FOLLOW UP WITH AM LABS AND CONTINUE TO MONITOR PATIENT. - Past Medical Family Social History Past Med/Fam/Surg Hx: No changes since H&P Allergies: Allergies codeine Adverse Reaction (Verified 03/14/17 14:54) - Review of Systems ROS: No change since H&P - Vital Signs and I&O's Vital Signs: Temperature 99.3 F Pulse Rate [Right Brachial] 72 Pulse Rate [Left Brachial] 73 Pulse Rate 96 Respiratory Rate 20 Blood Pressure [Right Arm] 117/72 Blood Pressure [Left Arm] 134/62 Blood Pressure 136/80 O2 Sat by Pulse Oximetry 98 Intake and Output: Intake & Output 03/26/17 03/27/17 03/28/17 03/29/17 11:59 11:59 11:59 11:59 Intake Total 2470 1720 1280 Balance 2470 1720 1280 - Physical Exam Oriented: Normal Eyes: Normal. negative: Blurred Vision, Diplopia, Discharge, Pain, Redness, Photophobia, Other Ear: Normal. negative: Right, Left, Swelling, Ecchymosis, Hemotypanum, Abrasion , Laceration Nose: Normal. negative: Injected, Discharge, Blood, Other Throat: Normal. negative: Tonsillar Hypertrophy, Red, Exudate, Dry, Other Respiratory: Normal Cardiovascular: Normal. negative: Tachycardia, Bradycardia, Irregular, S3, S4, Systolic, Diastolic, Murmur, Edema, Other : Normal. negative: Dysuria, Hematuria, Frequency, Discharge, Testicular Pain , Bleeding, , Other Auscultation: Bowel Sounds: Normal. negative: Bruit, Absent, Increased, Decreased, High Pitched, Other Palpation: Normal Tenderness: Diffuse, Mild. negative: Rebound, Guarding, Rigidity Skin: Normal. negative: Wound, Bruising, Ecchymosis Musculoskeletal: Right, Left, Knee, Back:Lumbar, Tender Psychiatric: Normal Mood Description: Calm Affect: Normal Speech Pattern: Clear, Appropriate - Laboratory and Diagnostics Result Diagrams: 03/27/17 12:06 03/27/17 03:40 Labs: Laboratory WBC 11.9 X10^3/uL (3.6-10.0) H 03/27/17 03:40 RBC 2.49 X10^6/uL (3.5-5.4) L 03/27/17 03:40 Hgb 7.4 g/dL (12.0-16.0) L 03/27/17 12:06 Hct 21.5 % (36.0-47.0) L 03/27/17 12:06 MCV 83.0 fL (80.0-100.0) 03/27/17 03:40 MCH 28.0 pg (27.0-34.0) 03/27/17 03:40 MCHC 33.7 g/dL (33.0-35.0) 03/27/17 03:40 RDW 15.7 % (11.6-16.5) 03/27/17 03:40 Plt Count 249 X10^3/uL (150.0-450.0) 03/27/17 03:40 Plt Count Comment Adequate (ADEQUATE) 03/27/17 03:40 MPV 6.9 fL (7.4-11.0) L 03/27/17 03:40 Neut % 73.7 % (42.0-75.0) 03/27/17 03:40 Lymph % 14.0 % (21.0-51.0) L 03/27/17 03:40 [place] % 10.7 % (0.0-13.0) 03/27/17 03:40 Eos % 0.9 % (0.9-2.9) 03/27/17 03:40 Baso % 0.7 % (0.2-1.0) 03/27/17 03:40 Neut # 8.8 x10^3/uL (2.2-4.8) H 03/27/17 03:40 Lymph # 1.7 X10^3/uL (1.3-2.9) 03/27/17 03:40 [place] # 1.3 x10^3/uL (0.3-0.8) H 03/27/17 03:40 Eos # 0.1 x10^3/uL (0.0-0.2) 03/27/17 03:40 Baso # 0.1 X10^3/uL (0.0-0.1) 03/27/17 03:40 Absolute Nucleated RBC 0.0 /100WBC 03/27/17 03:40 Plt Morphology Comment Normal (NORMAL) 03/27/17 03:40 RBC Morphology Abnormal (NORMAL) A 03/27/17 03:40 Hypochromasia 1+ A 03/27/17 03:40 Poikilocytosis Slight A 03/26/17 05:43 Anisocytosis Slight A 03/27/17 03:40 Ovalocytes Present 03/27/17 03:40 [place] Cells Present 03/27/17 03:40 INR Target Range - 03/21/17 10:52 INR 1.09 (0.8-1.3) 03/21/17 10:52 PTT 33.8 SECONDS (22.9-36.5) 03/21/17 10:52 PTT Comment - 03/21/17 10:52 Sodium 136 mmol/L (136-145) 03/27/17 03:40 Corrected Sodium TNP 03/27/17 03:40 Potassium 3.6 mmol/L (3.5-5.1) 03/27/17 03:40 Chloride 104 mmol/L (98-107) 03/27/17 03:40 Carbon Dioxide 25.7 mmol/L (21-32) 03/27/17 03:40 BUN 5 mg/dL (7-18) L 03/27/17 03:40 Creatinine 0.69 mg/dL (0.55-1.02) 03/27/17 03:40 Est GFR (MDRD) Af Amer > 60 (>60) 03/27/17 03:40 Est GFR (MDRD) Non-Af > 60 (>60) 03/27/17 03:40 Glucose 104 mg/dL (65-99) H 03/27/17 03:40 Calcium 7.4 mg/dL (8.5-10.1) L 03/27/17 03:40 Corrected Calcium 9.2 mg/dL (8.5-10.1) 03/27/17 03:40 Iron 21 ug/dL (50-175) L 03/25/17 04:25 TIBC 158 ug/dL (250-450) L 03/25/17 04:25 Ferritin 195 ng/mL (8-252) 03/25/17 04:25 Total Bilirubin 0.30 mg/dL (0.2-1.0) 03/27/17 03:40 AST 9 Units/L (15-37) L 03/27/17 03:40 ALT 8 Units/L (12-78) L 03/27/17 03:40 Alkaline Phosphatase 61 Units/L (46-116) 03/27/17 03:40 Total Protein 4.8 g/dL (6.4-8.2) L 03/27/17 03:40 Albumin 1.8 g/dL (3.4-5.0) L 03/27/17 03:40 Globulin 3.0 g/dL (2.5-4.5) 03/27/17 03:40 Albumin/Globulin Ratio 0.6 Ratio (1.1-2.1) L 03/27/17 03:40 Specimen Type Clean catch urine 03/21/17 18:22 Urine Color Yellow (YELLOW) 03/21/17 18:22 Urine Appearance Clear (CLEAR) 03/21/17 18:22 Urine pH 7.0 (5.0 - 8.0) 03/21/17 18:22 Ur Specific [place] 1.010 (1.000-1.030) 03/21/17 18:22 Urine Protein 1+ (NEGATIVE) 03/21/17 18:22 Urine Glucose (UA) Negative (NEGATIVE) 03/21/17 18:22 Urine Ketones Negative (NEGATIVE) 03/21/17 18:22 Urine Occult Blood 3+ (NEGATIVE) 03/21/17 18:22 Urine Nitrite Negative (NEGATIVE) 03/21/17 18:22 Urine Bilirubin Negative (NEGATIVE) 03/21/17 18:22 Urine Urobilinogen 1+ (NORMAL) 03/21/17 18:22 Ur Leukocyte Esterase 1+ (NEGATIVE) 03/21/17 18:22 Urine RBC 4-5 /HPF (NEGATIVE) 03/21/17 18:22 Urine WBC 0-2 /HPF (NEGATIVE) 03/21/17 18:22 Ur Squamous Epith Cells Moderate /HPF (NEGATIVE) 03/21/17 18:22 Urine Bacteria Negative /HPF (NEGATIVE) 03/21/17 18:22 Urine Mucus Few /HPF (NEGATIVE) 03/21/17 18:22 Ur Culture Indicated? No/not indicated 03/21/17 18:22 Stool Description 400g bloody liquid 03/21/17 11:10 Stl Occult Blood (IFOB) Positive (NEGATIVE) A 03/21/17 11:10 H. pylori IgG Antibody Negative (NEGATIVE) 03/21/17 10:52 Blood Type O NEGATIVE 03/26/17 18:15 Antibody Screen Negative 03/26/17 18:15 Crossmatch See Detail 03/26/17 18:15 - Plan (1) GI (gastrointestinal bleed) Status: Acute Qualifiers: GI bleed type/associated pathology: unspecified gastrointestinal hemorrhage type Qualified Code(s): K92.2 - Gastrointestinal hemorrhage, unspecified Plan: TRANSFUSE 2 UNITS PRBC, PEPCID 20MG IV BID, PROTONIX DRIP, NORMAL SALINE AT 125ML/HR, MONITOR H&H, CONTINUE TO MONITOR
== END 2017-03-27 20:10 | disposition short-term general hospital (02) | DRG 379 ==
LOC: ER 10:20 → MED/SURG 14:35 → OBSVTOIN 03-22 08:00
PROVIDERS: ADMIT Internal Medicine; ATTEND Internal Medicine
PROC: 0DJ68ZZ Inspection of Stomach, Via Natural or Artificial Opening Endoscopic (ICD-10-PCS; principal; 2017-03-22 13:00)
PROC: 30233N1 Transfusion of Nonautologous Red Blood Cells into Peripheral Vein, Percutaneous Approach (ICD-10-PCS; 2017-03-23)
PROC: 30233N1 Transfusion of Nonautologous Red Blood Cells into Peripheral Vein, Percutaneous Approach (ICD-10-PCS; 2017-03-23)
DX: K92.2 Gastrointestinal hemorrhage, unspecified (principal); D64.89 Other specified anemias; R53.1 Weakness; E78.2 Mixed hyperlipidemia; K21.9 Gastro-esophageal reflux disease without esophagitis; I10 Essential (primary) hypertension; R19.5 Other fecal abnormalities; K29.00 Acute gastritis without bleeding; K44.9 Diaphragmatic hernia without obstruction or gangrene; K20.8 Other esophagitis
CPT/HCPCS: 36415; 36430; 74022; 74176; 80053; 81001; 82270; 82728; 83540; 83550; 84132; 85014; 85018; 85025; 85610; 85730; 86677; 86850; 86900; 86901; 86922; 96365; 96367; 96374; 99100; 99231; 99238; 99284; A4222; C9113; P9016; S0028; A4217; G0378; J1200; J2405; J3490; J7120

== ENCOUNTER → 2017-06-23 | Outpatient (CLI) | payer OTHER, MEDICAID ==
--- NOTE | 2017-06-24 16:02 | MRI ---
MR left shoulder without contrast Indication: Pain in the left shoulder Comparison: Prior MR from 12/25/2014 reviewed. Technique: Multiplanar multi sequence imaging through the left shoulder without contrast Findings: There is advanced atrophy of the supraspinatus, infraspinatus and subscapularis with fatty infiltration. Bone marrow signal is normal with advanced AC joint degenerative change and type 2 acro mion. Advanced glenohumeral degenerative changes subchondral cysts are noted, worse than on the prior . Neurovascular structures are normal. There is subacromial/subdeltoid bursitis, mild. Large joint ef fusion with osteochondral debris and synovitis noted. Chronic mass serration of the glenoid labrum no roxanne with full-thickness cartilage loss over the humeral head and glenoid. Intra-articular biceps is n ot convincingly seen, with tear present. Fluid is seen in the bicipital groove with irregular-appeari ng residual biceps tendon. There is tendinosis and partial-thickness tear of the superior fibers of t he subscapularis. Tendinosis of the supraspinatus infraspinatus are noted, with partial thickness tea ring of the articular surfaces most pronounced. The anterior fibers of the supraspinatus appear proba courtney completely torn at the myotendinous junction on coronal image 8 and sagittal image 8. Impression: 1. Advanced glenohumeral acromioclavicular degenerative change with joint effusion, synovitis and ost eochondral debris in the joint. 2. Global rotator cuff muscle belly atrophy with tendinosis of the cuff and articular surface tearing and fraying. Focal full-thickness tear of the supraspinatus midportion is suggested. The degree of a trophy is more advanced than would be expected given the tearing. Correlate clinically with chronic d isuse or inflammatory arthropathy. Neuropathic causes possible. Reported By:
== END ==
LOC: RAD 13:13
PROVIDERS: ATTEND Internal Medicine
DX: M25.512 Pain in left shoulder (principal); R93.7 Abnormal findings on diagnostic imaging of other parts of musculoskeletal system
CPT/HCPCS: 73221

== ENCOUNTER 2017-08-01 03:37 | Emergency (ER) | payer OTHER, MEDICAID ==
[2017-08-01 03:47] VITALS: BMI 34.0
[2017-08-01] MEDS ORDERED: NORFLEX INJ IM ONE (04:48)
[2017-08-01] MEDS ORDERED: TORADOL 60 MG VIAL IM ONE (04:48)
--- NOTE | 2017-08-01 04:49 | DR.GENAD ---
HPI - PCP Primary Care Physician: LAUREN - HPI Comment HPI Comment: PAIN WORSE TONIGHT. PAIN UNDER RIB CAGE IS OVER THE HEART AREA WITH SOB. THIS PAIN IS NEW. - Complaint/Symptoms Chief Complaint Doctors Comments: history as below. Chief Complaint:: "I'M HURTING IN MY BACK UNDER MY SHOULDER BLADE DOWN TO UNDER MY RIB CAGE FOR THE LAST 3 DAYS. IT HURTS WHEN I MOVE AND WHEN I BREATHE." DENIES ANY DYSURIA Self Treatment fo Chief Complaint: TRAMADOL AT HOME - Nurses notes reviewed Nurses Notes Review: Yes - Source History Provided: Patient - Mode of Arrival Mode of Arrival: Ambulatory - Timing Onset of Chief Complaint: 07/28/17 - Duration Duration: Constant Duration: Days - Severity Severity: Moderate PMH - PMH Past Medical History: Yes Past Medical History: Arthritis, Dyslipidemia, GERD, Hypertension Past Surgical History: Yes Surgical History: Appendectomy, Hysterectomy - Family History History of Family Medical Conditions: Yes Family Medical History: Cancer, Hypertension - Social History Does patient currently use any type of tobacco product: No Have you used tobacco products in the last 12 months: No Type of Tobacco Use: None Does any household member use tobacco: No Alcohol Use: None Do you use any recreational Drugs:: No Lives With: Family Lives Where: Home - infectious screening Have you traveled outside the country in the last 6 months?: No Isolation: Standard ROS - Review of Systems Constitutional: No Symptoms Reported. negative: Chills, Fever Eyes: No Symptoms Reported ENTM: No Symptoms Reported. negative: Ear Pain, Nose Discharge, Nose Congestion , Throat Pain Respiratoy: No Symptoms Reported, Short of Breath. negative: Productive Cough, Non-Productive Cough, Wheezing, Hemoptysis Cardiovascular: Chest Pain (CHEST WALL PAIN) Gastrointestinal/Abdominal: No Symptoms Reported Genitourinary: No Symptoms Reported Neurological: No Symptoms Reported Musculoskeletal: No Symptoms Reported, Back Pain, Rib(s) (LT LOWER RIB CAGE.), Shoulder (SHOULDER BLADE.), Knee Integumentary: No Symptoms Reported Hematologic/Lymphatic: No Symptoms Reported Endocrine: No Symptoms Reported All Other Systems: Reviewed and Negative PE - Vital Signs Vitals: Temperature 98.1 F Pulse Rate [Right] 71 Pulse Rate 74 Respiratory Rate 18 Blood Pressure [Right Arm] 117/72 Blood Pressure [Left Arm] 180/90 Blood Pressure 198/87 O2 Sat by Pulse Oximetry 98 - General Limitations: No Limitations General Appearance: Alert - Head Head Exam: Normal Inspection - Eyes Eye exam: Normal Appearance - ENT ENT Exam: Normal External Ear Exam External Ear Exam: Normal External Inspection TM/Canal Exam: Bilateral Normal Nose Exam: Normal Nose Exam Mouth Exam: Normal Inspection Throat Exam: Normal Inspection - Neck Neck Exam: Trachea Midline - Chest Chest Inspection: Symmetric Chest Wall Rise - Respiratory Respiratory Exam: Normal Lung Sounds Bilat, Chest Wall Tenderness Respiratory Exam: Bilateral Clear to Auscultation - Cardiovascular Cardiovascular Exam: Regular Rate, Normal Rhythm, Normal Heart Sounds - Abdominal Exam Abdominal Exam: Normal Bowel Sounds, Soft. negative: Tenderness - Extremities Extremities Exam: Normal Inspection - Back Back Exam: Normal Inspection, Paraspinal Tenderness - Neurologic Neurological Exam: Alert, Oriented X3 - Psychiatric Psychiatric Exam: Normal Affect, Normal Mood - Skin Skin Exam: Normal Color MDM - Additional Information Additional Information Obtained From: Family - Differential Diagnosis Differential Diagnosis: CHEST PAIN, BACK PAIN, KNEE PAIN, ARTHRITIS Course - Treatment Treatment: SEE ORDERS. IM MEDS FOR PAIN IN ED. - Reevaluation 1st: Improved - Education/Counseling Education/Counseling: Patient, Family, Education Educated On: Treatment, Diagnosis, Needs for Follow Up ROR - Labs Reviewed Laboratory Results Reviewed?: Yes Result Diagrams: 08/01/17 04:55 08/01/17 04:55 Laboratory: WBC 7.2 X10^3/uL (3.6-10.0) 08/01/17 04:55 RBC 4.23 X10^6/uL (3.5-5.4) 08/01/17 04:55 Hgb 11.4 g/dL (12.0-16.0) L 08/01/17 04:55 Hct 34.5 % (36.0-47.0) L 08/01/17 04:55 MCV 81.6 fL (80.0-100.0) 08/01/17 04:55 MCH 27.0 pg (27.0-34.0) 08/01/17 04:55 MCHC 33.1 g/dL (33.0-35.0) 08/01/17 04:55 RDW 16.9 % (11.6-16.5) H 08/01/17 04:55 Plt Count 301 X10^3/uL (150.0-450.0) 08/01/17 04:55 MPV 7.2 fL (7.4-11.0) L 08/01/17 04:55 Neut % (Auto) 60.8 % (42.0-75.0) 08/01/17 04:55 Lymph % (Auto) 22.6 % (21.0-51.0) 08/01/17 04:55 [place] % (Auto) 14.5 % (0.0-13.0) H 08/01/17 04:55 Eos % (Auto) 1.6 % (0.9-2.9) 08/01/17 04:55 Baso % (Auto) 0.5 % (0.2-1.0) 08/01/17 04:55 Neut # (Auto) 4.4 x10^3/uL (2.2-4.8) 08/01/17 04:55 Lymph # (Auto) 1.6 X10^3/uL (1.3-2.9) 08/01/17 04:55 [place] # (Auto) 1.1 x10^3/uL (0.3-0.8) H 08/01/17 04:55 Eos # (Auto) 0.1 x10^3/uL (0.0-0.2) 08/01/17 04:55 Baso # (Auto) 0.0 X10^3/uL (0.0-0.1) 08/01/17 04:55 Absolute Nucleated RBC 0.0 /100WBC 08/01/17 04:55 Sodium 134 mmol/L (136-145) L 08/01/17 04:55 Corrected Sodium 134 mmol/L (136-145) L 08/01/17 04:55 Potassium 4.3 mmol/L (3.5-5.1) 08/01/17 04:55 Chloride 99 mmol/L (98-107) 08/01/17 04:55 Carbon Dioxide 30.6 mmol/L (21-32) 08/01/17 04:55 BUN 7 mg/dL (7-18) 08/01/17 04:55 Creatinine 0.80 mg/dL (0.55-1.02) 08/01/17 04:55 Est GFR (MDRD) Af Amer > 60 (>60) 08/01/17 04:55 Est GFR (MDRD) Non-Af > 60 (>60) 08/01/17 04:55 Glucose 120 mg/dL (65-99) H 08/01/17 04:55 Calcium 9.2 mg/dL (8.5-10.1) 08/01/17 04:55 Corrected Calcium 9.9 mg/dL (8.5-10.1) 08/01/17 04:55 Total Bilirubin 0.30 mg/dL (0.2-1.0) 08/01/17 04:55 AST 11 Units/L (15-37) L 08/01/17 04:55 ALT 16 Units/L (12-78) 08/01/17 04:55 Alkaline Phosphatase 111 Units/L (46-116) 08/01/17 04:55 Creatine Kinase 48 Units/L (26-192) 08/01/17 04:55 CK-MB (CK-2) < 1.0 ng/mL (0-4.0) 08/01/17 04:55 CK/CKMB % Calc 2.1 % (<4) 08/01/17 04:55 Troponin I 0.02 ng/mL (0-1.5) 08/01/17 04:55 Total Protein 7.3 g/dL (6.4-8.2) 08/01/17 04:55 Albumin 3.1 g/dL (3.4-5.0) L 08/01/17 04:55 Globulin 4.2 g/dL (2.5-4.5) 08/01/17 04:55 Albumin/Globulin Ratio 0.7 Ratio (1.1-2.1) L 08/01/17 04:55 - Diagnosis Discharge Problem: Arthritis Chest pain Qualifiers: Chest pain type: intercostal pain Qualified Code(s): R07.82 - Intercostal pain - Discharge Plan Disposition: 01 HOME, SELF-CARE Condition: Stable - Follow ups/Referrals Follow ups/Referrals: NFD,None [Primary Care Provider] - 3 days - Instructions Instructions: Arthritis, [id number], Chest Pain Observation Additional Instructions: RETURN TO ED IF WORSE.
[2017-08-01 05:04] LABS: BASOPHILS % (AUTO) 0.5 % (0.2-1.0); EOSINOPHILS # (AUTO) 0.1 x10^3/uL (0.0-0.2); EOSINOPHILS % (AUTO) 1.6 % (0.9-2.9); HEMATOCRIT 34.5 % (36.0-47.0); HEMOGLOBIN 11.4 g/dL (12.0-16.0); LYMPHOCYTES # (AUTO) 1.6 X10^3/uL (1.3-2.9); LYMPHOCYTES % (AUTO) 22.6 % (21.0-51.0); MEAN CORPUSCULAR HGB CONC 33.1 g/dL (33.0-35.0); MEAN CORPUSCULAR VOLUME 81.6 fL (80.0-100.0); MEAN PLATELET VOLUME 7.2 fL (7.4-11.0); MONOCYTES # (AUTO) 1.1 x10^3/uL (0.3-0.8); MONOCYTES % (AUTO) 14.5 % (0.0-13.0); NEUTROPHILS # (AUTO) 4.4 x10^3/uL (2.2-4.8); NEUTROPHILS % (AUTO) 60.8 % (42.0-75.0); PLATELET COUNT 301 X10^3/uL (150.0-450.0); RED BLOOD COUNT 4.23 X10^6/uL (3.5-5.4); RED CELL DISTRIBUTION WIDTH 16.9 % (11.6-16.5); WHITE BLOOD COUNT 7.2 X10^3/uL (3.6-10.0)
--- NOTE | 2017-08-01 05:13 | RAD ---
Chest AP portable Indication: Abdominal pain. Findings: There is no pneumothorax or effusion. There is no consolidation. There is an enlarged heart . Impression: Cardiomegaly without other acute chest process. Reported By:
[2017-08-01 05:18] LABS: BLOOD UREA NITROGEN 7 mg/dL (7-18); CALCIUM 9.2 mg/dL (8.5-10.1); CARBON DIOXIDE 30.6 mmol/L (21-32); CHLORIDE 99 mmol/L (98-107); COR NA(FOR HYPERGLY) 134 mmol/L (136-145); SODIUM 134 mmol/L (136-145); TROPONIN I 0.02 ng/mL (0-1.5); eGFR BLACK RACES > 60 (>60); eGFR NON BLACK RACES > 60 (>60)
[2017-08-01 05:22] LABS: ALANINE AMINOTRANSFERASE 16 Units/L (12-78); ALBUMIN 3.1 g/dL (3.4-5.0); ALKALINE PHOSPHATASE 111 Units/L (46-116); ASPARTATE AMINO TRANSFERASE 11 Units/L (15-37); CKMB % 2.1 % (<4); COR CA(FOR HYPOALB) 9.9 mg/dL (8.5-10.1); CREATINE KINASE 48 Units/L (26-192); CREATINE KINASE MB < 1.0 ng/mL (0-4.0); TOTAL PROTEIN 7.3 g/dL (6.4-8.2)
[2017-08-01] MEDS ORDERED: TORADOL 60 MG VIAL ONE (05:58)
[2017-08-01] MEDS ORDERED: NORFLEX INJ ONE (05:59)
[2017-08-01 06:35] VITALS: BP 180/90
== END 2017-08-01 06:30 | disposition home or self-care (01) ==
LOC: ER 03:37
DX: R07.82 Intercostal pain (principal); M19.90 Unspecified osteoarthritis, unspecified site; R94.31 Abnormal electrocardiogram [ECG] [EKG]; I51.7 Cardiomegaly
CPT/HCPCS: 36415; 71045; 80053; 82550; 82553; 84484; 85025; 93005; 93010; 96372; 99283; 99284; J1885; J2360

== ENCOUNTER 2019-03-08 12:17 | Inpatient (IN) ==
[2019-03-08 15:33] VITALS: BMI 34.5
[2019-03-08 16:08] LABS: BASOPHILS % (AUTO) 0.2 % (0.2-1.0); EOSINOPHILS % (AUTO) 0.2 % (0.9-2.9); HEMATOCRIT 23.8 % (36.0-47.0); LYMPHOCYTES % (AUTO) 12.4 % (21.0-51.0); MEAN CORPUSCULAR HEMOGLOBIN 29.5 pg (27.0-34.0); MEAN CORPUSCULAR HGB CONC 33.4 g/dL (33.0-35.0); MEAN CORPUSCULAR VOLUME 88.2 fL (80.0-100.0); MEAN PLATELET VOLUME 7.2 fL (7.4-11.0); MONOCYTES # (AUTO) 0.6 x10^3/uL (0.3-0.8); NEUTROPHILS # (AUTO) 6.5 x10^3/uL (2.2-4.8); NEUTROPHILS % (AUTO) 80.2 % (42.0-75.0); PLATELET COUNT 238 X10^3/uL (150.0-450.0); WHITE BLOOD COUNT 8.1 X10^3/uL (3.6-10.0)
[2019-03-08 16:11] LABS: ALANINE AMINOTRANSFERASE 20 Units/L (12-78); ALBUMIN 2.9 g/dL (3.4-5.0); ALKALINE PHOSPHATASE 85 Units/L (46-116); ASPARTATE AMINO TRANSFERASE 12 Units/L (15-37); BLOOD UREA NITROGEN 17 mg/dL (7-18); CALCIUM 8.3 mg/dL (8.5-10.1); CARBON DIOXIDE 30.4 mmol/L (21-32); CHLORIDE 103 mmol/L (98-107); COR CA(FOR HYPOALB) 9.2 mg/dL (8.5-10.1); COR NA(FOR HYPERGLY) 136 mmol/L (136-145); CREATININE 0.86 mg/dL (0.55-1.02); SODIUM 136 mmol/L (136-145); TOTAL PROTEIN 5.7 g/dL (6.4-8.2); eGFR NON BLACK RACES > 60 (>60)
[2019-03-08] MEDS ORDERED: NS 500 ML IV 500 ML IV ONE (16:26)
[2019-03-08] MEDS ORDERED: BENADRYL INJ 50 MG VIAL IVP PRN (16:26)
[2019-03-08] MEDS ORDERED: TYLENOL 325 MG TAB PO PRN (16:26)
[2019-03-08] MEDS: NS 1000 ML 1,000 ML IV SCH (16:35)
[2019-03-08] MEDS: PROTONIX INJ 40 MG VIAL IVP SCH (21:30)
[2019-03-08] MEDS: PEPCID 20 MG IV PREMIX* 20 MG/50 ML BAG IV SCH (21:32)
[2019-03-09 05:20] LABS: BASOPHILS % (AUTO) 0.4 % (0.2-1.0); EOSINOPHILS # (AUTO) 0.1 x10^3/uL (0.0-0.2); HEMATOCRIT 21.7 % (36.0-47.0); HEMOGLOBIN 7.3 g/dL (12.0-16.0); LYMPHOCYTES % (AUTO) 27.8 % (21.0-51.0); MEAN CORPUSCULAR HEMOGLOBIN 29.2 pg (27.0-34.0); MEAN CORPUSCULAR HGB CONC 33.6 g/dL (33.0-35.0); MEAN CORPUSCULAR VOLUME 86.9 fL (80.0-100.0); MEAN PLATELET VOLUME 6.8 fL (7.4-11.0); MONOCYTES # (AUTO) 0.7 x10^3/uL (0.3-0.8); MONOCYTES % (AUTO) 9.6 % (0.0-13.0); NEUTROPHILS # (AUTO) 4.4 x10^3/uL (2.2-4.8); NEUTROPHILS % (AUTO) 61.2 % (42.0-75.0); PLATELET COUNT 232 X10^3/uL (150.0-450.0); WHITE BLOOD COUNT 7.3 X10^3/uL (3.6-10.0)
[2019-03-09 05:33] LABS: ALANINE AMINOTRANSFERASE 17 Units/L (12-78); ALBUMIN 2.6 g/dL (3.4-5.0); ALKALINE PHOSPHATASE 74 Units/L (46-116); ASPARTATE AMINO TRANSFERASE 14 Units/L (15-37); BLOOD UREA NITROGEN 11 mg/dL (7-18); CALCIUM 8.5 mg/dL (8.5-10.1); CARBON DIOXIDE 26.7 mmol/L (21-32); CHLORIDE 105 mmol/L (98-107); COR CA(FOR HYPOALB) 9.6 mg/dL (8.5-10.1); CREATININE 0.76 mg/dL (0.55-1.02); SODIUM 137 mmol/L (136-145); TOTAL PROTEIN 5.2 g/dL (6.4-8.2); eGFR NON BLACK RACES > 60 (>60)
[2019-03-09 06:02] LABS: PLATELET MORPHOLOGY COMMENT NORMAL (NORMAL)
[2019-03-09 06:03] LABS: ANISOCYTOSIS SLIGHT; HYPOCHROMASIA SLIGHT
[2019-03-09] MEDS: NS 1000 ML 1,000 ML IV SCH ×2 (09:21→21:20)
[2019-03-09] MEDS: PEPCID 20 MG IV PREMIX* 20 MG/50 ML BAG IV SCH ×2 (09:21→21:20)
[2019-03-09] MEDS: PROTONIX INJ 40 MG VIAL IVP SCH ×2 (09:21→21:20)
--- NOTE | 2019-03-09 10:59 | DR.UPDATE ---
H&P Update History and Physical Update: History and Physical reviewed and patient examined. Changes noted: Yes with the following: WAS A DIRECT ADMISSION FROM THE OFFICE DUE TO COMPLAINTS OF WEAKNESS, SHORTNESS OF BREATH, AND BLOOD IN THE STOOL. SHE IS CURRENTLY ON PLAVIX AND ASPIRIN. WE ADMITTED PATIENT FOR FURTHER EVALUATION AND TREATMENT. ON ADMISSION, WE STARTED NORMAL SALINE AT 75ML/HR, IV PEPCID, IV PROTONIX. WE WILL TYPE AND CROSSMATCH AND TRANSFUSE TWO UNITS OF PRBC. OTHERWISE, WE WILL FOLLOW UP WITH AM LABS AND CONTINUE TO MONITOR. Prescription drug monitoring program results: PDMP was not reviewed H&P Reviewed: Yes Patient was examined?: Yes
[2019-03-09] MEDS ORDERED: ZOFRAN TAB 4 MG PO PRN (11:04)
[2019-03-09] MEDS: ROBITUSSIN DM PO PRN (11:19)
[2019-03-09] MEDS: TUSSIONEX PENNKINETIC SUSP PO PRN (11:19)
[2019-03-09] MEDS: LIPITOR TAB 40 MG PO SCH ×2 (15:12→21:21)
[2019-03-09] MEDS: SINGULAIR TAB 10 MG PO SCH (15:12)
[2019-03-09] MEDS: LINZESS PO SCH (15:12)
[2019-03-09] MEDS: TOPROL XL PO SCH ×2 (15:13→21:20)
[2019-03-09 16:55] LABS: HEMATOCRIT 25.4 % (36.0-47.0); HEMOGLOBIN 8.6 g/dL (12.0-16.0)
[2019-03-09] MEDS: VASOTEC TAB 20 MG PO SCH (21:20)
[2019-03-10 06:40] LABS: BASOPHILS # (AUTO) 0.1 X10^3/uL (0.0-0.1); BASOPHILS % (AUTO) 0.9 % (0.2-1.0); EOSINOPHILS # (AUTO) 0.2 x10^3/uL (0.0-0.2); EOSINOPHILS % (AUTO) 2.3 % (0.9-2.9); HEMATOCRIT 24.8 % (36.0-47.0); HEMOGLOBIN 8.4 g/dL (12.0-16.0); LYMPHOCYTES # (AUTO) 2.3 X10^3/uL (1.3-2.9); LYMPHOCYTES % (AUTO) 29.4 % (21.0-51.0); MEAN CORPUSCULAR HEMOGLOBIN 29.8 pg (27.0-34.0); MEAN CORPUSCULAR HGB CONC 33.9 g/dL (33.0-35.0); MEAN PLATELET VOLUME 6.5 fL (7.4-11.0); MONOCYTES # (AUTO) 0.9 x10^3/uL (0.3-0.8); MONOCYTES % (AUTO) 11.8 % (0.0-13.0); NEUTROPHILS # (AUTO) 4.3 x10^3/uL (2.2-4.8); NEUTROPHILS % (AUTO) 55.6 % (42.0-75.0); PLATELET COUNT 235 X10^3/uL (150.0-450.0); RED BLOOD COUNT 2.81 X10^6/uL (3.5-5.4); RED CELL DISTRIBUTION WIDTH 18.2 % (11.6-16.5); WHITE BLOOD COUNT 7.7 X10^3/uL (3.6-10.0)
[2019-03-10 06:55] LABS: ALANINE AMINOTRANSFERASE 15 Units/L (12-78); ALBUMIN 2.4 g/dL (3.4-5.0); ALKALINE PHOSPHATASE 73 Units/L (46-116); ASPARTATE AMINO TRANSFERASE 11 Units/L (15-37); BLOOD UREA NITROGEN 6 mg/dL (7-18); CALCIUM 8.3 mg/dL (8.5-10.1); CARBON DIOXIDE 28.6 mmol/L (21-32); CHLORIDE 106 mmol/L (98-107); COR CA(FOR HYPOALB) 9.6 mg/dL (8.5-10.1); CREATININE 0.78 mg/dL (0.55-1.02); SODIUM 138 mmol/L (136-145); eGFR NON BLACK RACES > 60 (>60)
[2019-03-10] MEDS ORDERED: MILK OF MAGNESIA PO PRN (09:00)
[2019-03-10] MEDS: PEPCID 20 MG IV PREMIX* 20 MG/50 ML BAG IV SCH ×2 (10:25→21:36)
[2019-03-10] MEDS: COLACE CAP 100 MG PO SCH ×2 (10:26→21:36)
[2019-03-10] MEDS: SINGULAIR TAB 10 MG PO SCH (10:26)
[2019-03-10] MEDS: LINZESS PO SCH (10:26)
[2019-03-10] MEDS: VASOTEC TAB 20 MG PO SCH ×2 (10:27→21:36)
[2019-03-10] MEDS: TOPROL XL PO SCH ×2 (10:27→21:36)
[2019-03-10] MEDS: PROTONIX INJ 40 MG VIAL IVP SCH ×2 (10:27→21:36)
[2019-03-10] MEDS: TUSSIONEX PENNKINETIC SUSP PO PRN (17:00)
[2019-03-10] MEDS: LIPITOR TAB 40 MG PO SCH (21:36)
[2019-03-11] MEDS: NS 1000 ML 1,000 ML IV SCH ×4 (01:00→21:30)
[2019-03-11 06:35] LABS: BASOPHILS # (AUTO) 0.1 X10^3/uL (0.0-0.1); BASOPHILS % (AUTO) 0.7 % (0.2-1.0); EOSINOPHILS # (AUTO) 0.2 x10^3/uL (0.0-0.2); EOSINOPHILS % (AUTO) 2.1 % (0.9-2.9); HEMOGLOBIN 8.3 g/dL (12.0-16.0); LYMPHOCYTES # (AUTO) 2.1 X10^3/uL (1.3-2.9); LYMPHOCYTES % (AUTO) 29.5 % (21.0-51.0); MEAN CORPUSCULAR HEMOGLOBIN 29.6 pg (27.0-34.0); MEAN CORPUSCULAR HGB CONC 33.3 g/dL (33.0-35.0); MEAN CORPUSCULAR VOLUME 88.8 fL (80.0-100.0); MEAN PLATELET VOLUME 6.6 fL (7.4-11.0); MONOCYTES # (AUTO) 1.1 x10^3/uL (0.3-0.8); MONOCYTES % (AUTO) 14.8 % (0.0-13.0); NEUTROPHILS # (AUTO) 3.8 x10^3/uL (2.2-4.8); NEUTROPHILS % (AUTO) 52.9 % (42.0-75.0); PLATELET COUNT 245 X10^3/uL (150.0-450.0); RED BLOOD COUNT 2.82 X10^6/uL (3.5-5.4); RED CELL DISTRIBUTION WIDTH 18.3 % (11.6-16.5); WHITE BLOOD COUNT 7.2 X10^3/uL (3.6-10.0)
[2019-03-11 07:02] LABS: ALANINE AMINOTRANSFERASE 13 Units/L (12-78); ALBUMIN 2.3 g/dL (3.4-5.0); ALKALINE PHOSPHATASE 84 Units/L (46-116); ASPARTATE AMINO TRANSFERASE 10 Units/L (15-37); BLOOD UREA NITROGEN 5 mg/dL (7-18); CARBON DIOXIDE 27.8 mmol/L (21-32); CHLORIDE 105 mmol/L (98-107); COR CA(FOR HYPOALB) 9.4 mg/dL (8.5-10.1); CREATININE 0.79 mg/dL (0.55-1.02); SODIUM 137 mmol/L (136-145); eGFR NON BLACK RACES > 60 (>60)
[2019-03-11] MEDS: LINZESS PO SCH (10:11)
[2019-03-11] MEDS: SINGULAIR TAB 10 MG PO SCH (10:11)
[2019-03-11] MEDS: COLACE CAP 100 MG PO SCH ×2 (10:11→21:16)
[2019-03-11] MEDS: ROBITUSSIN DM PO PRN (10:11)
[2019-03-11] MEDS: PROTONIX INJ 40 MG VIAL IVP SCH ×2 (10:11→21:17)
[2019-03-11] MEDS: TOPROL XL PO SCH ×2 (10:12→21:15)
[2019-03-11] MEDS: PEPCID 20 MG IV PREMIX* 20 MG/50 ML BAG IV SCH ×2 (10:12→21:17)
[2019-03-11] MEDS: VASOTEC TAB 20 MG PO SCH ×2 (10:12→21:17)
--- NOTE | 2019-03-11 13:24 | PCM.PROG ---
Progress Note - Progress Note for Day of Date of Exam: 03/09/19 - Subjective Subjective: WAS ADMITTED FOR A GI BLEED AND ANEMIA. TODAY, SHE IS ALERT AND ORIENTED, LYING IN BED ON MORNING ROUNDS. SHE REPORTS MILD ABDOMINAL PAIN TODAY WELL WEAKNESS. SHE REPORTS DARK COLORED STOOLS. HER VITALS THIS MORNING ARE: 98.6-71-18-97%-161/70. LABS WERE OBTAINED. ABNORMAL LAB VALUES INCLUDE THE FOLLOWING: RBC 2.50, HGB 7.3, HCT 21.7, AST 14, TOTAL PROTEIN 5.2, ALBUMIN 2.6. SHE IS CURRENTLY RECEIVING NORMAL SALINE AT 75ML/HR, IV PEPCID, AND IV PROTONIX. TODAY, WE WILL TRANSFUSE TWO UNITS OF PACKED RED BLOOD CELLS AND RESUME HER HOME MEDICATIONS WITH THE EXCEPTION OF HER ASPIRIN AND PLAVIX. OTHERWISE, WE WILL FOLLOW UP WITH AM LABS AND CONTINUE TO MONITOR. - Past Medical Family Social History Past Med/Fam/Surg Hx: No changes since H&P Allergies: Allergies codeine Adverse Reaction (Verified 07/14/18 10:20) - Review of Systems ROS: No change since H&P - Vital Signs and I&O's Vital Signs: Temperature 98.3 F Pulse Rate [Right Brachial] 68 Respiratory Rate 20 Blood Pressure [Right Arm] 150/67 Blood Pressure [Left Arm] 162/70 Blood Pressure 162/70 O2 Sat by Pulse Oximetry 96 Intake and Output: Intake & Output 03/09/19 03/10/19 03/11/19 03/12/19 11:59 11:59 11:59 11:59 Intake Total 1859 2504 / 2504 3046 / 3046 Balance 1859 2504 / 2504 3046 / 3046 - Physical Exam Oriented: Normal Eyes: Normal Ear: Normal Nose: Normal Throat: Normal Respiratory: Generalized, Diminished Cardiovascular: Normal : Normal Auscultation: Bowel Sounds: Normal Palpation: Normal Tenderness: Diffuse, Mild Skin: Normal Musculoskeletal: Normal Psychiatric: Normal Mood Description: Calm Affect: Normal Speech Pattern: Clear, Appropriate - Laboratory and Diagnostics Result Diagrams: 03/11/19 06:18 03/11/19 06:18 Labs: Laboratory WBC 7.2 X10^3/uL (3.6-10.0) 03/11/19 06:18 RBC 2.82 X10^6/uL (3.5-5.4) L 03/11/19 06:18 Hgb 8.3 g/dL (12.0-16.0) L 03/11/19 06:18 Hct 25.0 % (36.0-47.0) L 03/11/19 06:18 MCV 88.8 fL (80.0-100.0) 03/11/19 06:18 MCH 29.6 pg (27.0-34.0) 03/11/19 06:18 MCHC 33.3 g/dL (33.0-35.0) 03/11/19 06:18 RDW 18.3 % (11.6-16.5) H 03/11/19 06:18 Plt Count 245 X10^3/uL (150.0-450.0) 03/11/19 06:18 Plt Count Comment Adequate (ADEQUATE) 03/09/19 04:46 MPV 6.6 fL (7.4-11.0) L 03/11/19 06:18 Neut % (Auto) 52.9 % (42.0-75.0) 03/11/19 06:18 Lymph % (Auto) 29.5 % (21.0-51.0) 03/11/19 06:18 [place] % (Auto) 14.8 % (0.0-13.0) H 03/11/19 06:18 Eos % (Auto) 2.1 % (0.9-2.9) 03/11/19 06:18 Baso % (Auto) 0.7 % (0.2-1.0) 03/11/19 06:18 Neut # (Auto) 3.8 x10^3/uL (2.2-4.8) 03/11/19 06:18 Lymph # (Auto) 2.1 X10^3/uL (1.3-2.9) 03/11/19 06:18 [place] # (Auto) 1.1 x10^3/uL (0.3-0.8) H 03/11/19 06:18 Eos # (Auto) 0.2 x10^3/uL (0.0-0.2) 03/11/19 06:18 Baso # (Auto) 0.1 X10^3/uL (0.0-0.1) 03/11/19 06:18 Absolute Nucleated RBC 0.3 /100WBC 03/11/19 06:18 Plt Morphology Comment Normal (NORMAL) 03/09/19 04:46 RBC Morphology Abnormal (NORMAL) A 03/09/19 04:46 Hypochromasia Slight A 03/09/19 04:46 Anisocytosis Slight A 03/09/19 04:46 Sodium 137 mmol/L (136-145) 03/11/19 06:18 Corrected Sodium TNP 03/11/19 06:18 Potassium 4.3 mmol/L (3.5-5.1) 03/11/19 06:18 Chloride 105 mmol/L (98-107) 03/11/19 06:18 Carbon Dioxide 27.8 mmol/L (21-32) 03/11/19 06:18 BUN 5 mg/dL (7-18) L 03/11/19 06:18 Creatinine 0.79 mg/dL (0.55-1.02) 03/11/19 06:18 Est GFR (MDRD) Af Amer > 60 (>60) 03/11/19 06:18 Est GFR (MDRD) Non-Af > 60 (>60) 03/11/19 06:18 Glucose 89 mg/dL (65-99) 03/11/19 06:18 Calcium 8.0 mg/dL (8.5-10.1) L 03/11/19 06:18 Corrected Calcium 9.4 mg/dL (8.5-10.1) 03/11/19 06:18 Total Bilirubin 0.40 mg/dL (0.2-1.0) 03/11/19 06:18 AST 10 Units/L (15-37) L 03/11/19 06:18 ALT 13 Units/L (12-78) 03/11/19 06:18 Alkaline Phosphatase 84 Units/L (46-116) 03/11/19 06:18 Total Protein 5.0 g/dL (6.4-8.2) L 03/11/19 06:18 Albumin 2.3 g/dL (3.4-5.0) L 03/11/19 06:18 Globulin 2.7 g/dL (2.5-4.5) 03/11/19 06:18 Albumin/Globulin Ratio 0.9 Ratio (1.1-2.1) L 03/11/19 06:18 Blood Type O NEGATIVE 03/08/19 15:40 Antibody Screen Negative 03/08/19 15:40 Crossmatch See Detail 03/08/19 15:40 - Plan (1) GI (gastrointestinal bleed) Status: Acute Qualifiers: GI bleed type/associated pathology: unspecified gastrointestinal hemorrhage type Qualified Code(s): K92.2 - Gastrointestinal hemorrhage, unspecified Plan: TRANSFUSE 2 UNITS PRBC, IV PEPCID, IV PROTONIX, CONTINUE TO MONITOR (2) Anemia Status: Acute Qualifiers: Anemia type: iron deficiency Iron deficiency anemia type: chronic blood loss Qualified Code(s): D50.0 - Iron deficiency anemia secondary to blood loss (chronic)
--- NOTE | 2019-03-11 19:59 | PCM.PROG ---
Progress Note - Progress Note for Day of Date of Exam: 03/10/19 - Subjective Subjective: WAS ADMITTED FOR A GI BLEED AND ANEMIA. SHE RECEIVED ONE UNIT OF PACKED RED BLOOD CELLS YESTERDAY AND WILL RECEIVE ANOTHER ONE TODAY. TODAY, SHE IS ALERT AND ORIENTED, LYING IN BED ON MORNING ROUNDS. SHE CONTINUES TO REPORT MILD ABDOMINAL PAIN TODAY WELL WEAKNESS. HER VITALS THIS MORNING ARE: 98.7-78-19-97%-194/87. LABS WERE OBTAINED. ABNORMAL LAB VALUES INCLUDE THE FOLLOWING: RBC 2.81, HGB 8.4, HCT 24.8, BUN 6, CALCIUM 8.3, AST 11, TOTAL PROTEIN 5.0, ALBUMIN 2.4. SHE IS CURRENTLY RECEIVING NORMAL SALINE AT 75ML/HR, IV PEPCID, AND IV PROTONIX. TODAY, WE WILL TRANSFUSE ONE ADDITIONAL UNIT OF PACKED RED BLOOD CELLS AND START A BOWEL REGIMEN. OTHERWISE, WE WILL FOLLOW UP WITH AM LABS AND CONTINUE TO MONITOR. - Past Medical Family Social History Past Med/Fam/Surg Hx: No changes since H&P Allergies: Allergies codeine Adverse Reaction (Verified 07/14/18 10:20) - Review of Systems ROS: No change since H&P - Vital Signs and I&O's Vital Signs: Temperature 98.5 F Pulse Rate [Right Brachial] 70 Respiratory Rate 18 Blood Pressure [Right Arm] 170/79 Blood Pressure [Left Arm] 162/70 Blood Pressure 162/70 O2 Sat by Pulse Oximetry 98 Intake and Output: Intake & Output 03/09/19 03/10/19 03/11/19 03/12/19 11:59 11:59 11:59 11:59 Intake Total 0 / 1860 2504 / 2504 3046 / 3046 1460 / 1460 Balance 1860 / 1860 2504 / 2504 3046 / 3046 1460 / 1460 - Physical Exam Oriented: Normal Eyes: Normal Ear: Normal Nose: Normal Throat: Normal Respiratory: Generalized, Diminished Cardiovascular: Normal : Normal Auscultation: Bowel Sounds: Normal Palpation: Normal Tenderness: Diffuse, Mild Skin: Normal Musculoskeletal: Normal Psychiatric: Normal Mood Description: Calm Affect: Normal Speech Pattern: Clear, Appropriate - Laboratory and Diagnostics Result Diagrams: 03/11/19 06:18 03/11/19 06:18 Labs: Laboratory WBC 7.2 X10^3/uL (3.6-10.0) 03/11/19 06:18 RBC 2.82 X10^6/uL (3.5-5.4) L 03/11/19 06:18 Hgb 8.3 g/dL (12.0-16.0) L 03/11/19 06:18 Hct 25.0 % (36.0-47.0) L 03/11/19 06:18 MCV 88.8 fL (80.0-100.0) 03/11/19 06:18 MCH 29.6 pg (27.0-34.0) 03/11/19 06:18 MCHC 33.3 g/dL (33.0-35.0) 03/11/19 06:18 RDW 18.3 % (11.6-16.5) H 03/11/19 06:18 Plt Count 245 X10^3/uL (150.0-450.0) 03/11/19 06:18 Plt Count Comment Adequate (ADEQUATE) 03/09/19 04:46 MPV 6.6 fL (7.4-11.0) L 03/11/19 06:18 Neut % (Auto) 52.9 % (42.0-75.0) 03/11/19 06:18 Lymph % (Auto) 29.5 % (21.0-51.0) 03/11/19 06:18 Ray % (Auto) 14.8 % (0.0-13.0) H 03/11/19 06:18 Eos % (Auto) 2.1 % (0.9-2.9) 03/11/19 06:18 Baso % (Auto) 0.7 % (0.2-1.0) 03/11/19 06:18 Neut # (Auto) 3.8 x10^3/uL (2.2-4.8) 03/11/19 06:18 Lymph # (Auto) 2.1 X10^3/uL (1.3-2.9) 03/11/19 06:18 Ray # (Auto) 1.1 x10^3/uL (0.3-0.8) H 03/11/19 06:18 Eos # (Auto) 0.2 x10^3/uL (0.0-0.2) 03/11/19 06:18 Baso # (Auto) 0.1 X10^3/uL (0.0-0.1) 03/11/19 06:18 Absolute Nucleated RBC 0.3 /100WBC 03/11/19 06:18 Plt Morphology Comment Normal (NORMAL) 03/09/19 04:46 RBC Morphology Abnormal (NORMAL) A 03/09/19 04:46 Hypochromasia Slight A 03/09/19 04:46 Anisocytosis Slight A 03/09/19 04:46 Sodium 137 mmol/L (136-145) 03/11/19 06:18 Corrected Sodium TNP 03/11/19 06:18 Potassium 4.3 mmol/L (3.5-5.1) 03/11/19 06:18 Chloride 105 mmol/L (98-107) 03/11/19 06:18 Carbon Dioxide 27.8 mmol/L (21-32) 03/11/19 06:18 BUN 5 mg/dL (7-18) L 03/11/19 06:18 Creatinine 0.79 mg/dL (0.55-1.02) 03/11/19 06:18 Est GFR (MDRD) Af Amer > 60 (>60) 03/11/19 06:18 Est GFR (MDRD) Non-Af > 60 (>60) 03/11/19 06:18 Glucose 89 mg/dL (65-99) 03/11/19 06:18 Calcium 8.0 mg/dL (8.5-10.1) L 03/11/19 06:18 Corrected Calcium 9.4 mg/dL (8.5-10.1) 03/11/19 06:18 Total Bilirubin 0.40 mg/dL (0.2-1.0) 03/11/19 06:18 AST 10 Units/L (15-37) L 03/11/19 06:18 ALT 13 Units/L (12-78) 03/11/19 06:18 Alkaline Phosphatase 84 Units/L (46-116) 03/11/19 06:18 Total Protein 5.0 g/dL (6.4-8.2) L 03/11/19 06:18 Albumin 2.3 g/dL (3.4-5.0) L 03/11/19 06:18 Globulin 2.7 g/dL (2.5-4.5) 03/11/19 06:18 Albumin/Globulin Ratio 0.9 Ratio (1.1-2.1) L 03/11/19 06:18 Blood Type O NEGATIVE 03/08/19 15:40 Antibody Screen Negative 03/08/19 15:40 Crossmatch See Detail 03/08/19 15:40 - Plan (1) GI (gastrointestinal bleed) Status: Acute Qualifiers: GI bleed type/associated pathology: unspecified gastrointestinal hemorrhage type Qualified Code(s): K92.2 - Gastrointestinal hemorrhage, unspecified Plan: TRANSFUSE 1 UNITS PRBC, IV PEPCID, IV PROTONIX, CONTINUE TO MONITOR (2) Anemia Status: Acute Qualifiers: Anemia type: iron deficiency Iron deficiency anemia type: chronic blood loss Qualified Code(s): D50.0 - Iron deficiency anemia secondary to blood loss (chronic)
[2019-03-11] MEDS: TUSSIONEX PENNKINETIC SUSP PO PRN (21:14)
[2019-03-11] MEDS: LIPITOR TAB 40 MG PO SCH (21:16)
[2019-03-12] MEDS: NS 1000 ML 1,000 ML IV SCH (05:31)
[2019-03-12 06:31] LABS: BASOPHILS % (AUTO) 0.5 % (0.2-1.0); EOSINOPHILS # (AUTO) 0.2 x10^3/uL (0.0-0.2); EOSINOPHILS % (AUTO) 2.2 % (0.9-2.9); HEMATOCRIT 28.2 % (36.0-47.0); HEMOGLOBIN 9.5 g/dL (12.0-16.0); LYMPHOCYTES # (AUTO) 2.2 X10^3/uL (1.3-2.9); LYMPHOCYTES % (AUTO) 26.9 % (21.0-51.0); MEAN CORPUSCULAR HGB CONC 33.6 g/dL (33.0-35.0); MEAN CORPUSCULAR VOLUME 89.2 fL (80.0-100.0); MEAN PLATELET VOLUME 6.7 fL (7.4-11.0); MONOCYTES # (AUTO) 1.2 x10^3/uL (0.3-0.8); MONOCYTES % (AUTO) 14.8 % (0.0-13.0); NEUTROPHILS # (AUTO) 4.5 x10^3/uL (2.2-4.8); NEUTROPHILS % (AUTO) 55.6 % (42.0-75.0); PLATELET COUNT 280 X10^3/uL (150.0-450.0); RED BLOOD COUNT 3.16 X10^6/uL (3.5-5.4); RED CELL DISTRIBUTION WIDTH 18.7 % (11.6-16.5); WHITE BLOOD COUNT 8.2 X10^3/uL (3.6-10.0)
[2019-03-12 06:45] LABS: ALANINE AMINOTRANSFERASE 18 Units/L (12-78); ALBUMIN 2.8 g/dL (3.4-5.0); ALKALINE PHOSPHATASE 103 Units/L (46-116); ASPARTATE AMINO TRANSFERASE 10 Units/L (15-37); BLOOD UREA NITROGEN 3 mg/dL (7-18); CALCIUM 8.3 mg/dL (8.5-10.1); CARBON DIOXIDE 28.6 mmol/L (21-32); CHLORIDE 101 mmol/L (98-107); COR CA(FOR HYPOALB) 9.3 mg/dL (8.5-10.1); CREATININE 0.78 mg/dL (0.55-1.02); SODIUM 135 mmol/L (136-145); eGFR NON BLACK RACES > 60 (>60)
[2019-03-12] MEDS: TOPROL XL PO SCH (09:12)
[2019-03-12] MEDS: PEPCID 20 MG IV PREMIX* 20 MG/50 ML BAG IV SCH (09:12)
[2019-03-12] MEDS: PROTONIX INJ 40 MG VIAL IVP SCH (09:12)
[2019-03-12] MEDS: COLACE CAP 100 MG PO SCH (09:12)
[2019-03-12] MEDS: SINGULAIR TAB 10 MG PO SCH (09:12)
[2019-03-12] MEDS: LINZESS PO SCH (09:13)
[2019-03-12] MEDS: VASOTEC TAB 20 MG PO SCH (09:13)
[2019-03-12 10:20] VITALS: BP 128/60
--- NOTE | 2019-03-12 10:24 | PCM.PROG ---
Progress Note - Progress Note for Day of Date of Exam: 03/11/19 - Subjective Subjective: WAS ADMITTED FOR A GI BLEED AND ANEMIA. SHE RECEIVED ONE UNIT OF PACKED RED BLOOD CELLS ON 03/09/2019. TODAY, SHE IS ALERT AND ORIENTED, LYING IN BED ON MORNING ROUNDS. SHE CONTINUES TO REPORT MILD ABDOMINAL PAIN TODAY WELL WEAKNESS. HER VITALS THIS MORNING ARE: 98.3-68-20-96%-150/67. LABS WERE OBTAINED. ABNORMAL LAB VALUES INCLUDE THE FOLLOWING: RBC 2.82, HGB 8.3, HCT 25.0, BUN 5, CALCIUM 8.0, AST 10, TOTAL PROTEIN 5.0, ALBUMIN 2.3. SHE IS CURRENTLY RECEIVING NORMAL SALINE AT 75ML/HR, IV PEPCID,MIRALAX, MILK OF MAGNESIA, COLACE, AND IV PROTONIX. WE WILL CONTINUE WITH CURRENT PLAN OF CARE TODAY. OTHERWISE, WE WILL FOLLOW UP WITH AM LABS AND CONTINUE TO MONITOR. - Past Medical Family Social History Past Med/Fam/Surg Hx: No changes since H&P Allergies: Allergies codeine Adverse Reaction (Verified 07/14/18 10:20) - Review of Systems ROS: No change since H&P - Vital Signs and I&O's Vital Signs: Temperature 98.5 F Pulse Rate [Right Brachial] 66 Respiratory Rate 18 Blood Pressure [Right Arm] 128/60 Blood Pressure [Left Arm] 162/70 Blood Pressure 162/70 O2 Sat by Pulse Oximetry 97 Intake and Output: Intake & Output 03/09/19 03/10/19 03/11/19 03/12/19 11:59 11:59 11:59 11:59 Intake Total 1860 / 1860 2504 / 2504 3046 / 3046 2990 / 2990 Balance 1860 / 1860 2504 / 2504 3046 / 3046 2990 / 2990 - Physical Exam Oriented: Normal Eyes: Normal Ear: Normal Nose: Normal Throat: Normal Respiratory: Generalized, Diminished Cardiovascular: Normal : Normal Auscultation: Bowel Sounds: Normal Tenderness: Diffuse, Mild Skin: Normal Musculoskeletal: Normal Psychiatric: Normal Mood Description: Calm Affect: Normal Speech Pattern: Clear, Appropriate - Laboratory and Diagnostics Result Diagrams: 03/12/19 06:05 03/12/19 06:05 Labs: Laboratory WBC 8.2 X10^3/uL (3.6-10.0) 03/12/19 06:05 RBC 3.16 X10^6/uL (3.5-5.4) L 03/12/19 06:05 Hgb 9.5 g/dL (12.0-16.0) L 03/12/19 06:05 Hct 28.2 % (36.0-47.0) L 03/12/19 06:05 MCV 89.2 fL (80.0-100.0) 03/12/19 06:05 MCH 30.0 pg (27.0-34.0) 03/12/19 06:05 MCHC 33.6 g/dL (33.0-35.0) 03/12/19 06:05 RDW 18.7 % (11.6-16.5) H 03/12/19 06:05 Plt Count 280 X10^3/uL (150.0-450.0) 03/12/19 06:05 Plt Count Comment Adequate (ADEQUATE) 03/09/19 04:46 MPV 6.7 fL (7.4-11.0) L 03/12/19 06:05 Neut % (Auto) 55.6 % (42.0-75.0) 03/12/19 06:05 Lymph % (Auto) 26.9 % (21.0-51.0) 03/12/19 06:05 Charles % (Auto) 14.8 % (0.0-13.0) H 03/12/19 06:05 Eos % (Auto) 2.2 % (0.9-2.9) 03/12/19 06:05 Baso % (Auto) 0.5 % (0.2-1.0) 03/12/19 06:05 Neut # (Auto) 4.5 x10^3/uL (2.2-4.8) 03/12/19 06:05 Lymph # (Auto) 2.2 X10^3/uL (1.3-2.9) 03/12/19 06:05 [place] # (Auto) 1.2 x10^3/uL (0.3-0.8) H 03/12/19 06:05 Eos # (Auto) 0.2 x10^3/uL (0.0-0.2) 03/12/19 06:05 Baso # (Auto) 0.0 X10^3/uL (0.0-0.1) 03/12/19 06:05 Absolute Nucleated RBC 0.1 /100WBC 03/12/19 06:05 Plt Morphology Comment Normal (NORMAL) 03/09/19 04:46 RBC Morphology Abnormal (NORMAL) A 03/09/19 04:46 Hypochromasia Slight A 03/09/19 04:46 Anisocytosis Slight A 03/09/19 04:46 Sodium 135 mmol/L (136-145) L 03/12/19 06:05 Corrected Sodium TNP 03/12/19 06:05 Potassium 4.3 mmol/L (3.5-5.1) 03/12/19 06:05 Chloride 101 mmol/L (98-107) 03/12/19 06:05 Carbon Dioxide 28.6 mmol/L (21-32) 03/12/19 06:05 BUN 3 mg/dL (7-18) L 03/12/19 06:05 Creatinine 0.78 mg/dL (0.55-1.02) 03/12/19 06:05 Est GFR (MDRD) Af Amer > 60 (>60) 03/12/19 06:05 Est GFR (MDRD) Non-Af > 60 (>60) 03/12/19 06:05 Glucose 90 mg/dL (65-99) 03/12/19 06:05 Calcium 8.3 mg/dL (8.5-10.1) L 03/12/19 06:05 Corrected Calcium 9.3 mg/dL (8.5-10.1) 03/12/19 06:05 Total Bilirubin 0.30 mg/dL (0.2-1.0) 03/12/19 06:05 AST 10 Units/L (15-37) L 03/12/19 06:05 ALT 18 Units/L (12-78) 03/12/19 06:05 Alkaline Phosphatase 103 Units/L (46-116) 03/12/19 06:05 Total Protein 6.0 g/dL (6.4-8.2) L 03/12/19 06:05 Albumin 2.8 g/dL (3.4-5.0) L 03/12/19 06:05 Globulin 3.2 g/dL (2.5-4.5) 03/12/19 06:05 Albumin/Globulin Ratio 0.9 Ratio (1.1-2.1) L 03/12/19 06:05 Blood Type O NEGATIVE 03/08/19 15:40 Antibody Screen Negative 03/08/19 15:40 Crossmatch See Detail 03/08/19 15:40 - Plan (1) GI (gastrointestinal bleed) Status: Acute Qualifiers: GI bleed type/associated pathology: unspecified gastrointestinal hemorrhage type Qualified Code(s): K92.2 - Gastrointestinal hemorrhage, unspecified Plan: TRANSFUSE 1 UNITS PRBC, IV PEPCID, IV PROTONIX, CONTINUE TO MONITOR (2) Anemia Status: Acute Qualifiers: Anemia type: iron deficiency Iron deficiency anemia type: chronic blood loss Qualified Code(s): D50.0 - Iron deficiency anemia secondary to blood loss (chronic)
== END 2019-03-12 11:30 | disposition home or self-care (01) | DRG 379 ==
LOC: MED/SURG 13:50
PROVIDERS: ADMIT Internal Medicine; ATTEND Internal Medicine
CPT/HCPCS: 36415; 36430; 80053; 85014; 85018; 85025; 86850; 86900; 86901; 86922; 93005; A4222; C9113; P9016; S0028; J1200; J3490; J7030; J7040

== ENCOUNTER 2021-12-24 13:08 | Observation (INO) ==
[2021-12-24] MEDS ORDERED: PHARMACY CONSULT - VANCOMYCIN XX SCH (14:00)
[2021-12-24] MEDS: NS 1,000 ML IV 1,000 ML IV SCH (15:29)
[2021-12-24] MEDS: ZOSYN VIAL 3.375 GRAMS 3.375 G in NS 100 ML IV 100 ML IV SCH ×2 (15:29→22:38)
[2021-12-24 16:44] LABS: BASOPHILS % (AUTO) 0.3 % (0.2-1.0); EOSINOPHILS % (AUTO) 0.1 % (0.9-2.9); HEMATOCRIT 32.7 % (36.0-47.0); LYMPHOCYTES # (AUTO) 1.1 X10^3/uL (1.3-2.9); LYMPHOCYTES % (AUTO) 10.5 % (21.0-51.0); MEAN CORPUSCULAR HEMOGLOBIN 27.8 pg (27.0-34.0); MEAN CORPUSCULAR HGB CONC 33.6 g/dL (33.0-35.0); MEAN CORPUSCULAR VOLUME 82.8 fL (80.0-100.0); MEAN PLATELET VOLUME 6.7 fL (7.4-11.0); MONOCYTES # (AUTO) 1.2 x10^3/uL (0.3-0.8); MONOCYTES % (AUTO) 11.9 % (0.0-13.0); NEUTROPHILS # (AUTO) 7.7 x10^3/uL (2.2-4.8); NEUTROPHILS % (AUTO) 77.2 % (42.0-75.0); RED BLOOD COUNT 3.95 X10^6/uL (3.5-5.4); RED CELL DISTRIBUTION WIDTH 14.5 % (11.6-16.5)
[2021-12-24 16:50] LABS: ALANINE AMINOTRANSFERASE 13 Units/L (12-78); ALBUMIN 3.2 g/dL (3.4-5.0); ALKALINE PHOSPHATASE 87 Units/L (46-116); ASPARTATE AMINO TRANSFERASE 11 Units/L (15-37); BLOOD UREA NITROGEN 24 mg/dL (7-18); CALCIUM 8.6 mg/dL (8.5-10.1); CHLORIDE 98 mmol/L (98-107); COR CA(FOR HYPOALB) 9.2 mg/dL (8.5-10.1); CREATININE 1.16 mg/dL (0.55-1.02); SODIUM 132 mmol/L (136-145); TOTAL PROTEIN 6.9 g/dL (6.4-8.2); eGFR NON BLACK RACES 47 (>60)
[2021-12-24] MEDS ORDERED: VANCOMYCIN 1 GRAM PREMIX (ADDVANTAGE) 250 ML IV SCH (18:00)
[2021-12-24] MEDS ORDERED: VANCOMYCIN IV *PREMIX 1 G/200 ML BAG 1 G/200 ML PIGGYBACK IV ONE (18:19)
[2021-12-24 18:28] VITALS: BMI 33.5
[2021-12-25] MEDS: NS 1,000 ML IV 1,000 ML IV SCH ×2 (04:51→16:13)
[2021-12-25] MEDS: ZOSYN VIAL 3.375 GRAMS 3.375 G in NS 100 ML IV 100 ML IV SCH ×3 (05:08→21:01)
[2021-12-25 06:06] LABS: BASOPHILS # (AUTO) 0.1 X10^3/uL (0.0-0.1); BASOPHILS % (AUTO) 0.6 % (0.2-1.0); EOSINOPHILS % (AUTO) 0.2 % (0.9-2.9); HEMATOCRIT 30.3 % (36.0-47.0); HEMOGLOBIN 10.4 g/dL (12.0-16.0); LYMPHOCYTES # (AUTO) 1.2 X10^3/uL (1.3-2.9); LYMPHOCYTES % (AUTO) 12.6 % (21.0-51.0); MEAN CORPUSCULAR HGB CONC 34.3 g/dL (33.0-35.0); MEAN CORPUSCULAR VOLUME 81.6 fL (80.0-100.0); MEAN PLATELET VOLUME 6.8 fL (7.4-11.0); MONOCYTES # (AUTO) 1.1 x10^3/uL (0.3-0.8); MONOCYTES % (AUTO) 11.6 % (0.0-13.0); NEUTROPHILS # (AUTO) 7.4 x10^3/uL (2.2-4.8); RED BLOOD COUNT 3.72 X10^6/uL (3.5-5.4); RED CELL DISTRIBUTION WIDTH 14.5 % (11.6-16.5); WHITE BLOOD COUNT 9.9 X10^3/uL (3.6-10.0)
[2021-12-25 06:19] LABS: ALANINE AMINOTRANSFERASE 11 Units/L (12-78); ALBUMIN 2.7 g/dL (3.4-5.0); ALKALINE PHOSPHATASE 73 Units/L (46-116); ASPARTATE AMINO TRANSFERASE 10 Units/L (15-37); BLOOD UREA NITROGEN 21 mg/dL (7-18); CALCIUM 8.5 mg/dL (8.5-10.1); CARBON DIOXIDE 27.3 mmol/L (21-32); CHLORIDE 100 mmol/L (98-107); COR CA(FOR HYPOALB) 9.5 mg/dL (8.5-10.1); CREATININE 0.98 mg/dL (0.55-1.02); SODIUM 135 mmol/L (136-145); eGFR NON BLACK RACES 58 (>60)
[2021-12-25] MEDS: LOVENOX INJ 40 MG SYR SC SCH (09:50)
--- NOTE | 2021-12-25 11:43 | DR.H&P ---
H&P - History & Physical for Day of: H&P Date: 12/24/21 - Chief Complaint Chief Complaint: LEFT LOWER EXTREMITY REDNESS AND SWELLING - History of Present Illness History of Present Illness: IS A 81 YEAR OLD PATIENT OF OURS. SHE HAS BEEN TREATED IN THE OFFICE FOR BILATERAL LOWER EXTREMITY CELLULITIS AND EDEMA. SHE HAS BEEN ON BACTRIM DS 1 TABLET BID. AFTER COMPLETING BACTRIM, SHE WAS STARTED ON AUGMENTIN 500/125MG PO BID. SHE HAS TAKEN THREE DAYS OF THE AUGMENTIN, CELLULITIS TO THE RLE HAS IMPROVED, HOWEVER, CELLULITIS TO THE LLE HAS PERSISTENTLY GOTTEN WORSE. SHE CONTINUED TO HAVE 1+ PITTING EDEMA TO BLE. DECISION WAS MADE TO ADMIT PATIENT OBSERVATION STATUS FOR FURTHER EVALUATION AND TREATMENT OF LEFT LOWER EXTREMITY CELLULITIS. ON ARRIVAL TO THE HOSPTIAL, HER VITALS WERE 99.1-82-20-99%-181/77. LABS WERE OBTAINED. WBC 10.0, RBC 3.95, HGB 11.0, HCT 32.7, SODIUM 132, POTASSIUM 4.2, BUN 24, CREATININE 1.16, GLUCOSE 98, AST 11, ALT 13, ALK PHOS 87, TOTAL PROTEIN 6.9, ALBUMIN 3.2. COVID-19 WAS NEGATIVE. BLOOD CULTURES WERE SET UP. SHE WAS STARTED ON NORMAL SALINE AT 30 ML/HR, ZOSYN 3.375G IV TID, LOVENOX 40MG SC DAILY, AND LASIX 20MG IV X 2 DOSES. WE WILL RESUME HER HOME MEDICATIONS OF ASPIRIN, LINZESS, ATORVASTATIN, FAMOTIDINE, PANTOPRAZOLE, MONTELUKAST, AND ZOFRAN PRN. OTHERWISE, WE PLAN TO FOLLOW-UP WITH AM LABS AND CONTINUE TO MONITOR. TIME SPENT ON CLINICAL ASSESSMENT, REVIWING LABS AND IMAGING, DECISION MAKING, AND DOCUMENTATION GREATER THAN 75 MINUTES. - Past Medical History Past Medical History: Anemia, Arthritis, CHF, Coronary Artery Disease, GERD, Hypertension, PUD Additional Medical History: LUMBAR DDD - Past Surgical History Surgical History: Angioplasty/Stents, Appendectomy, Hysterectomy - Family History Family Medical History: Cancer, Coronary Artery Disease - Social History Does any household member use tobacco: No Alcohol Use: None Drug Use: None - Medications Home Medications: codeine Adverse Reaction (Verified 05/24/19 07:44) CONTINUE taking the following medications amoxicillin 500 mg-potassium clavulanate 125 mg tablet (Augmentin) 1 tab PO BID 12/25/21 [History] ergocalciferol (vitamin D2) 25,000 unit capsule 50,000 unit PO WEEKLY 12/25/21 [History] lidocaine 4 % topical patch (Lidocaine Pain Relief) 1 patch topical BID PRN Moderate Pain (Scale Score 5-6) 12/25/21 [History] sulfamethoxazole 800 mg-trimethoprim 160 mg tablet (Bactrim DS) 1 tab PO BID 12/25/21 [History] - Review of Systems Constitutional: Fever, Weakness Eyes: No Symptoms Reported ENT: No Symptoms Reported Respiratory: No Symptoms Reported Cardiovascular: Edema (BLE 1+ PITTING EDEMA ) Gastrointestinal: No Symptoms Reported Genitourinary: No Symptoms Reported Musculoskeletal: Leg Pain Skin: No Symptoms Reported Neurological: Weakness - Physical Exam Vital Signs: Temperature 98.2 F Pulse Rate [Left Radial] 68 Respiratory Rate 18 Blood Pressure [Right Arm] 128/60 Blood Pressure [Left Arm] 191/75 Blood Pressure 137/64 O2 Sat by Pulse Oximetry 96 Oriented: Normal Eyes: Normal Ear: Normal Nose: Normal Throat: Normal Respiratory: Diminished Throughout Cardiovascular: Edema (BLE 1+ PITTING EDEMA ) : Normal Auscultation: Bowel Sounds: Normal Palpation: Normal Tenderness: Normal Skin: Normal Musculoskeletal: Right, Left, Leg, Swelling, Tender Psychiatric: Normal Mood Description: Calm Affect: Normal Speech Pattern: Clear - Assessment/Plan (1) Cellulitis of leg, left Status: Acute Plan: ADMIT, NORMAL SALINE AT 30 ML/HR, ZOSYN 3.375G IV TID, LOVENOX 40MG SC DAILY, LASIX 20MG IV X 2 DOSE, RESUME HOME MEDS (2) HTN (hypertension) Qualifiers: Hypertension type: primary hypertension Qualified Code(s): I10 - Essential (primary) hypertension Status: Chronic (3) Hyperlipidemia Qualifiers: Hyperlipidemia type: mixed hyperlipidemia Qualified Code(s): E78.2 - Mixed hyperlipidemia Status: Chronic (4) CAD (coronary artery disease) Qualifiers: Coronary Disease-Associated Artery/Lesion type: [place] artery [place] vs. transplanted heart: [place] heart Associated angina: without angina Qualified Code(s): I25.10 - Atherosclerotic heart disease of [place] coronary artery without angina pectoris Status: Chronic (5) GERD (gastroesophageal reflux disease) Status: Chronic (6) Congestive heart failure (CHF) Qualifiers: Heart failure type: unspecified Heart failure chronicity: chronic Qualified Code(s): I50.9 - Heart failure, unspecified Status: Chronic - Review H&P Reviewed: Yes Patient was examined?: Yes - Allergies Allergies/Adverse Reactions: Allergies Allergy/AdvReac Type Severity Reaction Status Date / Time codeine AdvReac Verified 05/24/19 07:44
[2021-12-25] MEDS: LASIX IVP SCH ×2 (13:41→20:56)
[2021-12-25] MEDS: DIOVAN TAB 160 MG PO SCH ×2 (13:41→20:53)
[2021-12-25] MEDS ORDERED: VANCOMYCIN IV *PREMIX 1 G/200 ML BAG 1 G/200 ML PIGGYBACK IV SCH (18:00)
[2021-12-26 05:02] LABS: BASOPHILS # (AUTO) 0.1 X10^3/uL (0.0-0.1); BASOPHILS % (AUTO) 0.6 % (0.2-1.0); EOSINOPHILS # (AUTO) 0.1 x10^3/uL (0.0-0.2); EOSINOPHILS % (AUTO) 0.7 % (0.9-2.9); HEMOGLOBIN 10.7 g/dL (12.0-16.0); LYMPHOCYTES # (AUTO) 1.1 X10^3/uL (1.3-2.9); LYMPHOCYTES % (AUTO) 12.8 % (21.0-51.0); MEAN CORPUSCULAR HEMOGLOBIN 28.1 pg (27.0-34.0); MEAN CORPUSCULAR HGB CONC 34.5 g/dL (33.0-35.0); MEAN CORPUSCULAR VOLUME 81.3 fL (80.0-100.0); MEAN PLATELET VOLUME 6.8 fL (7.4-11.0); MONOCYTES # (AUTO) 1.2 x10^3/uL (0.3-0.8); MONOCYTES % (AUTO) 12.9 % (0.0-13.0); NEUTROPHILS # (AUTO) 6.5 x10^3/uL (2.2-4.8); RED BLOOD COUNT 3.82 X10^6/uL (3.5-5.4); RED CELL DISTRIBUTION WIDTH 15.1 % (11.6-16.5); WHITE BLOOD COUNT 8.9 X10^3/uL (3.6-10.0)
[2021-12-26 05:13] LABS: ALBUMIN 2.7 g/dL (3.4-5.0); CALCIUM 8.4 mg/dL (8.5-10.1); CARBON DIOXIDE 30.4 mmol/L (21-32); COR CA(FOR HYPOALB) 9.4 mg/dL (8.5-10.1); CREATININE 1.26 mg/dL (0.55-1.02); TOTAL PROTEIN 6.2 g/dL (6.4-8.2)
[2021-12-26] MEDS: NS 1,000 ML IV 1,000 ML IV SCH ×2 (05:31→18:14)
[2021-12-26] MEDS: ZOSYN VIAL 3.375 GRAMS 3.375 G in NS 100 ML IV 100 ML IV SCH ×3 (05:31→21:40)
[2021-12-26] MEDS ORDERED: KLOR-CON PO PRN (05:40)
[2021-12-26] MEDS ORDERED: POTASSIUM CHL 60 MEQ/NS 0.45% 500 ML IV PRN (05:40)
[2021-12-26] MEDS ORDERED: K-RIDER 10 MEQ/NS 100 ML 10 MEQ/100 ML BAG IV PRN (05:40)
[2021-12-26] MEDS ORDERED: K-DUR TAB 20 MEQ PO PRN (05:40)
[2021-12-26] MEDS ORDERED: POTASSIUM CHLORIDE LIQ 20 MEQ UDC PO PRN (05:40)
[2021-12-26] MEDS ORDERED: MICRO K EXTEN CAP 10 MEQ PO PRN (05:40)
[2021-12-26] MEDS ORDERED: POTASSIUM CHL 40 MEQ/NS 0.45% 500 ML IV PRN (05:40)
[2021-12-26] MEDS: MAGNESIUM SULFATE 1 GRAM/100 mL PREMIX 1 G/100 ML BAG IV PRN ×3 (06:27→10:08)
[2021-12-26] MEDS: LOVENOX INJ 40 MG SYR SC SCH (08:23)
[2021-12-26] MEDS: DIOVAN TAB 160 MG PO SCH ×2 (08:24→21:39)
--- NOTE | 2021-12-26 14:05 | PCM.PROG ---
Progress Note Progress Note for Day of Date of Exam: 12/26/21 Subjective Subjective: Patient's bilateral lower extremity edema has improved since admission. She has been up walking around the room and is feeling better. She has no new complaints today. There is no acute problems overnight since admission. Past Medical Family Social History Allergies: Allergies codeine Adverse Reaction (Verified 05/24/19 07:44) Review of Systems ROS: No change since H&P Vital Signs and I&O's Vital Signs: Temperature 98.0 F Pulse Rate [Left Radial] 66 Respiratory Rate 20 Blood Pressure [Right Arm] 128/60 Blood Pressure [Left Arm] 153/86 Blood Pressure 137/64 O2 Sat by Pulse Oximetry 98 Intake and Output: Intake & Output 12/24/21 12/25/21 12/26/21 12/27/21 11:59 11:59 11:59 11:59 Intake Total 990 / 990 3 / 2143 Balance 990 / 990 2142 / 3 Physical Exam Oriented: Normal Eyes: Normal Ear: Normal Nose: Normal Throat: Normal Cardiovascular: Edema (BLE 1+ PITTING EDEMA ) : Normal Auscultation: Bowel Sounds: Normal Tenderness: Normal Skin: Normal Musculoskeletal: Right, Left, Leg, Swelling and Tender Psychiatric: Normal Mood Description: Calm Affect: Normal Speech Pattern: Clear and Appropriate Laboratory and Diagnostics Result Diagrams: 12/26/21 04:25 12/26/21 04:25 Labs: 12/24/21 16:34 Blood Blood Culture - Preliminary 12/24/21 16:18 Blood Blood Culture - Preliminary 12/24/21 18:00 Leg - Left Wound Culture - Preliminary Laboratory WBC 8.9 X10^3/uL (3.6-10.0) 12/26/21 04:25 RBC 3.82 X10^6/uL (3.5-5.4) 12/26/21 04:25 Hgb 10.7 g/dL (12.0-16.0) L 12/26/21 04:25 Hct 31.0 % (36.0-47.0) L 12/26/21 04:25 MCV 81.3 fL (80.0-100.0) 12/26/21 04:25 MCH 28.1 pg (27.0-34.0) 12/26/21 04:25 MCHC 34.5 g/dL (33.0-35.0) 12/26/21 04:25 RDW 15.1 % (11.6-16.5) 12/26/21 04:25 Plt Count 301 X10^3/uL (150.0-450.0) 12/26/21 04:25 MPV 6.8 fL (7.4-11.0) L 12/26/21 04:25 Neut % (Auto) 73.0 % (42.0-75.0) 12/26/21 04:25 Lymph % (Auto) 12.8 % (21.0-51.0) L 12/26/21 04:25 [place] % (Auto) 12.9 % (0.0-13.0) 12/26/21 04:25 Eos % (Auto) 0.7 % (0.9-2.9) L 12/26/21 04:25 Baso % (Auto) 0.6 % (0.2-1.0) 12/26/21 04:25 Neut # (Auto) 6.5 x10^3/uL (2.2-4.8) H 12/26/21 04:25 Lymph # (Auto) 1.1 X10^3/uL (1.3-2.9) L 12/26/21 04:25 Levy # (Auto) 1.2 x10^3/uL (0.3-0.8) H 12/26/21 04:25 Eos # (Auto) 0.1 x10^3/uL (0.0-0.2) 12/26/21 04:25 Baso # (Auto) 0.1 X10^3/uL (0.0-0.1) 12/26/21 04:25 Absolute Nucleated RBC 0.0 /100WBC 12/26/21 04:25 Sodium 136 mmol/L (136-145) 12/26/21 04:25 Corrected Sodium 137 mmol/L (136-145) 12/26/21 04:25 Potassium 3.5 mmol/L (3.5-5.1) 12/26/21 04:25 Chloride 98 mmol/L (98-107) 12/26/21 04:25 Carbon Dioxide 30.4 mmol/L (21-32) 12/26/21 04:25 BUN 19 mg/dL (7-18) H 12/26/21 04:25 Creatinine 1.26 mg/dL (0.55-1.02) H 12/26/21 04:25 Est GFR (MDRD) Af Amer 52 (>60) L 12/26/21 04:25 Est GFR (MDRD) Non-Af 43 (>60) L 12/26/21 04:25 Glucose 136 mg/dL (65-99) H 12/26/21 04:25 Calcium 8.4 mg/dL (8.5-10.1) L 12/26/21 04:25 Corrected Calcium 9.4 mg/dL (8.5-10.1) 12/26/21 04:25 Magnesium 1.5 mg/dL (1.7-2.9) L 12/26/21 04:25 Total Bilirubin 0.50 mg/dL (0.2-1.0) 12/26/21 04:25 AST 10 Units/L (15-37) L 12/26/21 04:25 ALT 13 Units/L (12-78) 12/26/21 04:25 Alkaline Phosphatase 77 Units/L (46-116) 12/26/21 04:25 C-Reactive Protein 1.90 mg/L (0-3.0) 12/25/21 05:21 Total Protein 6.2 g/dL (6.4-8.2) L 12/26/21 04:25 Albumin 2.7 g/dL (3.4-5.0) L 12/26/21 04:25 Globulin 3.5 g/dL (2.5-4.5) 12/26/21 04:25 Albumin/Globulin Ratio 0.8 Ratio (1.1-2.1) L 12/26/21 04:25 SARS-CoV-2 (PCR) Negative (NEGATIVE) 12/24/21 15:05 Plan (1) Cellulitis of leg, left: Status: Acute Plan: ADMIT, NORMAL SALINE AT 30 ML/HR, ZOSYN 3.375G IV TID, LOVENOX 40MG SC DAILY, LASIX 20MG IV X 2 DOSE, RESUME HOME MEDS (2) HTN (hypertension): Status: Chronic Qualifiers: Hypertension type: primary hypertension Qualified Code(s): I10 - Essential (primary) hypertension (3) Hyperlipidemia: Status: Chronic Qualifiers: Hyperlipidemia type: mixed hyperlipidemia Qualified Code(s): E78.2 - Mixed hyperlipidemia (4) CAD (coronary artery disease): Status: Chronic Qualifiers: Coronary Disease-Associated Artery/Lesion type: [place] artery [place] vs. transplanted heart: [place] heart Associated angina: without angina Qualified Code(s): I25.10 - Atherosclerotic heart disease of [place] coronary artery without angina pectoris (5) GERD (gastroesophageal reflux disease): Status: Chronic (6) Congestive heart failure (CHF): Status: Chronic Qualifiers: Heart failure chronicity: chronic Heart failure type: unspecified Qualified Code(s): I50.9 - Heart failure, unspecified (7) Hypomagnesemia: Status: Acute Plan: Patient will receive IV magnesium sulfate replace her low magnesium level this morning. Recheck CMP along with magnesium tomorrow morning.
[2021-12-27 06:35] LABS: BASOPHILS # (AUTO) 0.1 X10^3/uL (0.0-0.1); BASOPHILS % (AUTO) 0.8 % (0.2-1.0); EOSINOPHILS % (AUTO) 0.4 % (0.9-2.9); HEMATOCRIT 32.7 % (36.0-47.0); HEMOGLOBIN 11.2 g/dL (12.0-16.0); LYMPHOCYTES # (AUTO) 1.2 X10^3/uL (1.3-2.9); LYMPHOCYTES % (AUTO) 13.7 % (21.0-51.0); MEAN CORPUSCULAR HGB CONC 34.1 g/dL (33.0-35.0); MEAN CORPUSCULAR VOLUME 82.2 fL (80.0-100.0); MEAN PLATELET VOLUME 7.1 fL (7.4-11.0); MONOCYTES # (AUTO) 0.8 x10^3/uL (0.3-0.8); MONOCYTES % (AUTO) 9.5 % (0.0-13.0); NEUTROPHILS # (AUTO) 6.6 x10^3/uL (2.2-4.8); NEUTROPHILS % (AUTO) 75.6 % (42.0-75.0); RED BLOOD COUNT 3.99 X10^6/uL (3.5-5.4); WHITE BLOOD COUNT 8.8 X10^3/uL (3.6-10.0)
[2021-12-27 06:39] LABS: ALANINE AMINOTRANSFERASE 11 Units/L (12-78); ALBUMIN 2.8 g/dL (3.4-5.0); ALKALINE PHOSPHATASE 76 Units/L (46-116); ASPARTATE AMINO TRANSFERASE 12 Units/L (15-37); BLOOD UREA NITROGEN 15 mg/dL (7-18); CALCIUM 8.7 mg/dL (8.5-10.1); CARBON DIOXIDE 31.5 mmol/L (21-32); CHLORIDE 99 mmol/L (98-107); COR CA(FOR HYPOALB) 9.7 mg/dL (8.5-10.1); COR NA(FOR HYPERGLY) 136 mmol/L (136-145); CREATININE 1.06 mg/dL (0.55-1.02); MAGNESIUM 2.1 mg/dL (1.7-2.9); SODIUM 135 mmol/L (136-145); TOTAL PROTEIN 6.4 g/dL (6.4-8.2); eGFR NON BLACK RACES 53 (>60)
[2021-12-27] MEDS: ZOSYN VIAL 3.375 GRAMS 3.375 G in NS 100 ML IV 100 ML IV SCH (07:34)
[2021-12-27] MEDS: DIOVAN TAB 160 MG PO SCH (08:58)
[2021-12-27] MEDS: LOVENOX INJ 40 MG SYR SC SCH (08:59)
[2021-12-27] MEDS: NS 1,000 ML IV 1,000 ML IV SCH (09:08)
[2021-12-27] MEDS ORDERED: AUGMENTIN 500 MG/125 MG TAB PO ONE (11:11)
[2021-12-27 12:10] VITALS: BP 182/81
[2021-12-27] MEDS ORDERED: PHARMACY COMMENT IV ONE (17:30)
[2021-12-29] MEDS ORDERED: PHARMACY COMMENT IV SCH (05:00)
== END 2021-12-27 13:40 | disposition home or self-care (01) ==
LOC: MED/SURG
PROVIDERS: ADMIT Internal Medicine; ATTEND Internal Medicine
DX: K21.9 Gastro-esophageal reflux disease without esophagitis; Z20.822 Contact with and (suspected) exposure to COVID-19; I25.10 Atherosclerotic heart disease of native coronary artery without angina pectoris; I11.0 Hypertensive heart disease with heart failure; I50.9 Heart failure, unspecified; E83.42 Hypomagnesemia; L03.116 Cellulitis of left lower limb; E78.2 Mixed hyperlipidemia

== ENCOUNTER 2022-11-29 17:13 | Observation (INO) ==
[2022-11-29] MEDS ORDERED: PROVENTIL NEB TX 0.083% 2.5MG/ 3ML NEB PRN (18:28)
[2022-11-29] MEDS: NS 1,000 ML IV 1,000 ML IV SCH (18:43)
[2022-11-29 19:23] LABS: BASOPHILS % (AUTO) 0.9 % (0.2-1.0); HEMATOCRIT 30.6 % (36.0-47.0); HEMOGLOBIN 10.2 g/dL (12.0-16.0); LYMPHOCYTES # (AUTO) 1.1 X10^3/uL (1.3-2.9); LYMPHOCYTES % (AUTO) 25.7 % (21.0-51.0); MEAN CORPUSCULAR HEMOGLOBIN 29.3 pg (27.0-34.0); MEAN CORPUSCULAR HGB CONC 33.5 g/dL (33.0-35.0); MEAN CORPUSCULAR VOLUME 87.4 fL (80.0-100.0); MEAN PLATELET VOLUME 7.2 fL (7.4-11.0); MONOCYTES # (AUTO) 0.7 x10^3/uL (0.3-0.8); NEUTROPHILS # (AUTO) 2.4 x10^3/uL (2.2-4.8); NEUTROPHILS % (AUTO) 56.4 % (42.0-75.0); PLATELET COUNT 243 X10^3/uL (150.0-450.0); RED CELL DISTRIBUTION WIDTH 15.9 % (11.6-16.5); WHITE BLOOD COUNT 4.3 X10^3/uL (3.6-10.0)
[2022-11-29 19:33] LABS: BLOOD UREA NITROGEN 9 mg/dL (7-18); CALCIUM 9.4 mg/dL (8.5-10.1); CARBON DIOXIDE 28.1 mmol/L (21-32); CHLORIDE 100 mmol/L (98-107); GLUCOSE 99 mg/dL (65-99); POTASSIUM 3.6 mmol/L (3.5-5.1); SODIUM 136 mmol/L (136-145); eGFR NON BLACK RACES 38 (>60)
[2022-11-29 19:49] LABS: ALANINE AMINOTRANSFERASE 13 Units/L (12-78); ALBUMIN 3.4 g/dL (3.4-5.0); ALKALINE PHOSPHATASE 114 Units/L (46-116); ASPARTATE AMINO TRANSFERASE 14 Units/L (15-37); TOTAL PROTEIN 6.6 g/dL (6.4-8.2)
[2022-11-29] MEDS: LEVAQUIN PREMIX IV 500 MG 500 MG/100 ML BAG IV SCH (20:29)
[2022-11-29] MEDS ORDERED: TYLENOL 325 MG TAB PO PRN (20:30)
[2022-11-30 06:16] LABS: BLOOD UREA NITROGEN 8 mg/dL (7-18); CALCIUM 8.9 mg/dL (8.5-10.1); CARBON DIOXIDE 26.4 mmol/L (21-32); CHLORIDE 104 mmol/L (98-107); CREATININE 1.21 mg/dL (0.55-1.02); GLUCOSE 88 mg/dL (65-99); POTASSIUM 4.1 mmol/L (3.5-5.1); SODIUM 136 mmol/L (136-145); eGFR NON BLACK RACES 45 (>60)
[2022-11-30 06:18] LABS: BASOPHILS % (AUTO) 0.8 % (0.2-1.0); EOSINOPHILS # (AUTO) 0.1 x10^3/uL (0.0-0.2); HEMATOCRIT 28.5 % (36.0-47.0); HEMOGLOBIN 9.7 g/dL (12.0-16.0); LYMPHOCYTES # (AUTO) 1.7 X10^3/uL (1.3-2.9); LYMPHOCYTES % (AUTO) 44.4 % (21.0-51.0); MEAN CORPUSCULAR HEMOGLOBIN 29.6 pg (27.0-34.0); MEAN CORPUSCULAR VOLUME 87.1 fL (80.0-100.0); MEAN PLATELET VOLUME 7.4 fL (7.4-11.0); MONOCYTES # (AUTO) 0.7 x10^3/uL (0.3-0.8); MONOCYTES % (AUTO) 17.8 % (0.0-13.0); NEUTROPHILS # (AUTO) 1.3 x10^3/uL (2.2-4.8); PLATELET COUNT 230 X10^3/uL (150.0-450.0); RED BLOOD COUNT 3.27 X10^6/uL (3.5-5.4); WHITE BLOOD COUNT 3.8 X10^3/uL (3.6-10.0)
[2022-11-30 06:44] LABS: ALANINE AMINOTRANSFERASE 14 Units/L (12-78); ALBUMIN 2.7 g/dL (3.4-5.0); ALKALINE PHOSPHATASE 100 Units/L (46-116); ASPARTATE AMINO TRANSFERASE 14 Units/L (15-37); COR CA(FOR HYPOALB) 9.9 mg/dL (8.5-10.1); TOTAL PROTEIN 5.7 g/dL (6.4-8.2)
[2022-11-30] MEDS ORDERED: CONSULT PHARMACY - POTASSIUM & MAGNESIUM XX SCH (08:00)
[2022-11-30] MEDS: LEVAQUIN PREMIX IV 500 MG 500 MG/100 ML BAG IV SCH (08:45)
[2022-11-30] MEDS ORDERED: MAG-OX TAB PO ONE (09:00)
[2022-11-30] MEDS ORDERED: PHARMACY CONSULT - VANCOMYCIN XX SCH (09:00)
[2022-11-30] MEDS: VANCOMYCIN IV *PREMIX 1.25 G/250 ML BAG 1.25 G/250 ML PIGGYBACK IV SCH (11:07)
[2022-11-30] MEDS: LOVENOX INJ 40 MG SYR SC SCH (11:07)
--- NOTE | 2022-11-30 11:51 | DR.H&P ---
H&P - History & Physical for Day of: H&P Date: 11/29/22 - Chief Complaint Chief Complaint: RIGHT LOWER EXTREMITY REDNESS AND SWELLING - History of Present Illness History of Present Illness: IS A 82 YEAR OLD PATIENT OF OURS. SHE HAS A PMH OF HTN, GERD, HYPERLIPIDEMIA, SLEEP APNEA, GI BLEED, OSTEOARTHRITIS, APPENDECTOMY, HYSTERECTOMY, AND CARDIAC STENTS. SHE PRESENTED TO THE HOSPITAL FOR FURTHER EVALUATION AND TREATMENT OF BILATERAL LOWER EXTREMITY EDEMA, WITH THE RLE BEING WORSE. RIGHT LOWER EXTREMITY IS NOTED TO HAVE AN OPEN WOUND TO THE LOWER ANTERIOR LEG. SHE REPORTS THAT A BOTTLE FELL FROM A HIGH SHELF THREE WEEKS AGO AND CUT HER LEG. THERE IS NO DRAINAGE FROM WOUND. SHE HAS TAKEN DOXYCYCLINE 100MG BID X 10 DAYS, BACTRIM DS 1 TAB BID X 10 DAYS, AND USED GENTAMICIN OINTMENT X 10 DAYS WITHOUT IMPROVEMENT IN SYMTPOMS. BLE ARE NOTED TO HAVE 2+ PITTING EDEMA. RLE IS VERY WARM TO THE TOUCH. ADDITIONALLY, PATIENT COMPLAINS OF DIFFICULTY SWALLOWING. SHE IS OFTEN CHOKING ON HER PILLS. ON ARRIVAL TO THE HOSPITAL, HER VITALS WERE: 98.3-78-20-99%-141/63. LABS WERE OBTAINED. WBC 4.3, RBC 3.50, HGB 10.2, HCT 30.6, PLT COUNT 243, SODIUM 136, POTASSIUM 3.6, CHLORIDE 100, CARBON DIOXIDE 28.1, BUN 9, CREATININE 1.40, GLUCOSE 99, CALCIUM 9.4, TOTAL BILI 0.30, AST 14, ALT 13, ALK PHOS 114, TOTAL PROTEIN 6.6, ALBUMIN 3.4. BLOOD CULTURES WERE SET UP. SHE WAS STARTED ON NORMAL SALINE AT 50 ML/HR, LEVAQUIN 500MG IV DAILY, VANCOMYCIN 1.25G IV DAILY, LOVENOX 40MG SC DAILY, MAG OX 400MG BID, PROVENTIL NEBS Q4H PRN. WE WILL RESUME HER HOME MEDICATIONS OF VALSARTAN, POTASSIUM CHLORIDE, FAMOTIDIEN, NORCO, LINZESS, PANTOPRAZOLE, AND ATORVASTATIN. WE WILL CONSULT DUE TO DYSPHAGIA. WE WILL CULTURE THE WOUND ON HER RIGHT LEG. OTHERWISE, WE WILL FOLLOW UP WITH AM LABS AND CONTINUE TO MONITOR. TIME SPENT ON CLINICAL ASSESSMENT, REVIEWING LABS AND IMAGING, DECISION MAKING, AND DOCUMENTATION GREATER THAN 75 MINUTES. - Past Medical History Past Medical History: Coronary Artery Disease, Hypertension, Anemia, PUD, GERD, Arthritis, CHF Additional Medical History: LUMBAR DDD - Past Surgical History Surgical History: Appendectomy, Hysterectomy - Family History Family Medical History: Diabetes Mellitus, Cancer, Hypertension - Social History Does any household member use tobacco: No Alcohol Use: None Drug Use: None - Review of Systems Constitutional: Weakness. denies: Fever Eyes: No Symptoms Reported ENT: No Symptoms Reported Respiratory: No Symptoms Reported Cardiovascular: Edema (BILATERAL LEGS ) Gastrointestinal: No Symptoms Reported Genitourinary: No Symptoms Reported Musculoskeletal: No Symptoms Reported Skin: No Symptoms Reported Neurological: Weakness - Physical Exam Vital Signs: Vital Signs Temperature 98.2 F Temperature 97.8 F Pulse Rate [Right Brachial] 84 Pulse Rate [Right Brachial] 84 Respiratory Rate 20 Respiratory Rate 20 Blood Pressure [Right Arm] 141/62 Blood Pressure [Right Arm] 170/69 O2 Sat by Pulse Oximetry 97 O2 Sat by Pulse Oximetry 96 Oriented: Normal. negative: Time, Person, Place, Not Oriented, Unable to test, Other Eyes: Normal Ear: Normal Nose: Normal Throat: Normal Respiratory: Diminished Throughout Cardiovascular: Edema (BLE 2+ PITTING EDEMA ) : Normal Auscultation: Bowel Sounds: Normal Palpation: Normal Tenderness: Normal Skin: Red (BILATERAL LOWER EXTREMITIES ), Tender, Hot, Wound (RIGHT LOWER ANTERIOR LEG) Musculoskeletal: Right, Left, Leg, Swelling, Tender Psychiatric: Normal Mood Description: Calm Affect: Normal Speech Pattern: Clear - Assessment/Plan (1) Bilateral lower leg cellulitis Status: Acute Plan: ADMIT, NORMAL SALINE AT 50 ML/HR, LEVAQUIN 500MG IV DAILY, VANCOMYCIN 1.25G IV DAILY, LOVENOX 40MG SC DAILY, MAG OX 400MG BID, PROVENTIL NEBS Q4H PRN. WE WILL RESUME HER HOME MEDICATIONS OF VALSARTAN, POTASSIUM CHLORIDE, FAMOTIDINE, NORCO, LINZESS, PANTOPRAZOLE, AND ATORVASTATIN. (2) Wound of right leg Qualifiers: Encounter type: initial encounter Qualified Code(s): S81.801A - Unspecified open wound, right lower leg, initial encounter Status: Acute (3) Hypomagnesemia Status: Acute (4) Hyperlipidemia Qualifiers: Hyperlipidemia type: mixed hyperlipidemia Status: Chronic (5) GERD (gastroesophageal reflux disease) Qualifiers: Esophagitis presence: esophagitis presence not specified Qualified Code(s): K21.9 - Gastro-esophageal reflux disease without esophagitis Status: Chronic (6) HTN (hypertension) Qualifiers: Hypertension type: primary hypertension Status: Chronic - Allergies Allergies/Adverse Reactions: Allergies Allergy/AdvReac Type Severity Reaction Status Date / Time codeine Allergy Unknown Unverified 05/24/19 07:44 - Medications Home Medications: Home Medications Medication Instructions Recorded Confirmed atorvastatin 40 mg tablet 40 mg PO QHS 03/08/19 11/30/22 famotidine 40 mg tablet 40 mg PO QHS 03/08/19 11/30/22 linaclotide 145 mcg capsule 145 mcg PO DAILY 03/08/19 11/30/22 (Linzess) methotrexate sodium 2.5 mg tablet 12.5 mg PO WEEKLY 03/08/19 11/30/22 valsartan 160 mg tablet 160 mg PO BID 12/25/21 11/30/22 hydrocodone 10 mg-acetaminophen 1 tab PO TID PRN 11/30/22 11/30/22 325 mg tablet potassium chloride 10 mEq 10 meq PO QDAY 11/30/22 11/30/22 tablet,extended release Previous Rx's Medication Instructions Recorded pantoprazole 40 mg tablet,delayed 40 mg PO BID #60 tabs 03/12/19 release acetaminophen 500 mg tablet 1,000 mg PO .Q8 PRN pain #30 tabs 11/19/22 (Tylenol Extra Strength)
[2022-11-30] MEDS: NS 1,000 ML IV 1,000 ML IV SCH ×3 (14:56→21:42)
[2022-11-30] MEDS: MAG-OX TAB PO SCH (20:28)
[2022-11-30] MEDS: LIDODERM 5% PATCH TD SCH (21:43)
[2022-12-01] MEDS: NS 1,000 ML IV 1,000 ML IV SCH (05:15)
[2022-12-01 06:52] LABS: BLOOD UREA NITROGEN 6 mg/dL (7-18); CARBON DIOXIDE 26.9 mmol/L (21-32); CHLORIDE 105 mmol/L (98-107); CREATININE 0.94 mg/dL (0.55-1.02); GLUCOSE 92 mg/dL (65-99); POTASSIUM 4.3 mmol/L (3.5-5.1); SODIUM 137 mmol/L (136-145); eGFR NON BLACK RACES > 60 (>60)
[2022-12-01 07:01] LABS: EOSINOPHILS # (AUTO) 0.1 x10^3/uL (0.0-0.2); EOSINOPHILS % (AUTO) 2.2 % (0.9-2.9); HEMOGLOBIN 9.2 g/dL (12.0-16.0); LYMPHOCYTES # (AUTO) 1.1 X10^3/uL (1.3-2.9); LYMPHOCYTES % (AUTO) 32.9 % (21.0-51.0); MEAN CORPUSCULAR HEMOGLOBIN 29.6 pg (27.0-34.0); MEAN CORPUSCULAR HGB CONC 34.1 g/dL (33.0-35.0); MEAN CORPUSCULAR VOLUME 86.8 fL (80.0-100.0); MEAN PLATELET VOLUME 7.8 fL (7.4-11.0); MONOCYTES # (AUTO) 0.9 x10^3/uL (0.3-0.8); MONOCYTES % (AUTO) 26.3 % (0.0-13.0); NEUTROPHILS # (AUTO) 1.2 x10^3/uL (2.2-4.8); NEUTROPHILS % (AUTO) 37.6 % (42.0-75.0); PLATELET COUNT 199 X10^3/uL (150.0-450.0); RED CELL DISTRIBUTION WIDTH 15.6 % (11.6-16.5); WHITE BLOOD COUNT 3.2 X10^3/uL (3.6-10.0)
[2022-12-01 07:20] LABS: BAND NEUTROPHILS % 2 % (0-10); PLATELET MORPHOLOGY COMMENT NORMAL (NORMAL)
[2022-12-01 07:26] LABS: BURR CELLS 1+; TARGET CELLS SLIGHT
[2022-12-01 07:34] LABS: ALANINE AMINOTRANSFERASE 10 Units/L (12-78); ALBUMIN 2.4 g/dL (3.4-5.0); ALKALINE PHOSPHATASE 95 Units/L (46-116); ASPARTATE AMINO TRANSFERASE 14 Units/L (15-37); COR CA(FOR HYPOALB) 10.3 mg/dL (8.5-10.1); MAGNESIUM 1.7 mg/dL (2.0-2.9)
[2022-12-01] MEDS ORDERED: ZOFRAN INJ 4 MG VIAL ONE (08:20)
[2022-12-01] MEDS: MAG-OX TAB PO SCH ×2 (08:21→21:45)
[2022-12-01] MEDS: LOVENOX INJ 40 MG SYR SC SCH (08:22)
[2022-12-01] MEDS: LIDODERM 5% PATCH TD SCH (08:22)
[2022-12-01] MEDS: LEVAQUIN PREMIX IV 500 MG 500 MG/100 ML BAG IV SCH (08:22)
[2022-12-01] MEDS: ZOFRAN INJ 4 MG VIAL IVP PRN (08:22)
[2022-12-01] MEDS: PROTONIX TAB 40 MG PO SCH ×2 (09:55→21:45)
[2022-12-01] MEDS: MICRO K EXTEN CAP 10 MEQ PO SCH (09:55)
[2022-12-01] MEDS: DIOVAN TAB 160 MG PO SCH ×2 (09:55→21:44)
[2022-12-01] MEDS: VANCOMYCIN IV *PREMIX 1.25 G/250 ML BAG 1.25 G/250 ML PIGGYBACK IV SCH (09:55)
[2022-12-01] MEDS: LINZESS PO SCH (09:55)
--- NOTE | 2022-12-01 11:44 | PCM.PROG ---
Progress Note - Progress Note for Day of Date of Exam: 12/01/22 - Subjective Subjective: IS CURRENTLY INPATIENT STATUS FOR TREATMENT OF BILATERAL LOWER EXTREMITY CELLULITIS (FAILED OUTPATIENT TX), RIGHT LEG WOUND, DYSPHAGIA, HYPOMAGNESEMIA, HYPERLIPIDEMIA, GERD, AND HTN. TODAY, SHE IS ALERT AND ORIENTED, LYING IN BED ON MORNING ROUNDS. SHE CONTINUES TO COMPLAIN OF PAIN AND SWELLING TO BILATERAL LOWER EXTREMITIES, BUT DOES ADMIT TO SLIGHT IMPROVEMENT IN SYMPTOMS SINCE ADMISSION. ON EXAMINATION, HEART IS REGULAR IN RATE AND RHYTHM. BILATERAL LUNGS ARE CLEAR TO AUSCULTATION. ABDOMEN IS ROUND, SOFT, AND NON-TENDER WITH NORAMAL BOWEL SOUNDS NOTED IN ALL QUADRANTS. GOOD RANGE OF MOTION NOTED TO UPPER AND LOWER EXTREMITIES. THERE IS DECREASED ERYTHEMA OF BOTH LEGS. SHE CONTINUES TO HAVE 2+ PITTING EDEMA TO BLE. HER VITALS THIS MORNING ARE: 98.7-96-20-99%-152/67. LABS WERE OBTAINED. WBC 3.2, RBC 3.10, HGB 9.2, HCT 27.0, PLT COUNT 199, SODIUM 137, POTASSIUM 4.3, CHLORIDE 105, BUN 6, CREATININE 0.94, GLUCOSE 92, CALCIUM 9.0, MAGNESIUM 1.7, AST 14, ALT 10, ALK PHOS 95, TOTAL PROTEIN 5.0, ALBUMIN 2.4. WOUND AND BLOOD CULTURES ARE PENDING. 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 HE CONSULTED WITH PATIENT AND PLANS FOR AN EGD TOMORROW MORNING. WE ARE IN AGREEMENT WITH HIS PLANS AND WILL HOLD HER NPO PAST MIDNIGHT. SHE IS CURRENTLY RECEIVING NORMAL SALINE AT 50 ML/HR, LEVAQUIN 500MG IV DAILY, VANCOMYCIN 1.25G IV DAILY, LOVENOX 40MG SC DAILY, MAG OX 400MG BID, PROVENTIL NEBS Q4H PRN. WE WILL RESUME HER HOME MEDICATIONS OF VALSARTAN, POTASSIUM CHLORIDE, FAMOTIDINE, NORCO, LINZESS, PANTOPRAZOLE, AND ATORVASTATIN. WE WILL CONTINUE WITH CURRENT PLAN OF CARE TODAY. OTHERWISE, WE WILL FOLLOW UP WITH AM LABS AND CONTINUE TO MONITOR. TIME SPENT ON CLINICAL ASSESSMENT, REVIEWING LABS AND IMAGING, DECISION MAKING, AND DOCUMENTATION GREATER THAN 45 MINUTES. - Past Medical Family Social History Past Med/Fam/Surg Hx: No changes since H&P Allergies: Allergies codeine Allergy (Unknown, Unverified 05/24/19 07:44) Reason: Drug allergy - Review of Systems ROS: No change since H&P - Vital Signs and I&O's Vital Signs: Vital Signs Temperature 98.7 F Temperature 98.6 F Pulse Rate [Right Brachial] 96 Pulse Rate [Right Brachial] 74 Respiratory Rate 20 Respiratory Rate 20 Blood Pressure [Right Arm] 152/67 Blood Pressure [Right Arm] 149/63 O2 Sat by Pulse Oximetry 99 O2 Sat by Pulse Oximetry 99 Intake and Output: Intake & Output 11/28/22 11/29/22 11/30/22 12/01/22 11:59 11:59 11:59 11:59 Intake Total 1548 / 1548 2251 / 2251 Output Total Balance 1547 / 1547 2251 / 2251 - Physical Exam Oriented: Normal. negative: Time, Person, Place, Not Oriented, Unable to test, Other Eyes: Normal Ear: Normal Nose: Normal Throat: Normal Respiratory: Generalized, Diminished Cardiovascular: Edema (BLE 2+ PITTING EDEMA ) : Normal Auscultation: Bowel Sounds: Normal Palpation: Normal Tenderness: Normal Skin: Red (BILATERAL LOWER EXTREMITIES ), Tender, Hot, Wound (RIGHT LOWER ANTERIOR LEG) Musculoskeletal: Right, Left, Leg, Swelling, Tender Psychiatric: Normal Mood Description: Calm Affect: Normal Speech Pattern: Clear, Appropriate - Laboratory and Diagnostics Result Diagrams: 12/01/22 05:28 12/01/22 05:28 Labs: 11/30/22 11:43 Leg - Right Wound Gram Stain - Final 11/30/22 11:43 Leg - Right Wound Culture - Preliminary Laboratory WBC 3.2 X10^3/uL (3.6-10.0) L 12/01/22 05:28 RBC 3.10 X10^6/uL (3.5-5.4) L 12/01/22 05:28 Hgb 9.2 g/dL (12.0-16.0) L 12/01/22 05:28 Hct 27.0 % (36.0-47.0) L 12/01/22 05:28 MCV 86.8 fL (80.0-100.0) 12/01/22 05:28 MCH 29.6 pg (27.0-34.0) 12/01/22 05:28 MCHC 34.1 g/dL (33.0-35.0) 12/01/22 05:28 RDW 15.6 % (11.6-16.5) 12/01/22 05:28 Plt Count 199 X10^3/uL (150.0-450.0) 12/01/22 05:28 Plt Count Comment Adequate (ADEQUATE) 12/01/22 05:28 MPV 7.8 fL (7.4-11.0) 12/01/22 05:28 Neut % (Auto) 37.6 % (42.0-75.0) L 12/01/22 05:28 Lymph % (Auto) 32.9 % (21.0-51.0) 12/01/22 05:28 [place] % (Auto) 26.3 % (0.0-13.0) H 12/01/22 05:28 Eos % (Auto) 2.2 % (0.9-2.9) 12/01/22 05:28 Baso % (Auto) 1.0 % (0.2-1.0) 12/01/22 05:28 Neut # (Auto) 1.2 x10^3/uL (2.2-4.8) L 12/01/22 05:28 Lymph # (Auto) 1.1 X10^3/uL (1.3-2.9) L 12/01/22 05:28 [place] # (Auto) 0.9 x10^3/uL (0.3-0.8) H 12/01/22 05:28 Eos # (Auto) 0.1 x10^3/uL (0.0-0.2) 12/01/22 05:28 Baso # (Auto) 0.0 X10^3/uL (0.0-0.1) 12/01/22 05:28 Absolute Nucleated RBC 0.2 /100WBC 12/01/22 05:28 Total Counted 100 12/01/22 05:28 Neutrophils % (Manual) 46 % (39-76) 12/01/22 05:28 Band Neutrophils % 2 % (0-10) 12/01/22 05:28 Lymphocytes % (Manual) 31 % (13-43) 12/01/22 05:28 Monocytes % (Manual) 17 % (4-9) H 12/01/22 05:28 Eosinophils % (Manual) 4 % (0-6) 12/01/22 05:28 Plt Morphology Comment Normal (NORMAL) 12/01/22 05:28 RBC Morphology Abnormal (NORMAL) A 12/01/22 05:28 Target Cells Slight A 12/01/22 05:28 [place] Cells 1+ A 12/01/22 05:28 Sodium 137 mmol/L (136-145) 12/01/22 05:28 Corrected Sodium TNP 12/01/22 05:28 Potassium 4.3 mmol/L (3.5-5.1) 12/01/22 05:28 Chloride 105 mmol/L (98-107) 12/01/22 05:28 Carbon Dioxide 26.9 mmol/L (21-32) 12/01/22 05:28 BUN 6 mg/dL (7-18) L 12/01/22 05:28 Creatinine 0.94 mg/dL (0.55-1.02) 12/01/22 05:28 Est GFR (MDRD) Af Amer > 60 (>60) 12/01/22 05:28 Est GFR (MDRD) Non-Af > 60 (>60) 12/01/22 05:28 Glucose 92 mg/dL (65-99) 12/01/22 05:28 Calcium 9.0 mg/dL (8.5-10.1) 12/01/22 05:28 Corrected Calcium 10.3 mg/dL (8.5-10.1) H 12/01/22 05:28 Magnesium 1.7 mg/dL (2.0-2.9) L 12/01/22 05:28 Total Bilirubin 0.40 mg/dL (0.2-1.0) 12/01/22 05:28 AST 14 Units/L (15-37) L 12/01/22 05:28 ALT 10 Units/L (12-78) L 12/01/22 05:28 Alkaline Phosphatase 95 Units/L (46-116) 12/01/22 05:28 Total Protein 5.0 g/dL (6.4-8.2) L 12/01/22 05:28 Albumin 2.4 g/dL (3.4-5.0) L 12/01/22 05:28 Globulin 2.6 g/dL (2.5-4.5) 12/01/22 05:28 Albumin/Globulin Ratio 0.9 Ratio (1.1-2.1) L 12/01/22 05:28 - Plan (1) Bilateral lower leg cellulitis Status: Acute Plan: NORMAL SALINE AT 50 ML/HR, LEVAQUIN 500MG IV DAILY, VANCOMYCIN 1.25G IV DAILY, LOVENOX 40MG SC DAILY, MAG OX 400MG BID, PROVENTIL NEBS Q4H PRN. WE WILL RESUME HER HOME MEDICATIONS OF VALSARTAN, POTASSIUM CHLORIDE, FAMOTIDINE, NORCO, LINZESS, PANTOPRAZOLE, AND ATORVASTATIN. (2) Wound of right leg Status: Acute Qualifiers: Encounter type: initial encounter Qualified Code(s): S81.801A - Unspecified open wound, right lower leg, initial encounter (3) Dysphagia Status: Acute Qualifiers: Dysphagia type: unspecified Qualified Code(s): R13.10 - Dysphagia, unspecified Plan: CONSULT GASTROENTEROLOGY (4) Hypomagnesemia Status: Acute (5) Hyperlipidemia Status: Chronic Qualifiers: Hyperlipidemia type: mixed hyperlipidemia (6) GERD (gastroesophageal reflux disease) Status: Chronic Qualifiers: Esophagitis presence: esophagitis presence not specified Qualified Code(s): K21.9 - Gastro-esophageal reflux disease without esophagitis (7) HTN (hypertension) Status: Chronic Qualifiers: Hypertension type: primary hypertension
[2022-12-01] MEDS: PEPCID TAB 40 MG PO SCH (21:45)
[2022-12-01] MEDS: NORCO 10/325 TAB PO PRN (21:45)
[2022-12-01] MEDS: LIPITOR TAB 40 MG PO SCH (21:45)
[2022-12-02 06:54] LABS: BASOPHILS % (AUTO) 0.5 % (0.2-1.0); EOSINOPHILS # (AUTO) 0.1 x10^3/uL (0.0-0.2); EOSINOPHILS % (AUTO) 2.9 % (0.9-2.9); HEMOGLOBIN 9.1 g/dL (12.0-16.0); LYMPHOCYTES # (AUTO) 1.2 X10^3/uL (1.3-2.9); LYMPHOCYTES % (AUTO) 35.7 % (21.0-51.0); MEAN CORPUSCULAR HEMOGLOBIN 29.1 pg (27.0-34.0); MEAN CORPUSCULAR HGB CONC 33.8 g/dL (33.0-35.0); MEAN CORPUSCULAR VOLUME 86.3 fL (80.0-100.0); MEAN PLATELET VOLUME 7.6 fL (7.4-11.0); MONOCYTES # (AUTO) 0.9 x10^3/uL (0.3-0.8); MONOCYTES % (AUTO) 25.9 % (0.0-13.0); NEUTROPHILS # (AUTO) 1.2 x10^3/uL (2.2-4.8); PLATELET COUNT 206 X10^3/uL (150.0-450.0); RED BLOOD COUNT 3.12 X10^6/uL (3.5-5.4); WHITE BLOOD COUNT 3.3 X10^3/uL (3.6-10.0)
[2022-12-02 07:08] LABS: ALANINE AMINOTRANSFERASE 10 Units/L (12-78); ALBUMIN 2.4 g/dL (3.4-5.0); ALKALINE PHOSPHATASE 94 Units/L (46-116); ASPARTATE AMINO TRANSFERASE 12 Units/L (15-37); BLOOD UREA NITROGEN 5 mg/dL (7-18); CALCIUM 8.5 mg/dL (8.5-10.1); CARBON DIOXIDE 25.9 mmol/L (21-32); CHLORIDE 100 mmol/L (98-107); COR CA(FOR HYPOALB) 9.8 mg/dL (8.5-10.1); CREATININE 0.86 mg/dL (0.55-1.02); GLUCOSE 94 mg/dL (65-99); MAGNESIUM 1.6 mg/dL (2.0-2.9); POTASSIUM 4.2 mmol/L (3.5-5.1); SODIUM 132 mmol/L (136-145); TOTAL PROTEIN 5.2 g/dL (6.4-8.2); eGFR NON BLACK RACES > 60 (>60)
[2022-12-02 07:30] LABS: BAND NEUTROPHILS % 4 % (0-10); BASOPHILS % (MANUAL) 1 % (0-1); BURR CELLS 2+; PLATELET MORPHOLOGY COMMENT NORMAL (NORMAL); TARGET CELLS SLIGHT
[2022-12-02] MEDS ORDERED: CONSULT PHARMACY - POTASSIUM & MAGNESIUM XX SCH (08:00)
[2022-12-02] MEDS: LIDODERM 5% PATCH TD SCH (08:54)
[2022-12-02] MEDS: LOVENOX INJ 40 MG SYR SC SCH (08:54)
[2022-12-02] MEDS: LEVAQUIN PREMIX IV 500 MG 500 MG/100 ML BAG IV SCH (08:54)
[2022-12-02] MEDS ORDERED: MAG-OX TAB PO SCH (09:00)
[2022-12-02] MEDS ORDERED: NS 1,000 ML IV 1,000 ML with MAGNESIUM SULFATE 50% INJ VIAL 1 G IV SCH ×2 (09:00)
[2022-12-02] MEDS: VANCOMYCIN IV *PREMIX 1.25 G/250 ML BAG 1.25 G/250 ML PIGGYBACK IV SCH (10:21)
[2022-12-02] MEDS: DIOVAN TAB 160 MG PO SCH ×3 (10:51→20:45)
[2022-12-02] MEDS: PROTONIX TAB 40 MG PO SCH ×3 (10:52→20:43)
[2022-12-02] MEDS: LINZESS PO SCH ×2 (10:52→14:44)
[2022-12-02] MEDS: MICRO K EXTEN CAP 10 MEQ PO SCH ×2 (10:53→14:44)
--- NOTE | 2022-12-02 11:49 | PCM.PROG ---
Progress Note - Progress Note for Day of Date of Exam: 12/02/22 - Subjective Subjective: SUSAN IS CURRENTLY OBSERVATION STATUS FOR TREATMENT OF BILATERAL LOWER EXTREMITY CELLULITIS (FAILED OUTPATIENT TX), RIGHT LEG WOUND, DYSPHAGIA, HYPOMAGNESEMIA, HYPERLIPIDEMIA, GERD, AND HTN. TODAY, SHE IS ALERT AND ORIENTED, LYING IN BED ON MORNING ROUNDS. SHE CONTINUES TO COMPLAIN OF PAIN AND SWELLING TO BILATERAL LOWER EXTREMITIES, BUT DOES ADMIT TO SLIGHT IMPROVEMENT IN SYMPTOMS SINCE ADMISSION. ON EXAMINATION, HEART IS REGULAR IN RATE AND RHYTHM. BILATERAL LUNGS ARE CLEAR TO AUSCULTATION. ABDOMEN IS ROUND, SOFT, AND NON-TENDER WITH NORAMAL BOWEL SOUNDS NOTED IN ALL QUADRANTS. GOOD RANGE OF MOTION NOTED TO UPPER AND LOWER EXTREMITIES. THERE IS DECREASED ERYTHEMA OF BOTH LEGS. SHE CONTINUES TO HAVE 1+ PITTING EDEMA TO BLE. HER VITALS THIS MORNING ARE: 97.9-71-20-96%-148/67. LABS WERE OBTAINED. WBC 3.3, RBC 3.12, HGB 9.1, HCT 27.0, PLT COUNT 206, SODIUM 132, BUN 5, CREATININE 0.86, GLUCOSE 94, CALCIUM 8.5, MAGNESIUM 1.6, AST 12, ALT 10, ALK PHOS 94, TOTAL PROTEIN 5.2, ALBUMIN 2.4. WOUND AND BLOOD CULTURES ARE PENDING. PRELIMINARY WOUND CULTURE IS POSITIVE FOR COAGULASE NEGTIVE STAPH. 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 HE CONSULTED WITH PATIENT AND PLANS FOR AN EGD TODAY. WE ARE IN AGREEMENT WITH HIS PLANS. SHE IS CURRENTLY RECEIVING NORMAL SALINE AT 50 ML/HR, LEVAQUIN 500MG IV DAILY, VANCOMYCIN 1.25G IV DAILY, LOVENOX 40MG SC DAILY, MAG OX 400MG BID, PROVENTIL NEBS Q4H PRN. WE WILL RESUME HER HOME MEDICATIONS OF VALSARTAN, POTASSIUM CHLORIDE, FAMOTIDINE, NORCO, LINZESS, PANTOPRAZOLE, AND ATORVASTATIN. WE WILL CONTINUE WITH CURRENT PLAN OF CARE TODAY. OTHERWISE, WE WILL FOLLOW UP WITH AM LABS AND CONTINUE TO MONITOR. TIME SPENT ON CLINICAL ASSESSMENT, REVIEWING LABS AND IMAGING, DECISION MAKING, AND DOCUMENTATION GREATER THAN 45 MINUTES. - Past Medical Family Social History Past Med/Fam/Surg Hx: No changes since H&P Allergies: Allergies codeine Allergy (Unknown, Unverified 05/24/19 07:44) Reason: Drug allergy - Review of Systems ROS: No change since H&P - Vital Signs and I&O's Vital Signs: Vital Signs Temperature 97.9 F Temperature 98.1 F Pulse Rate [Right Brachial] 71 Pulse Rate [Right Brachial] 68 Respiratory Rate 20 Respiratory Rate 20 Blood Pressure [Right Arm] 148/67 Blood Pressure [Right Arm] 116/56 O2 Sat by Pulse Oximetry 96 O2 Sat by Pulse Oximetry 98 Intake and Output: Intake & Output 11/29/22 11/30/22 12/01/22 12/02/22 11:59 11:59 11:59 11:59 Intake Total 1548 / 1548 2251 / 2251 1020 / 1020 Output Total Balance 1547 / 1547 2251 / 2251 1020 / 1020 - Physical Exam Oriented: Normal. negative: Time, Person, Place, Not Oriented, Unable to test, Other Eyes: Normal Ear: Normal Nose: Normal Throat: Normal Respiratory: Generalized, Diminished Cardiovascular: Edema (BLE 2+ PITTING EDEMA ) : Normal Auscultation: Bowel Sounds: Normal Palpation: Normal Tenderness: Normal Skin: Red (BILATERAL LOWER EXTREMITIES ), Tender, Hot, Wound (RIGHT LOWER ANTERIOR LEG) Musculoskeletal: Right, Left, Leg, Swelling, Tender Psychiatric: Normal Mood Description: Calm Affect: Normal Speech Pattern: Clear, Appropriate - Laboratory and Diagnostics Result Diagrams: 12/02/22 05:23 12/02/22 05:23 Labs: 11/30/22 11:43 Leg - Right Wound Gram Stain - Final 11/30/22 11:43 Leg - Right Wound Culture - Preliminary 11/29/22 19:00 Blood Blood Culture - Preliminary 11/29/22 19:00 Blood Blood Culture - Preliminary Laboratory WBC 3.3 X10^3/uL (3.6-10.0) L 12/02/22 05: RBC 3.12 X10^6/uL (3.5-5.4) L 12/02/22 05: Hgb 9.1 g/dL (12.0-16.0) L 12/02/22 05: Hct 27.0 % (36.0-47.0) L 12/02/22 05: MCV 86.3 fL (80.0-100.0) 12/02/22 05: MCH 29.1 pg (27.0-34.0) 12/02/22 05: MCHC 33.8 g/dL (33.0-35.0) 12/02/22 05: RDW 16.0 % (11.6-16.5) 12/02/22 05:23 Plt Count 206 X10^3/uL (150.0-450.0) 12/02/22 05: Plt Count Comment Adequate (ADEQUATE) 12/02/22 05: MPV 7.6 fL (7.4-11.0) 12/02/22 05:23 Neut % (Auto) 35.0 % (42.0-75.0) L 12/02/22 05:23 Lymph % (Auto) 35.7 % (21.0-51.0) 12/02/22 05: [place] % (Auto) 25.9 % (0.0-13.0) H 12/02/22 05:23 Eos % (Auto) 2.9 % (0.9-2.9) 12/02/22 05: Baso % (Auto) 0.5 % (0.2-1.0) 12/02/22 05:23 Neut # (Auto) 1.2 x10^3/uL (2.2-4.8) L 12/02/22 05:23 Lymph # (Auto) 1.2 X10^3/uL (1.3-2.9) L 12/02/22 05:23 [place] # (Auto) 0.9 x10^3/uL (0.3-0.8) H 12/02/22 05:23 Eos # (Auto) 0.1 x10^3/uL (0.0-0.2) 12/02/22 05:23 Baso # (Auto) 0.0 X10^3/uL (0.0-0.1) 12/02/22 05: Absolute Nucleated RBC 0.2 /100WBC 12/02/22 05: Total Counted 100 12/02/22 05:23 Neutrophils % (Manual) 32 % (39-76) L 12/02/22 05:23 Band Neutrophils % 4 % (0-10) 12/02/22 05:23 Lymphocytes % (Manual) 42 % (13-43) 12/02/22 05:23 Monocytes % (Manual) 20 % (4-9) H 12/02/22 05:23 Eosinophils % (Manual) 1 % (0-6) 12/02/22 05:23 Basophils % (Manual) 1 % (0-1) 12/02/22 05:23 Plt Morphology Comment Normal (NORMAL) 12/02/22 05:23 RBC Morphology Abnormal (NORMAL) A 12/02/22 05:23 Target Cells Slight A 12/02/22 05:23 [place] Cells 2+ A 12/02/22 05:23 Sodium 132 mmol/L (136-145) L 12/02/22 05:23 Corrected Sodium TNP 12/02/22 05:23 Potassium 4.2 mmol/L (3.5-5.1) 12/02/22 05:23 Chloride 100 mmol/L (98-107) 12/02/22 05:23 Carbon Dioxide 25.9 mmol/L (21-32) 12/02/22 05:23 BUN 5 mg/dL (7-18) L 12/02/22 05:23 Creatinine 0.86 mg/dL (0.55-1.02) 12/02/22 05:23 Est GFR (MDRD) Af Amer > 60 (>60) 12/02/22 05:23 Est GFR (MDRD) Non-Af > 60 (>60) 12/02/22 05:23 Glucose 94 mg/dL (65-99) 12/02/22 05:23 Calcium 8.5 mg/dL (8.5-10.1) 12/02/22 05:23 Corrected Calcium 9.8 mg/dL (8.5-10.1) 12/02/22 05:23 Magnesium 1.6 mg/dL (2.0-2.9) L 12/02/22 05:23 Total Bilirubin 0.50 mg/dL (0.2-1.0) 12/02/22 05:23 AST 12 Units/L (15-37) L 12/02/22 05:23 ALT 10 Units/L (12-78) L 12/02/22 05:23 Alkaline Phosphatase 94 Units/L (46-116) 12/02/22 05:23 Total Protein 5.2 g/dL (6.4-8.2) L 12/02/22 05:23 Albumin 2.4 g/dL (3.4-5.0) L 12/02/22 05:23 Globulin 2.8 g/dL (2.5-4.5) 12/02/22 05:23 Albumin/Globulin Ratio 0.9 Ratio (1.1-2.1) L 12/02/22 05:23 - Plan (1) Bilateral lower leg cellulitis Status: Acute Plan: NORMAL SALINE AT 50 ML/HR, LEVAQUIN 500MG IV DAILY, VANCOMYCIN 1.25G IV DAILY, LOVENOX 40MG SC DAILY, MAG OX 400MG BID, PROVENTIL NEBS Q4H PRN. WE WILL RESUME HER HOME MEDICATIONS OF VALSARTAN, POTASSIUM CHLORIDE, FAMOTIDINE, NORCO, LINZESS, PANTOPRAZOLE, AND ATORVASTATIN. (2) Wound of right leg Status: Acute Qualifiers: Encounter type: initial encounter Qualified Code(s): S81.801A - Unspecified open wound, right lower leg, initial encounter (3) Dysphagia Status: Acute Qualifiers: Dysphagia type: unspecified Qualified Code(s): R13.10 - Dysphagia, unspecified Plan: CONSULT GASTROENTEROLOGY (4) Hypomagnesemia Status: Acute (5) Hyperlipidemia Status: Chronic Qualifiers: Hyperlipidemia type: mixed hyperlipidemia (6) GERD (gastroesophageal reflux disease) Status: Chronic Qualifiers: Esophagitis presence: esophagitis presence not specified Qualified Code(s): K21.9 - Gastro-esophageal reflux disease without esophagitis (7) HTN (hypertension) Status: Chronic Qualifiers: Hypertension type: primary hypertension
[2022-12-02] MEDS ORDERED: LR 1,000 ML IV 1,000 ML IV ONE (13:19)
[2022-12-02] MEDS ORDERED: DIPRIVAN VIAL 20 ML ONE (13:26)
[2022-12-02] MEDS: NORCO 10/325 TAB PO PRN (16:20)
[2022-12-02] MEDS: LIPITOR TAB 40 MG PO SCH (20:43)
[2022-12-02] MEDS: PEPCID TAB 40 MG PO SCH (20:43)
[2022-12-03] MEDS: NORCO 10/325 TAB PO PRN ×2 (02:10→09:11)
[2022-12-03] MEDS: ZOFRAN INJ 4 MG VIAL IVP PRN (04:10)
[2022-12-03 06:07] LABS: BASOPHILS % (AUTO) 0.4 % (0.2-1.0); EOSINOPHILS % (AUTO) 0.5 % (0.9-2.9); HEMATOCRIT 28.9 % (36.0-47.0); HEMOGLOBIN 9.8 g/dL (12.0-16.0); LYMPHOCYTES # (AUTO) 0.9 X10^3/uL (1.3-2.9); LYMPHOCYTES % (AUTO) 12.7 % (21.0-51.0); MEAN CORPUSCULAR HEMOGLOBIN 29.6 pg (27.0-34.0); MEAN PLATELET VOLUME 7.7 fL (7.4-11.0); MONOCYTES # (AUTO) 1.1 x10^3/uL (0.3-0.8); MONOCYTES % (AUTO) 14.9 % (0.0-13.0); NEUTROPHILS # (AUTO) 5.3 x10^3/uL (2.2-4.8); NEUTROPHILS % (AUTO) 71.5 % (42.0-75.0); PLATELET COUNT 238 X10^3/uL (150.0-450.0); RED BLOOD COUNT 3.32 X10^6/uL (3.5-5.4); RED CELL DISTRIBUTION WIDTH 15.7 % (11.6-16.5); WHITE BLOOD COUNT 7.4 X10^3/uL (3.6-10.0)
[2022-12-03 06:34] LABS: ALANINE AMINOTRANSFERASE 11 Units/L (12-78); ALBUMIN 2.5 g/dL (3.4-5.0); ALKALINE PHOSPHATASE 94 Units/L (46-116); ASPARTATE AMINO TRANSFERASE 29 Units/L (15-37); BLOOD UREA NITROGEN 5 mg/dL (7-18); CALCIUM 8.5 mg/dL (8.5-10.1); CARBON DIOXIDE 26.7 mmol/L (21-32); CHLORIDE 100 mmol/L (98-107); COR CA(FOR HYPOALB) 9.7 mg/dL (8.5-10.1); COR NA(FOR HYPERGLY) 132 mmol/L (136-145); CREATININE 0.85 mg/dL (0.55-1.02); GLUCOSE 118 mg/dL (65-99); POTASSIUM 4.1 mmol/L (3.5-5.1); SODIUM 132 mmol/L (136-145); TOTAL PROTEIN 5.5 g/dL (6.4-8.2); eGFR NON BLACK RACES > 60 (>60)
[2022-12-03] MEDS ORDERED: PHARMACY COMMENT IV ONE (08:30)
[2022-12-03] MEDS: LINZESS PO SCH (09:00)
[2022-12-03] MEDS: LOVENOX INJ 40 MG SYR SC SCH (09:00)
[2022-12-03] MEDS: LEVAQUIN PREMIX IV 500 MG 500 MG/100 ML BAG IV SCH (09:00)
[2022-12-03] MEDS: PROTONIX TAB 40 MG PO SCH (09:00)
[2022-12-03] MEDS: MICRO K EXTEN CAP 10 MEQ PO SCH (09:00)
[2022-12-03] MEDS: DIOVAN TAB 160 MG PO SCH (09:00)
[2022-12-03] MEDS: LIDODERM 5% PATCH TD SCH (09:01)
[2022-12-03 09:51] LABS: CREATININE 0.75 mg/dL (0.55-1.02); VANCOMYCIN,TROUGH 13.7 ug/mL (15-20)
[2022-12-03] MEDS: VANCOMYCIN IV *PREMIX 1.25 G/250 ML BAG 1.25 G/250 ML PIGGYBACK IV SCH (10:48)
[2022-12-03 13:14] VITALS: BP 125/59; PULSE 82; TEMP 98.7; O2SAT 96
[2022-12-03 13:24] VITALS: RESP 18
== END 2022-12-03 13:35 | disposition home health service (06) ==
LOC: MED/SURG → INTOOBSV 17:54 → OBSVTOIN 17:54
PROVIDERS: ADMIT Internal Medicine; ATTEND Internal Medicine
DX: K22.2 Esophageal obstruction; E78.2 Mixed hyperlipidemia; D50.8 Other iron deficiency anemias; K21.00 Gastro-esophageal reflux disease with esophagitis, without bleeding; X58.XXXA Exposure to other specified factors, initial encounter; K21.9 Gastro-esophageal reflux disease without esophagitis; I10 Essential (primary) hypertension; K29.00 Acute gastritis without bleeding; R13.11 Dysphagia, oral phase; L03.116 Cellulitis of left lower limb; M19.90 Unspecified osteoarthritis, unspecified site; R60.0 Localized edema; E83.42 Hypomagnesemia; L03.115 Cellulitis of right lower limb; S81.801A Unspecified open wound, right lower leg, initial encounter; Z87.11 Personal history of peptic ulcer disease; I25.10 Atherosclerotic heart disease of native coronary artery without angina pectoris

== ENCOUNTER 2023-01-26 08:49 | Observation (INO) ==
[2023-01-26 10:53] LABS: BASOPHILS % (AUTO) 0.7 % (0.2-1.0); EOSINOPHILS # (AUTO) 0.1 x10^3/uL (0.0-0.2); EOSINOPHILS % (AUTO) 2.3 % (0.9-2.9); HEMATOCRIT 28.2 % (36.0-47.0); HEMOGLOBIN 9.6 g/dL (12.0-16.0); LYMPHOCYTES % (AUTO) 29.2 % (21.0-51.0); MEAN CORPUSCULAR HEMOGLOBIN 28.1 pg (27.0-34.0); MEAN CORPUSCULAR HGB CONC 33.9 g/dL (33.0-35.0); MEAN CORPUSCULAR VOLUME 82.8 fL (80.0-100.0); MEAN PLATELET VOLUME 7.2 fL (7.4-11.0); MONOCYTES # (AUTO) 0.8 x10^3/uL (0.3-0.8); MONOCYTES % (AUTO) 25.2 % (0.0-13.0); NEUTROPHILS # (AUTO) 1.4 x10^3/uL (2.2-4.8); NEUTROPHILS % (AUTO) 42.6 % (42.0-75.0); PLATELET COUNT 274 X10^3/uL (150.0-450.0); RED CELL DISTRIBUTION WIDTH 14.6 % (11.6-16.5); WHITE BLOOD COUNT 3.4 X10^3/uL (3.6-10.0)
[2023-01-26 11:01] LABS: ALANINE AMINOTRANSFERASE 11 Units/L (12-78); ALBUMIN 2.8 g/dL (3.4-5.0); ALKALINE PHOSPHATASE 104 Units/L (46-116); ASPARTATE AMINO TRANSFERASE 14 Units/L (15-37); BLOOD UREA NITROGEN 6 mg/dL (7-18); CALCIUM 8.7 mg/dL (8.5-10.1); CARBON DIOXIDE 32.4 mmol/L (21-32); CHLORIDE 102 mmol/L (98-107); COR CA(FOR HYPOALB) 9.7 mg/dL (8.5-10.1); GLUCOSE 98 mg/dL (65-99); POTASSIUM 3.9 mmol/L (3.5-5.1); SODIUM 141 mmol/L (136-145); TOTAL PROTEIN 6.5 g/dL (6.4-8.2); eGFR NON BLACK RACES > 60 (>60)
[2023-01-26] MEDS: LASIX IVP SCH ×2 (11:17→17:17)
[2023-01-26] MEDS: ZOSYN VIAL 3.375 GRAMS 3.375 G in NS 100 ML IV 100 ML IV SCH ×3 (11:17→21:16)
[2023-01-26] MEDS: NS 1,000 ML IV 1,000 ML IV SCH ×2 (11:20→22:14)
[2023-01-26 11:28] LABS: PLATELET MORPHOLOGY COMMENT NORMAL (NORMAL)
[2023-01-26] MEDS ORDERED: APRESOLINE INJ 20 MG VIAL IVP ONE (13:23)
[2023-01-26] MEDS: CATAPRES TAB 0.1 MG PO ONE (13:53)
--- NOTE | 2023-01-26 14:06 | EKG ---
Test Reason : HIGH BP Blood Pressure : */* mmHG Vent. Rate : 89 BPM Atrial Rate : 89 BPM P-R Int : 136 ms QRS Dur : 124 ms QT Int : 408 ms P-R-T Axes : 44 -49 -26 degrees QTc Int : 496 ms Sinus rhythm with premature atrial complexes Possible Left atrial enlargement Right bundle branch block Left anterior fascicular block Bifascicular block Minimal voltage criteria for LVH, may be normal variant ( R in aVL ) Septal infarct , age undetermined T wave abnormality, consider lateral ischemia Abnormal ECG No previous ECGs available Confirmed by Guillaume Argueta MD ([id number]) on 01/26/2023 2:34:57 PM Referred By: Confirmed By: Guillaume Argueta MD
[2023-01-26] MEDS ORDERED: ASTELIN NASAL SPRAY ENOSTRIL ONE (14:58)
[2023-01-26] MEDS: ASTELIN NASAL SPRAY ENOSTRIL SCH ×2 (15:20→20:23)
[2023-01-26] MEDS: NEURONTIN CAP 300 MG PO SCH ×2 (15:20→21:16)
[2023-01-26] MEDS: GENTAMICIN TOPICAL OINT TOP SCH ×2 (15:21→20:23)
[2023-01-26] MEDS: FOLIC ACID TAB 1 MG PO SCH (15:21)
[2023-01-26] MEDS: DIOVAN TAB 160 MG PO SCH ×2 (15:21→20:23)
[2023-01-26] MEDS: PROTONIX TAB 40 MG PO SCH ×2 (15:22→20:23)
[2023-01-26] MEDS: LINZESS PO SCH (15:22)
[2023-01-26] MEDS: MICRO K EXTEN CAP 10 MEQ PO SCH (15:22)
[2023-01-26] MEDS: TYLENOL 500 MG TAB EXTRA STRENGTH PO PRN (19:22)
[2023-01-26] MEDS: LIPITOR TAB 40 MG PO SCH (20:23)
[2023-01-26] MEDS: PEPCID TAB 40 MG PO SCH (20:23)
[2023-01-27] MEDS: NEURONTIN CAP 300 MG PO SCH ×3 (05:17→22:00)
[2023-01-27] MEDS: ZOSYN VIAL 3.375 GRAMS 3.375 G in NS 100 ML IV 100 ML IV SCH ×3 (05:17→22:00)
[2023-01-27 05:21] LABS: BASOPHILS % (AUTO) 0.7 % (0.2-1.0); EOSINOPHILS # (AUTO) 0.2 x10^3/uL (0.0-0.2); EOSINOPHILS % (AUTO) 4.7 % (0.9-2.9); HEMOGLOBIN 8.8 g/dL (12.0-16.0); LYMPHOCYTES # (AUTO) 1.2 X10^3/uL (1.3-2.9); LYMPHOCYTES % (AUTO) 35.5 % (21.0-51.0); MEAN CORPUSCULAR HEMOGLOBIN 27.9 pg (27.0-34.0); MEAN CORPUSCULAR HGB CONC 33.7 g/dL (33.0-35.0); MEAN CORPUSCULAR VOLUME 82.6 fL (80.0-100.0); MEAN PLATELET VOLUME 7.4 fL (7.4-11.0); MONOCYTES # (AUTO) 0.8 x10^3/uL (0.3-0.8); MONOCYTES % (AUTO) 24.4 % (0.0-13.0); NEUTROPHILS # (AUTO) 1.1 x10^3/uL (2.2-4.8); NEUTROPHILS % (AUTO) 34.7 % (42.0-75.0); PLATELET COUNT 258 X10^3/uL (150.0-450.0); RED BLOOD COUNT 3.15 X10^6/uL (3.5-5.4); RED CELL DISTRIBUTION WIDTH 14.7 % (11.6-16.5); WHITE BLOOD COUNT 3.3 X10^3/uL (3.6-10.0)
[2023-01-27 05:29] LABS: ALANINE AMINOTRANSFERASE 9 Units/L (12-78); ALBUMIN 2.4 g/dL (3.4-5.0); ALKALINE PHOSPHATASE 87 Units/L (46-116); ASPARTATE AMINO TRANSFERASE 14 Units/L (15-37); BLOOD UREA NITROGEN 6 mg/dL (7-18); CALCIUM 8.1 mg/dL (8.5-10.1); CARBON DIOXIDE 35.6 mmol/L (21-32); CHLORIDE 104 mmol/L (98-107); COR CA(FOR HYPOALB) 9.4 mg/dL (8.5-10.1); CREATININE 1.05 mg/dL (0.55-1.02); GLUCOSE 93 mg/dL (65-99); POTASSIUM 3.5 mmol/L (3.5-5.1); SODIUM 142 mmol/L (136-145); TOTAL PROTEIN 5.6 g/dL (6.4-8.2); eGFR NON BLACK RACES 53 (>60)
[2023-01-27 05:51] LABS: BAND NEUTROPHILS % 2 % (0-10); BURR CELLS PRESENT; PLATELET MORPHOLOGY COMMENT NORMAL (NORMAL); TARGET CELLS PRESENT
[2023-01-27] MEDS ORDERED: CONSULT PHARMACY - POTASSIUM & MAGNESIUM XX SCH (07:00)
[2023-01-27] MEDS: ASTELIN NASAL SPRAY ENOSTRIL SCH ×2 (09:16→20:48)
[2023-01-27] MEDS: MICRO K EXTEN CAP 10 MEQ PO SCH (09:18)
[2023-01-27] MEDS: PROTONIX TAB 40 MG PO SCH ×2 (09:18→20:47)
[2023-01-27] MEDS: MAG-OX TAB PO SCH ×4 (09:19→12:30)
[2023-01-27] MEDS: LASIX IVP SCH (09:19)
[2023-01-27] MEDS: LINZESS PO SCH (09:19)
[2023-01-27] MEDS: FOLIC ACID TAB 1 MG PO SCH (09:19)
[2023-01-27] MEDS: GENTAMICIN TOPICAL OINT TOP SCH ×2 (09:19→20:48)
[2023-01-27] MEDS: DIOVAN TAB 160 MG PO SCH ×2 (09:20→20:47)
--- NOTE | 2023-01-27 11:35 | DR.UPDATE ---
H&P Update Prescription drug monitoring program results: PDMP reviewed and no concerns identified H&P Reviewed: Yes Any changes to H&P?: Yes Changes noted:: WAS ADMITTED TO THE HOSPITAL OBSERVATION STATUS FOR FURTHER EVALUATION AND TREATMENT OF BILATERAL LOWER EXTREMITY CELLULITIS, CHRONIC VENOUS INSUFFICIENCY, AND LOWER EXTREMITY EDEMA. SHE HAS RECENTLY TAKEN BACTRIM DS BID X 10 DAYS, AUGMENTIN 875/125 BID X 10 DAYS, AND CIPRO 750MG BID WITHOUT IMPROVEMENT IN SYMPTOMS. SYMPTOMS HAVE BEEN ONGOING SINCE SHE DROPPED A WATER BOTTLE ON HER LEG IN NOVEMBER. ON ADMISSION, HER VITALS WERE: 98.4-94-18-98%-194/84. LABS WERE OBTAINED. WBC 3.4, RBC 3.40, HGB 9.6, HCT 28.2, PLT COUNT 274, SODIUM 141, POTASSIUM 3.9, CHLORIDE 102, CARBON DIOXIDE 32.4, BUN 6, CREATININE 0.90, GLUCOSE 98, CALCIUM 8.7, TOTAL BILI 0.90, AST 14, ALT 11, ALK PHOS 104, TOTAL PROTEIN 6.5, ALBUMIN 2.8. BLOOD CULTURES WERE SET UP. ON ADMISSION, SHE WAS STARTED ON NORMAL SALINE AT KVO, ZOSYN 3.375G IV TID, LASIX 20MG IV BID, LOVENOX DAILY. HER HOME MEDICATIONS OF TYLENOL, ATORVASTATIN, AZELASTINE, FAMOTIDINE, FOLIC ACID, GABAPENTIN, GENTAMICIN OINTMENT, NORCO, LINZESS, MAG OX, METHOTREXATE, PROTONIX, POTASSIUM CHLORIDE, AND DIOVAN WERE RESUMED. WE WILL OBTAIN BILATERAL LOWER EXTREMITY VENOUS DOPPLERS. OTHERWISE, WE WILL FOLLOW UP WITH AM LABS AND CONTINUE TO MONITOR. TIME SPENT ON CLINICAL ASSESSMENT, REVIEWING LABS AND IMAGING, DECISION MAKING, AND DOCUMENTATION GREATER THAN 75 MINUTES. Patient was examined?: Yes Vital Signs: Temp Pulse Resp BP Pulse Ox O2 Del Method 01/27/23 08:00 97.8 F 78 20 126/58 98 Room Air 01/27/23 07:00 Room Air 01/27/23 04:00 98.2 F 70 20 118/60 97 Room Air 01/27/23 00:00 98.2 F 71 20 140/65 98 Room Air 01/26/23 20:22 19 01/26/23 20:00 98 F 67 20 132/61 98 Room Air 01/26/23 19:00 Room Air 01/26/23 19:22 18 01/26/23 16:00 98.1 F 81 20 182/80 97 Room Air 01/26/23 15:00 164/69 01/26/23 14:40 144/66 01/26/23 14:30 146/67 01/26/23 14:20 145/66 01/26/23 14:10 150/88 01/26/23 14:00 147/67 01/26/23 13:30 191/82 01/26/23 13:22 199/88 01/26/23 13:01 Room Air 01/26/23 11:58 98.2 F 87 18 213/96 98 Room Air 01/26/23 10:00 98.4 F 94 H 18 194/84 98 Room Air
[2023-01-27] MEDS ORDERED: K-DUR TAB 20 MEQ PO ONE (12:00)
[2023-01-27] MEDS: NS 1,000 ML IV 1,000 ML IV SCH (12:30)
[2023-01-27] MEDS ORDERED: CATAPRES TAB 0.1 MG PO ONE (13:55)
[2023-01-27] MEDS: CATAPRES TAB 0.1 MG PO ONE (14:13)
--- NOTE | 2023-01-27 14:49 | VAS ---
EXAM:LOWER EXT VENOUS, BILATERALHISTORY:; VINAY LE SWELLING evaluate venous thrombosis.COMPARISON:Right lower extremity DVT ultrasound 11/25/2022TECHNIQUE:62 images made by the certified activities director. Bhat scale and color flow Doppler images of the right and left lower extremity deep venous system were obtained.FINDINGS:There was normal compressibility and flow characteristics from the common femoral vein to the popliteal vein. No evidence of deep venous thrombosis.Proximal profunda femoral vein was patent with no thrombus.Proximal greater saphenous vein was patent with no superficial thrombophlebitis.Posterior tibial veins were patent with no thrombosis.Incidental finding includes edema in the subcutaneous tissue of the right calf in the left calf.IMPRESSION:1. No lower extremity venous thrombosis2. Bilateral subcutaneous edemaTHIS IS AN ELECTRONICALLY VERIFIED FINAL REPORT01/27/2023 2:38 PM - Electronically signed by South Gill MD
[2023-01-27] MEDS: PEPCID TAB 40 MG PO SCH (20:47)
[2023-01-27] MEDS: LIPITOR TAB 40 MG PO SCH (20:47)
[2023-01-28] MEDS: NS 1,000 ML IV 1,000 ML IV SCH (01:00)
[2023-01-28] MEDS: TYLENOL 500 MG TAB EXTRA STRENGTH PO PRN (01:43)
[2023-01-28] MEDS: ZOSYN VIAL 3.375 GRAMS 3.375 G in NS 100 ML IV 100 ML IV SCH ×3 (05:20→22:00)
[2023-01-28] MEDS: NEURONTIN CAP 300 MG PO SCH ×3 (05:20→22:00)
[2023-01-28 05:58] LABS: BASOPHILS % (AUTO) 0.5 % (0.2-1.0); EOSINOPHILS # (AUTO) 0.1 x10^3/uL (0.0-0.2); EOSINOPHILS % (AUTO) 2.7 % (0.9-2.9); HEMATOCRIT 26.2 % (36.0-47.0); HEMOGLOBIN 8.8 g/dL (12.0-16.0); LYMPHOCYTES # (AUTO) 1.3 X10^3/uL (1.3-2.9); LYMPHOCYTES % (AUTO) 28.5 % (21.0-51.0); MEAN CORPUSCULAR HEMOGLOBIN 27.8 pg (27.0-34.0); MEAN CORPUSCULAR HGB CONC 33.7 g/dL (33.0-35.0); MEAN CORPUSCULAR VOLUME 82.6 fL (80.0-100.0); MEAN PLATELET VOLUME 7.3 fL (7.4-11.0); MONOCYTES % (AUTO) 21.4 % (0.0-13.0); NEUTROPHILS # (AUTO) 2.1 x10^3/uL (2.2-4.8); NEUTROPHILS % (AUTO) 46.9 % (42.0-75.0); PLATELET COUNT 254 X10^3/uL (150.0-450.0); RED BLOOD COUNT 3.17 X10^6/uL (3.5-5.4); RED CELL DISTRIBUTION WIDTH 14.5 % (11.6-16.5); WHITE BLOOD COUNT 4.5 X10^3/uL (3.6-10.0)
[2023-01-28 06:13] LABS: BURR CELLS 1+; PLATELET MORPHOLOGY COMMENT NORMAL (NORMAL); TARGET CELLS SLIGHT
[2023-01-28 06:15] LABS: ALANINE AMINOTRANSFERASE 9 Units/L (12-78); ALBUMIN 2.4 g/dL (3.4-5.0); ALKALINE PHOSPHATASE 89 Units/L (46-116); ASPARTATE AMINO TRANSFERASE 14 Units/L (15-37); BLOOD UREA NITROGEN 8 mg/dL (7-18); CARBON DIOXIDE 31.5 mmol/L (21-32); CHLORIDE 104 mmol/L (98-107); COR CA(FOR HYPOALB) 9.3 mg/dL (8.5-10.1); CREATININE 1.16 mg/dL (0.55-1.02); GLUCOSE 94 mg/dL (65-99); POTASSIUM 3.6 mmol/L (3.5-5.1); SODIUM 141 mmol/L (136-145); TOTAL PROTEIN 5.7 g/dL (6.4-8.2); eGFR NON BLACK RACES 47 (>60)
[2023-01-28] MEDS ORDERED: CONSULT PHARMACY - POTASSIUM & MAGNESIUM XX SCH ×2 (07:00→08:00)
[2023-01-28] MEDS: LASIX IVP SCH ×3 (07:55→16:59)
--- NOTE | 2023-01-28 08:58 | PCM.PROG ---
Progress Note - Progress Note for Day of Date of Exam: 01/27/23 - Subjective Subjective: IS CURRENTLY OBSERVATION STATUS FOR TREATMENT OF BILATERAL LOWER EXTREMITY CELLULITIS, LOWER EXTREMITY EDEMA, AND CHRONIC VENOUS INSUFFICIENCY. SHE HAS A PMH OF HTN, HYPERLIPIDEMIA, GERD, ANEMIA, AND OSTEOARTHRITIS. SHE HAS HAD AN UNEVENTFUL NIGHT. SHE CONTINUES TO COMPLAIN OF SOME LOWER EXTREMITY SWELLING THIS MORNING. ON EXAMINATION, PATIENT IS ALERT AND ORIENTED, SITTING ON THE SIDE OF THE BED ON MORNING ROUNDS. HEART IS REGULAR IN RATE AND RHYTHM. BILATERAL LUNGS ARE CLEAR TO AUSCULTATION. ABDOMEN IS ROUND, SOFT, AND NON-TENDER WITH NORMAL BOWEL SOUNDS NOTED IN ALL QUADRANTS. BILATERAL LOWER EXTREMITIES ARE NOTED WITH 1+ PITTING EDEMA THIS MORNING. GOOD RANGE OF MOTION NOTED TO ALL EXTREMITIES. HER VITALS THIS MORNING ARE: 97.5-73-20-96%-184/90. LABS WERE OBTAINED. WBC 3.3, RBC 3.15, HGB 8.8, HCT 26.0, SODIUM 142, POTASSIUM 3.5, CHLORIDE 104, BUN 6, CREATININE 1.05, GLUCOSE 93, CALCIUM 8.1, MAGNESIUM 1.4, AST 14, ALT 9, ALK PHOS 87, TOTAL PROTEIN 5.6, ALBUMIN 2.4. BLOOD CULTURES ARE PENDING. WE OBTAINED A LOWER EXTREMITY VENOUS DOPPLER TODAY. IT REVEALED: 1. No lower extremity venous thrombosis 2. Bilateral subcutaneous edema. SHE IS CURRENTLY RECEIVING NORMAL SALINE AT KVO, ZOSYN 3.375G IV TID, LASIX 20MG IV BID, LOVENOX DAILY. HER HOME MEDICATIONS OF TYLENO L, ATORVASTATIN, AZELASTINE, FAMOTIDINE, FOLIC ACID, GABAPENTIN, GENTAMICIN OINTMENT, NORCO, LINZESS, MAG OX, METHOTREXATE, PROTONIX, POTASSIUM CHLORIDE, AND DIOVAN WERE RESUMED. WE WILL ORDER COMPRESSION WRAPS OF THE LOWER EXTREMITIES TODAY. OTHERWISE, WE WILL CONTINUE WITH CURRENT PLAN OF CARE. WE PLAN TO FOLLOW UP WITH AM LABS AND CONTINUE TO MONITOR. TIME SPENT ON CLINICAL ASSESSMENT, REVIEWING LABS AND IMAGING, DECISION MAKING, AND DOCUMENTATION GREATER THAN 45 MINUTES. - Past Medical Family Social History Past Med/Fam/Surg Hx: No changes since H&P Allergies: Allergies codeine Allergy (Unknown, Verified 01/28/23 00:42) Reason: Drug allergy - Review of Systems ROS: No change since H&P - Vital Signs and I&O's Vital Signs: Vital Signs Temperature 97.6 F Temperature 98.9 F Pulse Rate [Left Brachial] 77 Pulse Rate [Left Brachial] 64 Respiratory Rate 20 Respiratory Rate 18 Respiratory Rate 18 Respiratory Rate 20 Blood Pressure [Left Arm] 177/83 Blood Pressure [Left Arm] 102/51 O2 Sat by Pulse Oximetry 96 O2 Sat by Pulse Oximetry 99 Intake and Output: Intake & Output 01/25/23 01/26/23 01/27/23 01/28/23 11:59 11:59 11:59 11:59 Intake Total 1067 / 1067 1340 / 1340 Balance 1067 / 1067 1340 / 1340 - Physical Exam Oriented: Normal Eyes: Normal Ear: Normal Nose: Normal Throat: Normal Respiratory: Normal Cardiovascular: Edema (BLE 1+ PITTING EDEMA ) : Normal Auscultation: Bowel Sounds: Normal Palpation: Normal Tenderness: Normal Skin: Red, Tender (BILATERAL LOWER EXTREMITIES ), Hot Musculoskeletal: Normal Psychiatric: Normal Mood Description: Calm Affect: Normal Speech Pattern: Clear, Appropriate - Laboratory and Diagnostics Result Diagrams: 01/28/23 05:28 01/28/23 05:28 Labs: Laboratory WBC 4.5 X10^3/uL (3.6-10.0) 01/28/23 05:28 RBC 3.17 X10^6/uL (3.5-5.4) L 01/28/23 05:28 Hgb 8.8 g/dL (12.0-16.0) L 01/28/23 05:28 Hct 26.2 % (36.0-47.0) L 01/28/23 05:28 MCV 82.6 fL (80.0-100.0) 01/28/23 05:28 MCH 27.8 pg (27.0-34.0) 01/28/23 05:28 MCHC 33.7 g/dL (33.0-35.0) 01/28/23 05:28 RDW 14.5 % (11.6-16.5) 01/28/23 05:28 Plt Count 254 X10^3/uL (150.0-450.0) 01/28/23 05:28 Plt Count Comment Adequate (ADEQUATE) 01/28/23 05:28 MPV 7.3 fL (7.4-11.0) L 01/28/23 05:28 Neut % (Auto) 46.9 % (42.0-75.0) 01/28/23 05:28 Lymph % (Auto) 28.5 % (21.0-51.0) 01/28/23 05:28 [place] % (Auto) 21.4 % (0.0-13.0) H 01/28/23 05:28 Eos % (Auto) 2.7 % (0.9-2.9) 01/28/23 05:28 Baso % (Auto) 0.5 % (0.2-1.0) 01/28/23 05:28 Neut # (Auto) 2.1 x10^3/uL (2.2-4.8) L 01/28/23 05:28 Lymph # (Auto) 1.3 X10^3/uL (1.3-2.9) 01/28/23 05:28 [place] # (Auto) 1.0 x10^3/uL (0.3-0.8) H 01/28/23 05:28 Eos # (Auto) 0.1 x10^3/uL (0.0-0.2) 01/28/23 05:28 Baso # (Auto) 0.0 X10^3/uL (0.0-0.1) 01/28/23 05:28 Absolute Nucleated RBC 0.1 /100WBC 01/28/23 05:28 Total Counted 100 01/28/23 05:28 Neutrophils % (Manual) 56 % (39-76) 01/28/23 05:28 Band Neutrophils % 2 % (0-10) 01/27/23 04:46 Lymphocytes % (Manual) 24 % (13-43) 01/28/23 05:28 Monocytes % (Manual) 17 % (4-9) H 01/28/23 05:28 Eosinophils % (Manual) 3 % (0-6) 01/28/23 05:28 Plt Morphology Comment Normal (NORMAL) 01/28/23 05:28 RBC Morphology Abnormal (NORMAL) A 01/28/23 05:28 Target Cells Slight A 01/28/23 05:28 Ibeth Cells 1+ A 01/28/23 05:28 Acanthocytes (Spur) Present 01/27/23 04:46 Sodium 141 mmol/L (136-145) 01/28/23 05:28 Corrected Sodium TNP 01/28/23 05:28 Potassium 3.6 mmol/L (3.5-5.1) 01/28/23 05:28 Chloride 104 mmol/L (98-107) 01/28/23 05:28 Carbon Dioxide 31.5 mmol/L (21-32) 01/28/23 05:28 BUN 8 mg/dL (7-18) 01/28/23 05:28 Creatinine 1.16 mg/dL (0.55-1.02) H 01/28/23 05:28 Est GFR (MDRD) Af Amer 57 (>60) L 01/28/23 05:28 Est GFR (MDRD) Non-Af 47 (>60) L 01/28/23 05:28 Glucose 94 mg/dL (65-99) 01/28/23 05:28 Calcium 8.0 mg/dL (8.5-10.1) L 01/28/23 05:28 Corrected Calcium 9.3 mg/dL (8.5-10.1) 01/28/23 05:28 Magnesium 1.5 mg/dL (2.0-2.9) L 01/28/23 05:28 Total Bilirubin 0.30 mg/dL (0.2-1.0) 01/28/23 05:28 AST 14 Units/L (15-37) L 01/28/23 05:28 ALT 9 Units/L (12-78) L 01/28/23 05:28 Alkaline Phosphatase 89 Units/L (46-116) 01/28/23 05:28 Total Protein 5.7 g/dL (6.4-8.2) L 01/28/23 05:28 Albumin 2.4 g/dL (3.4-5.0) L 01/28/23 05:28 Globulin 3.3 g/dL (2.5-4.5) 01/28/23 05:28 Albumin/Globulin Ratio 0.7 Ratio (1.1-2.1) L 01/28/23 05:28 - Plan (1) Bilateral lower leg cellulitis Status: Acute Plan: COMPRESSION WRAPS, NORMAL SALINE AT KVO, ZOSYN 3.375G IV TID, LASIX 20MG IV BID, LOVENOX DAILY. RESUME HOME MEDS (2) Lower extremity edema Status: Acute (3) Chronic venous insufficiency Status: Acute (4) Anemia Status: Acute Qualifiers: Anemia type: iron deficiency Iron deficiency anemia type: unspecified iron deficiency Qualified Code(s): D50.9 - Iron deficiency anemia, unspecified Plan: MONITOR H&H, RESUME FOLIC ACID (5) GERD (gastroesophageal reflux disease) Status: Chronic Qualifiers: Esophagitis presence: esophagitis presence not specified Plan: CONTINUE FAMOTIDINE AND PANTOPRAZOLE (6) HTN (hypertension) Status: Chronic Qualifiers: Hypertension type: primary hypertension Plan: CONTINUE DIOVAN AND HYPERTENSIVE PROTOCOL (7) Hyperlipidemia Status: Chronic Qualifiers: Hyperlipidemia type: mixed hyperlipidemia Plan: CONTINUE ATORVASTATIN
[2023-01-28] MEDS: DIOVAN TAB 160 MG PO SCH ×2 (09:25→20:40)
[2023-01-28] MEDS: ASTELIN NASAL SPRAY ENOSTRIL SCH ×2 (09:25→20:41)
[2023-01-28] MEDS: FOLIC ACID TAB 1 MG PO SCH (09:26)
[2023-01-28] MEDS: PROTONIX TAB 40 MG PO SCH ×2 (09:26→20:40)
[2023-01-28] MEDS: GENTAMICIN TOPICAL OINT TOP SCH ×2 (09:26→20:41)
[2023-01-28] MEDS: NS + KCL 20 MEQ/L 1,000 ML with MAGNESIUM SULFATE 50% INJ VIAL 1 G IV SCH ×2 (09:27)
[2023-01-28] MEDS: MAG-OX TAB PO SCH ×2 (09:30→10:29)
[2023-01-28] MEDS: MICRO K EXTEN CAP 10 MEQ PO SCH (09:30)
[2023-01-28] MEDS: LINZESS PO SCH ×2 (09:30→09:36)
--- NOTE | 2023-01-28 09:48 | PCM.PROG ---
Progress Note - Progress Note for Day of Date of Exam: 01/28/23 - Subjective Subjective: IS CURRENTLY OBSERVATION STATUS FOR TREATMENT OF BILATERAL LOWER EXTREMITY CELLULITIS, LOWER EXTREMITY EDEMA, AND CHRONIC VENOUS INSUFFICIENCY. SHE HAS A PMH OF HTN, HYPERLIPIDEMIA, GERD, ANEMIA, AND OSTEOARTHRITIS. SHE HAS HAD AN UNEVENTFUL NIGHT. SHE CONTINUES TO COMPLAIN OF SOME LOWER EXTREMITY SWELLING THIS MORNING. ON EXAMINATION, PATIENT IS ALERT AND ORIENTED, SITTING ON THE SIDE OF THE BED ON MORNING ROUNDS. HEART IS REGULAR IN RATE AND RHYTHM. BILATERAL LUNGS ARE CLEAR TO AUSCULTATION. ABDOMEN IS ROUND, SOFT, AND NON-TENDER WITH NORMAL BOWEL SOUNDS NOTED IN ALL QUADRANTS. BILATERAL LOWER EXTREMITIES ARE NOTED WITH 1+ PITTING EDEMA THIS MORNING. GOOD RANGE OF MOTION NOTED TO ALL EXTREMITIES. HER VITALS THIS MORNING ARE: 97.6-77-20-96%-177/83. LABS WERE OBTAINED. WBC 4.5, RBC 3.17, HGB 8.8, HCT 26.2, PLT COUNT 254, SODIUM 141, POTASSIUM 3.6, CHLORIDE 104, BUN 8, CREATININE 1.16, CALCIUM 8.0, MAGNESIUM 1.5, TOTAL BILI 0.30, AST 14, ALT 9, ALK PHOS 89, TOTAL PROTEIN 5.7, ALBUMIN 2.4. BLOOD CULTURES ARE PENDING. WE OBTAINED A LOWER EXTREMITY VENOUS DOPPLER YESTERDAY. IT REVEALED: 1. No lower extremity venous thrombosis 2. Bilateral subcutaneous edema. SHE IS CURRENTLY RECEIVING NORMAL SALINE AT KVO, ZOSYN 3.375G IV TID, LASIX 20MG IV BID, LOVENOX DAILY. HER HOME MEDICATIONS OF TYLENOL, ATORVASTATIN, AZELASTINE, FAMOTIDINE, FOLIC ACID, GABAPENTIN, GENTAMICIN OINTMENT, NORCO, LINZESS, MAG OX, METHOTREXATE, PROTONIX, POTASSIUM CHLORIDE, AND DIOVAN WERE RESUMED. WE WILL ORDER FOR HER TO WEAR THE SCDs WHILE SHE IS IN THE HOSPITAL. OTHERWISE, WE WILL CONTINUE WITH CURRENT PLAN OF CARE. WE PLAN TO FOLLOW UP WITH AM LABS AND CONTINUE TO MONITOR. TIME SPENT ON CLINICAL ASSESSMENT, REVIEWING LABS AND IMAGING, DECISION MAKING, AND DOCUMENTATION GREATER THAN 45 MINUTES. - Past Medical Family Social History Past Med/Fam/Surg Hx: No changes since H&P Allergies: Allergies codeine Allergy (Unknown, Verified 01/28/23 00:42) Reason: Drug allergy - Review of Systems ROS: No change since H&P - Vital Signs and I&O's Vital Signs: Vital Signs Temperature 97.6 F Temperature 98.9 F Pulse Rate [Left Brachial] 77 Pulse Rate [Left Brachial] 64 Respiratory Rate 20 Respiratory Rate 18 Respiratory Rate 18 Blood Pressure [Left Arm] 177/83 Blood Pressure [Left Arm] 102/51 O2 Sat by Pulse Oximetry 96 O2 Sat by Pulse Oximetry 99 Intake and Output: Intake & Output 01/25/23 01/26/23 01/27/23 01/28/23 11:59 11:59 11:59 11:59 Intake Total 1067 / 1067 1340 / 1340 Balance 1067 / 1067 1340 / 1340 - Physical Exam Oriented: Normal Eyes: Normal Ear: Normal Nose: Normal Throat: Normal Respiratory: Normal Cardiovascular: Edema (BLE 1+ PITTING EDEMA ) : Normal Auscultation: Bowel Sounds: Normal Palpation: Normal Tenderness: Normal Skin: Red, Tender (BILATERAL LOWER EXTREMITIES ), Hot Musculoskeletal: Normal Psychiatric: Normal Mood Description: Calm Affect: Normal Speech Pattern: Clear, Appropriate - Laboratory and Diagnostics Result Diagrams: 01/28/23 05:28 01/28/23 05:28 Labs: Laboratory WBC 4.5 X10^3/uL (3.6-10.0) 01/28/23 05:28 RBC 3.17 X10^6/uL (3.5-5.4) L 01/28/23 05:28 Hgb 8.8 g/dL (12.0-16.0) L 01/28/23 05:28 Hct 26.2 % (36.0-47.0) L 01/28/23 05:28 MCV 82.6 fL (80.0-100.0) 01/28/23 05:28 MCH 27.8 pg (27.0-34.0) 01/28/23 05:28 MCHC 33.7 g/dL (33.0-35.0) 01/28/23 05:28 RDW 14.5 % (11.6-16.5) 01/28/23 05:28 Plt Count 254 X10^3/uL (150.0-450.0) 01/28/23 05:28 Plt Count Comment Adequate (ADEQUATE) 01/28/23 05:28 MPV 7.3 fL (7.4-11.0) L 01/28/23 05:28 Neut % (Auto) 46.9 % (42.0-75.0) 01/28/23 05:28 Lymph % (Auto) 28.5 % (21.0-51.0) 01/28/23 05:28 [place] % (Auto) 21.4 % (0.0-13.0) H 01/28/23 05:28 Eos % (Auto) 2.7 % (0.9-2.9) 01/28/23 05:28 Baso % (Auto) 0.5 % (0.2-1.0) 01/28/23 05:28 Neut # (Auto) 2.1 x10^3/uL (2.2-4.8) L 01/28/23 05:28 Lymph # (Auto) 1.3 X10^3/uL (1.3-2.9) 01/28/23 05:28 [place] # (Auto) 1.0 x10^3/uL (0.3-0.8) H 01/28/23 05:28 Eos # (Auto) 0.1 x10^3/uL (0.0-0.2) 01/28/23 05:28 Baso # (Auto) 0.0 X10^3/uL (0.0-0.1) 01/28/23 05:28 Absolute Nucleated RBC 0.1 /100WBC 01/28/23 05:28 Total Counted 100 01/28/23 05:28 Neutrophils % (Manual) 56 % (39-76) 01/28/23 05:28 Band Neutrophils % 2 % (0-10) 01/27/23 04:46 Lymphocytes % (Manual) 24 % (13-43) 01/28/23 05:28 Monocytes % (Manual) 17 % (4-9) H 01/28/23 05:28 Eosinophils % (Manual) 3 % (0-6) 01/28/23 05:28 Plt Morphology Comment Normal (NORMAL) 01/28/23 05:28 RBC Morphology Abnormal (NORMAL) A 01/28/23 05:28 Target Cells Slight A 01/28/23 05:28 Ibeth Cells 1+ A 01/28/23 05:28 Acanthocytes (Spur) Present 01/27/23 04:46 Sodium 141 mmol/L (136-145) 01/28/23 05:28 Corrected Sodium TNP 01/28/23 05:28 Potassium 3.6 mmol/L (3.5-5.1) 01/28/23 05:28 Chloride 104 mmol/L (98-107) 01/28/23 05:28 Carbon Dioxide 31.5 mmol/L (21-32) 01/28/23 05:28 BUN 8 mg/dL (7-18) 01/28/23 05:28 Creatinine 1.16 mg/dL (0.55-1.02) H 01/28/23 05:28 Est GFR (MDRD) Af Amer 57 (>60) L 01/28/23 05:28 Est GFR (MDRD) Non-Af 47 (>60) L 01/28/23 05:28 Glucose 94 mg/dL (65-99) 01/28/23 05:28 Calcium 8.0 mg/dL (8.5-10.1) L 01/28/23 05:28 Corrected Calcium 9.3 mg/dL (8.5-10.1) 01/28/23 05:28 Magnesium 1.5 mg/dL (2.0-2.9) L 01/28/23 05:28 Total Bilirubin 0.30 mg/dL (0.2-1.0) 01/28/23 05:28 AST 14 Units/L (15-37) L 01/28/23 05:28 ALT 9 Units/L (12-78) L 01/28/23 05:28 Alkaline Phosphatase 89 Units/L (46-116) 01/28/23 05:28 Total Protein 5.7 g/dL (6.4-8.2) L 01/28/23 05:28 Albumin 2.4 g/dL (3.4-5.0) L 01/28/23 05:28 Globulin 3.3 g/dL (2.5-4.5) 01/28/23 05:28 Albumin/Globulin Ratio 0.7 Ratio (1.1-2.1) L 01/28/23 05:28 - Plan (1) Bilateral lower leg cellulitis Status: Acute Plan: SCDs, NORMAL SALINE AT KVO, ZOSYN 3.375G IV TID, LASIX 20MG IV BID, LOVEN OX DAILY. RESUME HOME MEDS (2) Lower extremity edema Status: Acute (3) Chronic venous insufficiency Status: Acute (4) Anemia Status: Acute Qualifiers: Anemia type: iron deficiency Iron deficiency anemia type: unspecified iron deficiency Qualified Code(s): D50.9 - Iron deficiency anemia, unspecified Plan: MONITOR H&H, RESUME FOLIC ACID (5) GERD (gastroesophageal reflux disease) Status: Chronic Qualifiers: Esophagitis presence: esophagitis presence not specified Plan: CONTINUE FAMOTIDINE AND PANTOPRAZOLE (6) HTN (hypertension) Status: Chronic Qualifiers: Hypertension type: primary hypertension Plan: CONTINUE DIOVAN AND HYPERTENSIVE PROTOCOL (7) Hyperlipidemia Status: Chronic Qualifiers: Hyperlipidemia type: mixed hyperlipidemia Plan: CONTINUE ATORVASTATIN
[2023-01-28] MEDS: NORCO 10/325 TAB PO PRN (13:22)
[2023-01-28] MEDS: LIPITOR TAB 40 MG PO SCH (20:40)
[2023-01-28] MEDS: PEPCID TAB 20 MG PO SCH (21:00)
[2023-01-29] MEDS: TYLENOL 500 MG TAB EXTRA STRENGTH PO PRN (04:14)
[2023-01-29 05:10] LABS: BASOPHILS % (AUTO) 0.7 % (0.2-1.0); EOSINOPHILS # (AUTO) 0.2 x10^3/uL (0.0-0.2); EOSINOPHILS % (AUTO) 4.1 % (0.9-2.9); HEMATOCRIT 28.1 % (36.0-47.0); HEMOGLOBIN 9.6 g/dL (12.0-16.0); LYMPHOCYTES # (AUTO) 1.5 X10^3/uL (1.3-2.9); LYMPHOCYTES % (AUTO) 38.4 % (21.0-51.0); MEAN CORPUSCULAR HEMOGLOBIN 28.2 pg (27.0-34.0); MEAN CORPUSCULAR HGB CONC 34.3 g/dL (33.0-35.0); MEAN CORPUSCULAR VOLUME 82.3 fL (80.0-100.0); MEAN PLATELET VOLUME 7.4 fL (7.4-11.0); MONOCYTES # (AUTO) 0.7 x10^3/uL (0.3-0.8); NEUTROPHILS # (AUTO) 1.5 x10^3/uL (2.2-4.8); NEUTROPHILS % (AUTO) 37.8 % (42.0-75.0); PLATELET COUNT 270 X10^3/uL (150.0-450.0); RED BLOOD COUNT 3.42 X10^6/uL (3.5-5.4); RED CELL DISTRIBUTION WIDTH 14.6 % (11.6-16.5); WHITE BLOOD COUNT 3.9 X10^3/uL (3.6-10.0)
[2023-01-29 05:35] LABS: ALANINE AMINOTRANSFERASE 11 Units/L (12-78); ALBUMIN 2.7 g/dL (3.4-5.0); ALKALINE PHOSPHATASE 95 Units/L (46-116); ASPARTATE AMINO TRANSFERASE 13 Units/L (15-37); BLOOD UREA NITROGEN 8 mg/dL (7-18); CALCIUM 8.3 mg/dL (8.5-10.1); CARBON DIOXIDE 33.4 mmol/L (21-32); CHLORIDE 101 mmol/L (98-107); COR CA(FOR HYPOALB) 9.3 mg/dL (8.5-10.1); COR NA(FOR HYPERGLY) 140 mmol/L (136-145); CREATININE 1.11 mg/dL (0.55-1.02); GLUCOSE 113 mg/dL (65-99); MAGNESIUM 1.7 mg/dL (2.0-2.9); POTASSIUM 3.7 mmol/L (3.5-5.1); SODIUM 140 mmol/L (136-145); TOTAL PROTEIN 6.3 g/dL (6.4-8.2); eGFR NON BLACK RACES 50 (>60)
[2023-01-29] MEDS: NEURONTIN CAP 300 MG PO SCH ×3 (05:47→21:14)
[2023-01-29] MEDS: ZOSYN VIAL 3.375 GRAMS 3.375 G in NS 100 ML IV 100 ML IV SCH ×3 (05:47→21:14)
[2023-01-29] MEDS: PROTONIX TAB 40 MG PO SCH ×2 (09:14→20:38)
[2023-01-29] MEDS: LINZESS PO SCH (09:14)
[2023-01-29] MEDS: MICRO K EXTEN CAP 10 MEQ PO SCH (09:14)
[2023-01-29] MEDS: DIOVAN TAB 160 MG PO SCH ×2 (09:14→20:38)
[2023-01-29] MEDS: GENTAMICIN TOPICAL OINT TOP SCH ×2 (09:15→20:58)
[2023-01-29] MEDS: LASIX IVP SCH ×2 (09:15→16:36)
[2023-01-29] MEDS: FOLIC ACID TAB 1 MG PO SCH (09:15)
[2023-01-29] MEDS: ASTELIN NASAL SPRAY ENOSTRIL SCH ×2 (09:27→20:58)
[2023-01-29] MEDS: NS + KCL 20 MEQ/L 1,000 ML with MAGNESIUM SULFATE 50% INJ VIAL 1 G IV SCH ×2 (09:47)
[2023-01-29] MEDS ORDERED: CATAPRES TAB 0.1 MG ONE (13:13)
[2023-01-29] MEDS: PEPCID TAB 20 MG PO SCH (20:37)
[2023-01-29] MEDS: LIPITOR TAB 40 MG PO SCH (20:38)
[2023-01-29] MEDS: NORCO 10/325 TAB PO PRN (20:38)
--- NOTE | 2023-01-29 21:44 | PCM.PROG ---
Progress Note Progress Note for Day of Date of Exam: 01/29/23 Subjective Subjective: IS CURRENTLY OBSERVATION STATUS FOR TREATMENT OF BILATERAL LOWER EXTREMITY CELLULITIS, LOWER EXTREMITY EDEMA, AND CHRONIC VENOUS INSUFFICIENCY. SHE HAS A PMH OF HTN, HYPERLIPIDEMIA, GERD, ANEMIA, AND OSTEOARTHRITIS. SHE HAS HAD AN UNEVENTFUL NIGHT. SHE CONTINUES TO COMPLAIN OF SOME LOWER EXTREMITY SWELLING THIS MORNING. ON EXAMINATION, PATIENT IS ALERT AND ORIENTED, SITTING ON THE SIDE OF THE BED ON MORNING ROUNDS. HEART IS REGULAR IN RATE AND RHYTHM. BILATERAL LUNGS ARE CLEAR TO AUSCULTATION. ABDOMEN IS ROUND, SOFT, AND NON-TENDER WITH NORMAL BOWEL SOUNDS NOTED IN ALL QUADRANTS. BILATERAL LOWER EXTREMITIES ARE NOTED WITH 1+ PITTING EDEMA THIS MORNING. GOOD RANGE OF MOTION NOTED TO ALL EXTREMITIES. HER VITALS THIS MORNING ARE: 97.6-77-20-96%-177/83. LABS WERE OBTAINED. WBC 4.5, RBC 3.17, HGB 8.8, HCT 26.2, PLT COUNT 254, SODIUM 141, POTASSIUM 3.6, CHLORIDE 104, BUN 8, CREATININE 1.16, CALCIUM 8.0, MAGNESIUM 1.5, TOTAL BILI 0.30, AST 14, ALT 9, ALK PHOS 89, TOTAL PROTEIN 5.7, ALBUMIN 2.4. BLOOD CULTURES ARE PENDING. WE OBTAINED A LOWER EXTREMITY VENOUS DOPPLER YESTERDAY. IT REVEALED: 1. No lower extremity venous thrombosis 2. Bilateral subcutaneous edema. SHE IS CURRENTLY RECEIVING NORMAL SALINE AT KVO, ZOSYN 3.375G IV TID, LASIX 20MG IV BID, LOVENOX DAILY. HER HOME MEDICATIONS OF TYLENOL, ATORVASTATIN, AZELASTINE, FAMOTIDINE, FOLIC ACID, GABAPENTIN, GENTAMICIN OINTMENT, NORCO, LINZESS, MAG OX, METHOTREXATE, PROTONIX, POTASSIUM CHLORIDE, AND DIOVAN WERE RESUMED. WE WILL ORDER FOR HER TO WEAR THE SCDs WHILE SHE IS IN THE HOSPITAL. OTHERWISE, WE WILL CONTINUE WITH CURRENT PLAN OF CARE. WE PLAN TO FOLLOW UP WITH AM LABS AND CONTINUE TO MONITOR. TIME SPENT ON CLINICAL ASSESSMENT, REVIEWING LABS AND IMAGING, DECISION MAKING, AND DOCUMENTATION GREATER THAN 45 MINUTES. 29 January 2023 Patient is alert and awake this morning and she reports no new problems since yesterday morning. She reports her legs are feeling better and looking better overall. Her white blood cell count is normal this morning at 3900. She is well-hydrated and her electrolytes are within normal limits. She is mildly anemic with a hemoglobin of 9.6 which is improved from 8.8 yesterday morning. Continue current treatment and repeat routine labs in the morning. We will check a ESR and CRP tomorrow morning and order these daily to make sure they are trending down. Past Medical Family Social History Past Med/Fam/Surg Hx: No changes since H&P Allergies: Allergies codeine Allergy (Unknown, Verified 01/28/23 00:42) Reason: Drug allergy Review of Systems ROS: No change since H&P Vital Signs and I&O's Vital Signs: Vital Signs Temperature 98.1 F Temperature 97.9 F Pulse Rate [Left Brachial] 70 Pulse Rate [Left Brachial] 70 Respiratory Rate 18 Respiratory Rate 20 Respiratory Rate 18 Blood Pressure [Left Arm] 141/56 Blood Pressure [Left Arm] 125/63 Blood Pressure [Left Arm] 130/60 Blood Pressure [Left Arm] 119/57 Blood Pressure [Left Arm] 122/56 Blood Pressure [Left Arm] 131/58 Blood Pressure [Left Arm] 136/58 O2 Sat by Pulse Oximetry 95 O2 Sat by Pulse Oximetry 100 Intake and Output: Intake & Output 01/27/23 01/28/23 01/29/23 01/30/23 11:59 11:59 11:59 11:59 Intake Total 1067 / 1067 1340 / 1340 2045 / 2045 850 / 850 Balance 1067 / 1067 1340 / 1340 2045 / 2045 850 / 850 Physical Exam Oriented: Normal Eyes: Normal Ear: Normal Nose: Normal Throat: Normal Respiratory: Normal Cardiovascular: Edema (BLE 1+ PITTING EDEMA ) : Normal Auscultation: Bowel Sounds: Normal Tenderness: Normal Skin: Red, Tender (BILATERAL LOWER EXTREMITIES ) and Hot Musculoskeletal: Normal Psychiatric: Normal Mood Description: Calm Affect: Normal Speech Pattern: Clear and Appropriate Laboratory and Diagnostics 01/29/23 04:50 01/29/23 04:50 Labs: 01/26/23 10:34 Blood Blood Culture - Preliminary 01/26/23 10:27 Blood Blood Culture - Preliminary Laboratory WBC 3.9 X10^3/uL (3.6-10.0) 01/29/23 04:50 RBC 3.42 X10^6/uL (3.5-5.4) L 01/29/23 04:50 Hgb 9.6 g/dL (12.0-16.0) L 01/29/23 04:50 Hct 28.1 % (36.0-47.0) L 01/29/23 04:50 MCV 82.3 fL (80.0-100.0) 01/29/23 04:50 MCH 28.2 pg (27.0-34.0) 01/29/23 04:50 MCHC 34.3 g/dL (33.0-35.0) 01/29/23 04:50 RDW 14.6 % (11.6-16.5) 01/29/23 04:50 Plt Count 270 X10^3/uL (150.0-450.0) 01/29/23 04:50 Plt Count Comment Adequate (ADEQUATE) 01/28/23 05:28 MPV 7.4 fL (7.4-11.0) 01/29/23 04:50 Neut % (Auto) 37.8 % (42.0-75.0) L 01/29/23 04:50 Lymph % (Auto) 38.4 % (21.0-51.0) 01/29/23 04:50 [place] % (Auto) 19.0 % (0.0-13.0) H 01/29/23 04:50 Eos % (Auto) 4.1 % (0.9-2.9) H 01/29/23 04:50 Baso % (Auto) 0.7 % (0.2-1.0) 01/29/23 04:50 Neut # (Auto) 1.5 x10^3/uL (2.2-4.8) L 01/29/23 04:50 Lymph # (Auto) 1.5 X10^3/uL (1.3-2.9) 01/29/23 04:50 [place] # (Auto) 0.7 x10^3/uL (0.3-0.8) 01/29/23 04:50 Eos # (Auto) 0.2 x10^3/uL (0.0-0.2) 01/29/23 04:50 Baso # (Auto) 0.0 X10^3/uL (0.0-0.1) 01/29/23 04:50 Absolute Nucleated RBC 0.1 /100WBC 01/29/23 04:50 Total Counted 100 01/28/23 05:28 Neutrophils % (Manual) 56 % (39-76) 01/28/23 05:28 Band Neutrophils % 2 % (0-10) 01/27/23 04:46 Lymphocytes % (Manual) 24 % (13-43) 01/28/23 05:28 Monocytes % (Manual) 17 % (4-9) H 01/28/23 05:28 Eosinophils % (Manual) 3 % (0-6) 01/28/23 05:28 Plt Morphology Comment Normal (NORMAL) 01/28/23 05:28 RBC Morphology Abnormal (NORMAL) A 01/28/23 05:28 Target Cells Slight A 01/28/23 05:28 Ibeth Cells 1+ A 01/28/23 05:28 Acanthocytes (Spur) Present 01/27/23 04:46 Sodium 140 mmol/L (136-145) 01/29/23 04:50 Corrected Sodium 140 mmol/L (136-145) 01/29/23 04:50 Potassium 3.7 mmol/L (3.5-5.1) 01/29/23 04:50 Chloride 101 mmol/L (98-107) 01/29/23 04:50 Carbon Dioxide 33.4 mmol/L (21-32) H 01/29/23 04:50 BUN 8 mg/dL (7-18) 01/29/23 04:50 Creatinine 1.11 mg/dL (0.55-1.02) H 01/29/23 04:50 Est GFR (MDRD) Af Amer > 60 (>60) 01/29/23 04:50 Est GFR (MDRD) Non-Af 50 (>60) L 01/29/23 04:50 Glucose 113 mg/dL (65-99) H 01/29/23 04:50 Calcium 8.3 mg/dL (8.5-10.1) L 01/29/23 04:50 Corrected Calcium 9.3 mg/dL (8.5-10.1) 01/29/23 04:50 Magnesium 1.7 mg/dL (2.0-2.9) L 01/29/23 04:50 Iron 26 ug/dL (50-175) L 01/28/23 05:28 TIBC 131 ug/dL (250-450) L 01/28/23 05:28 Transferrin 113 mg/dL (202-364) L 01/28/23 05:28 Ferritin 170 ng/mL (8-252) 01/28/23 05:28 Total Bilirubin 0.30 mg/dL (0.2-1.0) 01/29/23 04:50 AST 13 Units/L (15-37) L 01/29/23 04:50 ALT 11 Units/L (12-78) L 01/29/23 04:50 Alkaline Phosphatase 95 Units/L (46-116) 01/29/23 04:50 Total Protein 6.3 g/dL (6.4-8.2) L 01/29/23 04:50 Albumin 2.7 g/dL (3.4-5.0) L 01/29/23 04:50 Globulin 3.6 g/dL (2.5-4.5) 01/29/23 04:50 Albumin/Globulin Ratio 0.8 Ratio (1.1-2.1) L 01/29/23 04:50 Vitamin B12 1187 pg/mL (193-986) H 01/28/23 05:28 Folate 17.7 ng/mL (>8.6) 01/28/23 05:28 Plan (1) Bilateral lower leg cellulitis: Status: Acute Narrative Support Text: Overall improving. Plan: SCDs, NORMAL SALINE AT KVO, ZOSYN 3.375G IV TID, LASIX 20MG IV BID, LOVENOX DAILY. RESUME HOME MEDS (2) Lower extremity edema: Status: Acute Narrative Support Text: Improving with IV diuresis and treatment of cellulitis. (3) Chronic venous insufficiency: Status: Acute (4) Anemia: Status: Acute Qualifiers: Anemia type: iron deficiency Iron deficiency anemia type: unspecified iron deficiency Qualified Code(s): D50.9 - Iron deficiency anemia, unspecified Narrative Support Text: Improving since yesterday. Plan: MONITOR H&H, RESUME FOLIC ACID (5) GERD (gastroesophageal reflux disease): Status: Chronic Qualifiers: Esophagitis presence: esophagitis presence not specified Plan: CONTINUE FAMOTIDINE AND PANTOPRAZOLE (6) HTN (hypertension): Status: Chronic Qualifiers: Hypertension type: primary hypertension Plan: CONTINUE DIOVAN AND HYPERTENSIVE PROTOCOL (7) Hyperlipidemia: Status: Chronic Qualifiers: Hyperlipidemia type: mixed hyperlipidemia Plan: CONTINUE ATORVASTATIN
[2023-01-30 04:46] LABS: BASOPHILS % (AUTO) 0.7 % (0.2-1.0); EOSINOPHILS # (AUTO) 0.2 x10^3/uL (0.0-0.2); EOSINOPHILS % (AUTO) 4.2 % (0.9-2.9); HEMATOCRIT 25.7 % (36.0-47.0); HEMOGLOBIN 8.7 g/dL (12.0-16.0); LYMPHOCYTES # (AUTO) 1.5 X10^3/uL (1.3-2.9); LYMPHOCYTES % (AUTO) 36.5 % (21.0-51.0); MEAN CORPUSCULAR HEMOGLOBIN 27.8 pg (27.0-34.0); MEAN CORPUSCULAR HGB CONC 33.9 g/dL (33.0-35.0); MEAN PLATELET VOLUME 7.4 fL (7.4-11.0); MONOCYTES # (AUTO) 0.7 x10^3/uL (0.3-0.8); MONOCYTES % (AUTO) 18.5 % (0.0-13.0); NEUTROPHILS # (AUTO) 1.6 x10^3/uL (2.2-4.8); NEUTROPHILS % (AUTO) 40.1 % (42.0-75.0); PLATELET COUNT 247 X10^3/uL (150.0-450.0); RED BLOOD COUNT 3.13 X10^6/uL (3.5-5.4); RED CELL DISTRIBUTION WIDTH 14.6 % (11.6-16.5)
[2023-01-30 04:51] LABS: ERYTHROCYTE SEDIMENTATION RATE 8 MM/HOUR (0-20)
[2023-01-30 04:58] LABS: ALANINE AMINOTRANSFERASE 9 Units/L (12-78); ALBUMIN 2.4 g/dL (3.4-5.0); ALKALINE PHOSPHATASE 89 Units/L (46-116); ASPARTATE AMINO TRANSFERASE 13 Units/L (15-37); BLOOD UREA NITROGEN 10 mg/dL (7-18); CALCIUM 8.3 mg/dL (8.5-10.1); CARBON DIOXIDE 31.3 mmol/L (21-32); CHLORIDE 103 mmol/L (98-107); COR CA(FOR HYPOALB) 9.6 mg/dL (8.5-10.1); CREATININE 1.16 mg/dL (0.55-1.02); GLUCOSE 94 mg/dL (65-99); MAGNESIUM 1.8 mg/dL (2.0-2.9); SODIUM 139 mmol/L (136-145); TOTAL PROTEIN 5.7 g/dL (6.4-8.2); eGFR NON BLACK RACES 47 (>60)
[2023-01-30] MEDS: NEURONTIN CAP 300 MG PO SCH ×3 (05:22→21:17)
[2023-01-30] MEDS: ZOSYN VIAL 3.375 GRAMS 3.375 G in NS 100 ML IV 100 ML IV SCH ×3 (05:23→21:18)
[2023-01-30] MEDS ORDERED: CONSULT PHARMACY - POTASSIUM & MAGNESIUM XX SCH (06:00)
[2023-01-30] MEDS: NORCO 10/325 TAB PO PRN ×2 (07:34→20:39)
[2023-01-30] MEDS: MAG-OX TAB PO SCH ×2 (10:00→10:10)
[2023-01-30] MEDS: LINZESS PO SCH (10:00)
[2023-01-30] MEDS: LASIX IVP SCH ×2 (10:00→16:00)
[2023-01-30] MEDS: PROTONIX TAB 40 MG PO SCH ×2 (10:00→20:38)
[2023-01-30] MEDS: DIOVAN TAB 160 MG PO SCH ×2 (10:00→20:39)
[2023-01-30] MEDS: MICRO K EXTEN CAP 10 MEQ PO SCH (10:10)
[2023-01-30] MEDS: FOLIC ACID TAB 1 MG PO SCH (10:11)
[2023-01-30] MEDS: ASTELIN NASAL SPRAY ENOSTRIL SCH ×2 (10:11→20:39)
[2023-01-30] MEDS: GENTAMICIN TOPICAL OINT TOP SCH ×2 (10:12→20:39)
[2023-01-30] MEDS ORDERED: METHOTREXATE PO SCH (10:42)
[2023-01-30] MEDS: NS + KCL 20 MEQ/L 1,000 ML with MAGNESIUM SULFATE 50% INJ VIAL 1 G IV SCH ×2 (12:55)
[2023-01-30] MEDS: PEPCID TAB 20 MG PO SCH (20:39)
[2023-01-30] MEDS: LIPITOR TAB 40 MG PO SCH (20:39)
[2023-01-31 04:56] LABS: BASOPHILS % (AUTO) 0.7 % (0.2-1.0); EOSINOPHILS # (AUTO) 0.2 x10^3/uL (0.0-0.2); EOSINOPHILS % (AUTO) 3.8 % (0.9-2.9); HEMATOCRIT 26.4 % (36.0-47.0); HEMOGLOBIN 8.9 g/dL (12.0-16.0); LYMPHOCYTES # (AUTO) 1.4 X10^3/uL (1.3-2.9); LYMPHOCYTES % (AUTO) 27.7 % (21.0-51.0); MEAN CORPUSCULAR HEMOGLOBIN 27.8 pg (27.0-34.0); MEAN CORPUSCULAR HGB CONC 33.7 g/dL (33.0-35.0); MEAN CORPUSCULAR VOLUME 82.4 fL (80.0-100.0); MEAN PLATELET VOLUME 7.6 fL (7.4-11.0); MONOCYTES % (AUTO) 19.9 % (0.0-13.0); NEUTROPHILS # (AUTO) 2.5 x10^3/uL (2.2-4.8); NEUTROPHILS % (AUTO) 47.9 % (42.0-75.0); PLATELET COUNT 256 X10^3/uL (150.0-450.0); RED CELL DISTRIBUTION WIDTH 14.9 % (11.6-16.5); WHITE BLOOD COUNT 5.2 X10^3/uL (3.6-10.0)
[2023-01-31] MEDS: NORCO 10/325 TAB PO PRN (05:00)
[2023-01-31] MEDS: ZOSYN VIAL 3.375 GRAMS 3.375 G in NS 100 ML IV 100 ML IV SCH (05:00)
[2023-01-31] MEDS: NEURONTIN CAP 300 MG PO SCH (05:00)
[2023-01-31 05:01] VITALS: RESP 18
[2023-01-31 05:13] LABS: ALBUMIN 2.5 g/dL (3.4-5.0); CALCIUM 8.3 mg/dL (8.5-10.1); CARBON DIOXIDE 31.4 mmol/L (21-32); COR CA(FOR HYPOALB) 9.5 mg/dL (8.5-10.1); CREATININE 1.15 mg/dL (0.55-1.02); MAGNESIUM 1.6 mg/dL (2.0-2.9); POTASSIUM 4.1 mmol/L (3.5-5.1); TOTAL PROTEIN 6.2 g/dL (6.4-8.2)
[2023-01-31] MEDS ORDERED: CONSULT PHARMACY - POTASSIUM & MAGNESIUM XX SCH (07:00)
[2023-01-31 09:45] VITALS: BP 97/50; PULSE 66; TEMP 98.4; O2SAT 97
[2023-01-31] MEDS: FOLIC ACID TAB 1 MG PO SCH (09:48)
[2023-01-31] MEDS: DIOVAN TAB 160 MG PO SCH (09:48)
[2023-01-31] MEDS: ASTELIN NASAL SPRAY ENOSTRIL SCH (09:48)
[2023-01-31] MEDS: GENTAMICIN TOPICAL OINT TOP SCH (09:49)
[2023-01-31] MEDS: MAG-OX TAB PO SCH ×2 (09:52→10:44)
[2023-01-31] MEDS: PROTONIX TAB 40 MG PO SCH (09:52)
[2023-01-31] MEDS: LASIX IVP SCH (09:52)
[2023-01-31] MEDS: LINZESS PO SCH (09:52)
[2023-01-31] MEDS: NS + KCL 20 MEQ/L 1,000 ML with MAGNESIUM SULFATE 50% INJ VIAL 1 G IV SCH ×2 (09:53)
[2023-01-31] MEDS: MICRO K EXTEN CAP 10 MEQ PO SCH (09:53)
[2023-01-31] MEDS ORDERED: ASTELIN NASAL SPRAY ENOSTRIL ONE (10:05)
== END 2023-01-31 11:59 | disposition home or self-care (01) ==
LOC: MED/SURG
PROVIDERS: ADMIT Internal Medicine; ATTEND Internal Medicine
DX: M19.90 Unspecified osteoarthritis, unspecified site; D50.8 Other iron deficiency anemias; E78.2 Mixed hyperlipidemia; I10 Essential (primary) hypertension; K21.9 Gastro-esophageal reflux disease without esophagitis; R60.0 Localized edema; L03.115 Cellulitis of right lower limb; I87.2 Venous insufficiency (chronic) (peripheral); L03.116 Cellulitis of left lower limb; R79.82 Elevated C-reactive protein (CRP); E83.42 Hypomagnesemia

== ENCOUNTER 2024-11-13 18:14 | Inpatient (IN) ==
--- NOTE | 2024-11-13 19:15 | DR.EXTPAIN ---
HPI Time seen Time Seen by Provider: 11/13/24 19:15 PCP Primary Care Physician: LAUREN Complaint/Symptoms Chief Complaint Doctor Comments: 84 yo F, brought to ER by her 2 daughters for increased periph edema in bilat lower ext. Pt on bumex. Has hx of lower ext edema, has been treated for cellulitis with multiple rounds of abx the past couple weeks. Chief Complaint:: PT AMBULATORY IN ED WITH C/O CELLULITIS IN BILATERAL LOWER LEGS WITH DRAINAGE. PT STATES SHE HAS BEEN SEEING DR. AGUILAR EVERY 2 WEEKS BUT LEGS ARE NOT BETTER. STATES HE CALLED HER IN BACTRIM PO AND GENTAMIC[facility]INT TODAY. COVID-19 Coronavirus risk:travel/contact w/high risk person: No Has patient experienced Coronavirus symptoms: No Source History Provided: Patient Mode of arrival Mode of Arrival: Ambulatory Timing Onset of Chief Complaint: 10/16/24 PMH PMH Past Medical History: Yes Past Medical History: Anemia, Arthritis, Asthma, CHF, COPD, Coronary Artery Disease, CVA, Diabetes, Dyslipidemia, GERD, Hypertension and PUD Past Medical History Comment: CHRONIC VENOUS INSUFF CARDIOMEGALY Past Surgical History: Yes Surgical History: Angioplasty/Stents, Appendectomy and Hysterectomy Family History History of Family Medical Conditions: Yes Family Medical History: Diabetes Mellitus, Cancer, Heart Failure and Hypertension Social History Does patient currently use any type of tobacco product: No Have you used tobacco products in the last 12 months: No Type of Tobacco Use: None Does any household member use tobacco: No Alcohol Use: None Do you use any recreational Drugs:: No Lives With: Family Lives Where: Home Travel Risk Coronavirus risk:travel/contact w/high risk person: No Has patient experienced Coronavirus symptoms: No Infectious screening In the last 2 months have you had wt loss of >10#?: NO Have you had fever, night sweats or hemotysis?: No Have you traveled outside the country in the last 6 months?: No Isolation: Standard ROS Review of Systems Musculoskeletal: Other (bilat lower ext edema) All Other Systems: Reviewed and Negative PE Vital Signs Vitals: Vital Signs Temperature 98.6 F Pulse Rate 69 Pulse Rate 70 Pulse Rate 95 Pulse Rate 70 Pulse Rate 70 Pulse Rate 68 Pulse Rate 74 Pulse Rate 85 Respiratory Rate 20 Blood Pressure 122/59 Blood Pressure 101/52 Blood Pressure 106/51 Blood Pressure 101/56 Blood Pressure 103/55 O2 Sat by Pulse Oximetry 100 O2 Sat by Pulse Oximetry 98 O2 Sat by Pulse Oximetry 83 O2 Sat by Pulse Oximetry 100 O2 Sat by Pulse Oximetry 98 O2 Sat by Pulse Oximetry 99 O2 Sat by Pulse Oximetry 98 O2 Sat by Pulse Oximetry 96 O2 Sat by Pulse Oximetry 99 General Limitations: No Limitations General Appearance: Alert and In No Apparent Distress Head Head Exam: Normal Inspection Eyes Eye exam: Normal Appearance ENT ENT Exam: Normal Exam Neck Neck Exam: Normal Inspection Chest Chest Inspection: Normal Inspection Respiratory Respiratory Exam: Normal Lung Sounds Bilat Cardiovascular Cardiovascular Exam: Regular Rate and Normal Rhythm Extremities Extremities Exam: Other (3+ pitting edema in bilat lower ext) Back Back Exam: Normal Inspection Neurological Neurological Exam: Alert, Oriented X3 and CN II-XII Intact Psychiatric Psychiatric Exam: Normal Affect and Normal Mood Skin Skin Exam: Warm, Dry, Intact and Normal Color ROR Labs Reviewed Laboratory Results Reviewed?: Yes 11/13/24 19:21 11/13/24 19:21 Laboratory: WBC 3.4 X10^3/uL (3.6-10.0) L 11/13/24 19:21 RBC 2.73 X10^6/uL (3.5-5.4) L 11/13/24 19:21 Hgb 8.3 g/dL (12.0-16.0) L 11/13/24 19:21 Hct 24.1 % (36.0-47.0) L 11/13/24 19:21 MCV 88.1 fL (80.0-100.0) 11/13/24 19:21 MCH 30.3 pg (27.0-34.0) 11/13/24 19:21 MCHC 34.3 g/dL (33.0-35.0) 11/13/24 19:21 RDW 18.7 % (11.6-16.5) H 11/13/24 19:21 Plt Count 145 X10^3/uL (150.0-450.0) L 11/13/24 19:21 MPV 6.9 fL (7.4-11.0) L 11/13/24 19:21 Neut % (Auto) 52.4 % (42.0-75.0) 11/13/24 19:21 Lymph % (Auto) 27.2 % (21.0-51.0) 11/13/24 19:21 [place] % (Auto) 18.8 % (0.0-13.0) H 11/13/24 19:21 Eos % (Auto) 1.3 % (0.9-2.9) 11/13/24 19:21 Baso % (Auto) 0.3 % (0.2-1.0) 11/13/24 19:21 Neut # (Auto) 1.8 x10^3/uL (2.2-4.8) L 11/13/24 19:21 Lymph # (Auto) 0.9 X10^3/uL (1.3-2.9) L 11/13/24 19:21 [place] # (Auto) 0.6 x10^3/uL (0.3-0.8) 11/13/24 19:21 Eos # (Auto) 0.0 x10^3/uL (0.0-0.2) 11/13/24 19:21 Baso # (Auto) 0.0 X10^3/uL (0.0-0.1) 11/13/24 19:21 Absolute Nucleated RBC 0.4 /100WBC 11/13/24 19:21 Sodium 135 mmol/L (136-145) L 11/13/24 19:21 Corrected Sodium TNP 11/13/24 19:21 Potassium 5.5 mmol/L (3.5-5.1) H 11/13/24 19:21 Chloride 101 mmol/L (98-107) 11/13/24 19:21 Carbon Dioxide 29.2 mmol/L (21-32) 11/13/24 19:21 BUN 72 mg/dL (7-18) H 11/13/24 19:21 Creatinine 4.12 mg/dL (0.55-1.02) H 11/13/24 19:21 Est GFR (MDRD) Af Amer 13 (>60) L 11/13/24 19:21 Est GFR (MDRD) Non-Af 11 (>60) L 11/13/24 19:21 Glucose 109 mg/dL (65-99) H 11/13/24 19:21 Calcium 9.3 mg/dL (8.5-10.1) 11/13/24 19:21 Opioid Opioid Risk Tool Age (Ibrahima box if 16-45): No History of Preadolescent Sexual Abuse: No Total: 0 Total Score Risk Category: Low Risk Copyright: Shashank LARKIN predicting aberrant behaviors Discharge Plan Diagnosis Discharge Problem: GLADYS (acute kidney injury), Bilateral edema of lower extremity Discharge Plan Patient Disposition: 09 ADMITTED INPATIENT Condition: Stable Prescriptions: No Action aspirin 81 mg tablet,delayed release (DR/EC) 81 mg PO QDAY carvedilol 12.5 mg tablet 12.5 mg PO BID Qty: 180 3RF Rx Instructions: must administer with a meal/food montelukast 10 mg tablet 10 mg PO QDAY rivaroxaban [Xarelto] 2.5 mg tablet 2.5 mg PO BID gabapentin 300 mg capsule 300 mg PO TID azelastine 137 mcg (0.1 %) aerosol,spray 2 spray INTRANASAL BID PRN Patient Comments: [NO ORIGINAL SIG] bumetanide 1 mg Tablet 1 mg PO BID PRN famotidine 40 mg tablet 40 mg PO QHS methotrexate sodium 2.5 mg tablet 2.5 mg PO WEEKLY Patient Comments: pt takes on Tuesdays Rx Instructions: TAKES ON TUESDAY atorvastatin 40 mg tablet 40 mg PO QHS Patient Comments: take 1 tablet by mouth at bedtime Linzess 145 mcg capsule 145 mcg PO DAILY Rx Instructions: for constipation. pantoprazole 40 MG tablet,delayed release (DR/EC) 40 mg PO BID Qty: 60 3RF Rx Instructions: TAKE ONE TABLET TWICE A DAY valsartan 160 mg Tablet 160 mg PO BID potassium chloride 10 mEq tablet extended release 10 meq PO QDAY hydrocodone-acetaminophen 10-325 mg tablet 1 tab PO TID PRN (Reason: Pain) sulfamethoxazole-trimethoprim 800-160 mg tablet 1 tab PO BID sulfamethoxazole-trimethoprim 800-160 mg tablet 1 tab PO BID ondansetron 8 mg tablet,disintegrating 8 mg PO DAILY PRN meclizine 25 mg tablet 25 mg PO BID PRN mupirocin 2 % ointment 1 applic TOPICAL BID-TID nystatin 100,000 unit/gram powder 1 applic TOPICAL BID-TID albuterol sulfate 90 mcg/actuation HFA aerosol inhaler 2 puff inhalation BID PRN oxybutynin chloride 5 mg tablet 5 mg PO BID gentamicin 0.1 % ointment 1 applic TOPICAL BID Patient Comments: [NO ORIGINAL SIG] Health Concerns: Post Hospitalization: new medications and changes needed to prevent readmission or further decline. Pt educated and given instructions on all concerns. Plan of Treatment: Continue with present treatment and follow up plan. Pt is to keep follow up appointment as instructed and take medications as ordered. Orders to Discharge Patient Discharge Orders: Transfer (Routine); Ordered 11/13/24 Ordered By: Dalton Aguilar Follow ups/Referrals Follow ups/Referrals: Júnior Aguilar [Primary Care Provider, MEDICAL] - 3 days Instructions Stand Alone Forms: Find Help Web Site, Post Hospital Follow Up Care Print Language: YAKUT ADDITIONAL NOTES Additional Notes Additional Notes: Pt admitted by Dr Wheat.
[2024-11-13] MEDS: LASIX IVP ONE (19:23)
[2024-11-13 19:29] LABS: MEAN PLATELET VOLUME 6.9 fL (7.4-11.0)
[2024-11-13 19:32] LABS: RED CELL DISTRIBUTION WIDTH 18.7 % (11.6-16.5)
[2024-11-13 19:36] LABS: CREATININE 4.12 mg/dL (0.55-1.02); eGFR NON BLACK RACES 11 (>60)
--- NOTE | 2024-11-13 20:35 | EKG ---
Test Reason : CHF Blood Pressure : */* mmHG Vent. Rate : 69 BPM Atrial Rate : 69 BPM P-R Int : 138 ms QRS Dur : 114 ms QT Int : 412 ms P-R-T Axes : 61 -33 8 degrees QTc Int : 441 ms Normal sinus rhythm Left axis deviation Right bundle branch block Abnormal ECG When compared with ECG of 26-JAN-2023 13:44, premature atrial complexes are no longer present Criteria for Septal infarct are no longer present T wave inversion less evident in Inferior leads T wave inversion no longer evident in Anterolateral leads QT has shortened Confirmed by Guillaume Argueta MD ([id number]) on 11/14/2024 6:06:36 AM Referred By: Confirmed By: Guillaume Argueta MD
[2024-11-13 20:45] LABS: BLOOD/HEMOGLOBIN,URINE NEGATIVE (NEGATIVE); LEUKOCYTE ESTERASE ,URINE NEGATIVE (NEGATIVE); NITRITES,URINE NEGATIVE (NEGATIVE)
[2024-11-13 20:46] LABS: APPEARANCE,URINE CLEAR (CLEAR)
[2024-11-13] MEDS ORDERED: CONSULT PHARMACY - POTASSIUM & MAGNESIUM XX SCH (21:17)
[2024-11-13] MEDS ORDERED: ANTIVERT TAB 25 MG PO PRN (21:17)
[2024-11-13] MEDS ORDERED: NORCO 10/325 TAB PO PRN (21:17)
[2024-11-13] MEDS ORDERED: TYLENOL 325 MG TAB PO PRN (21:17)
[2024-11-13] MEDS ORDERED: MUPIROCIN 2% TP SCH (21:17)
[2024-11-13] MEDS ORDERED: BUMEX TAB 1 MG PO PRN (21:17)
[2024-11-13] MEDS ORDERED: ZOFRAN ODT PO PRN (21:37)
[2024-11-13] MEDS ORDERED: PROVENTIL NEB TX 0.083% 2.5MG/ 3ML NEB PRN (21:57)
[2024-11-13] MEDS ORDERED: BACTROBAN TOPICAL OINT TOP SCH (22:00)
[2024-11-13] MEDS: COREG TAB 12.5 MG PO SCH (22:15)
[2024-11-13] MEDS: LIPITOR TAB 40 MG PO SCH (22:15)
[2024-11-13] MEDS: PEPCID TAB 40 MG PO SCH (22:16)
[2024-11-13] MEDS: XARELTO PO SCH (22:17)
[2024-11-13] MEDS: PROTONIX TAB 40 MG PO SCH (22:17)
[2024-11-13] MEDS: NEURONTIN CAP 300 MG PO SCH (22:18)
[2024-11-13] MEDS: GENTAMICIN TOPICAL OINT TOP SCH (22:20)
[2024-11-13] MEDS: NS 1,000 ML IV 1,000 ML IV SCH (22:22)
[2024-11-13] MEDS: DITROPAN TAB 5 MG PO SCH (22:27)
[2024-11-13] MEDS: BACTRIM DS TAB PO SCH (22:27)
[2024-11-13 22:28] VITALS: BMI 32.8
[2024-11-13] MEDS: DIOVAN TAB 160 MG PO SCH (22:37)
[2024-11-14 06:07] LABS: MEAN PLATELET VOLUME 6.9 fL (7.4-11.0); RED CELL DISTRIBUTION WIDTH 18.8 % (11.6-16.5)
[2024-11-14 06:22] LABS: COR CA(FOR HYPOALB) 10.2 mg/dL (8.5-10.1); CREATININE 3.67 mg/dL (0.55-1.02); eGFR NON BLACK RACES 12 (>60)
--- NOTE | 2024-11-14 08:33 | RAD ---
EXAM: CHEST, 1 VIEW HISTORY: C/O CELLULITIS IN BILATERAL LOWER LEGS WITH DRAINAGE.; COMPARISON: 10/29/2020 FINDINGS: Suboptimal positioning. The lungs are clear. No pneumothorax or effusion. Cardiomegaly is present. Atherosclerotic calcifications are present in the aorta. The bones are unremarkable. There is artifact from the patient's clothing which was not removed. IMPRESSION: 1. Cardiomegaly THIS IS AN ELECTRONICALLY VERIFIED FINAL REPORT 11/14/2024 8:30 AM - Electronically signed by [place] MD
[2024-11-14] MEDS: SINGULAIR TAB 10 MG PO SCH (08:50)
[2024-11-14] MEDS: LINZESS PO SCH (08:50)
[2024-11-14] MEDS: ASPIRIN EC 81 MG PO SCH (08:50)
[2024-11-14] MEDS: KLOR-CON 10 MEQ TAB PO SCH (08:50)
[2024-11-14] MEDS ORDERED: METHOTREXATE PO SCH (09:00)
[2024-11-14] MEDS: ROCEPHIN VIAL 1 GRAM 1 G in NS 100 ML IV 100 ML IV SCH (10:12)
--- NOTE | 2024-11-14 10:52 | DR.H&P ---
H&P History & Physical for Day of: H&P Date: 11/14/24 Chief Complaint Chief Complaint: LE edema and redness History of Present Illness History of Present Illness: Patient is a 84-year-old female with a past medical history of CAD, CHF, COPD, type 2 diabetes, hypertension, CVA and GERD presented with worsening lower extremity edema. She noticed increased redness and swelling in both legs, worse in the right leg. She was being treated outpatient with antibiotics p.o. and topical. She states her right leg redness continued to get worse. She also noticed some blisters with fluid drainage. She has been taking all her medications as prescribed. ER workup showed elevated potassium 5.5 and creatinine. Hemoglobin was 8.3. UA was negative. Chest x-ray showed cardiomegaly. She was started on gentle hydration. She was given 1 dose of Lasix IV. She was admitted for further evaluation of cellulitis/lower extremity edema. Labs/imaging reviewed: - WBC 3.2 hemoglobin 8.4 platelet 139 BUN 69 creatinine 3.67 potassium 5.1 - Chest x-ray reviewed Plan: Admit to [facility]. Stop Bactrim, start IV Rocephin. Order wound culture. Keep leg elevated. Resume home medications. Replace electrolytes as per protocol. Monitor renal function. Will hold losartan. Ambulate as tolerated. Monitor a.m. labs and imaging. Past Medical History Past Medical History: Anemia, Arthritis, Asthma, CHF, COPD, Coronary Artery Disease, CVA, Diabetes, Dyslipidemia, GERD, Hypertension and PUD Additional Medical History: LUMBAR DDD Past Surgical History Surgical History: Angioplasty/Stents, Appendectomy and Hysterectomy Family History Family Medical History: Diabetes Mellitus, Cancer, Heart Failure and Hypertension Social History Does patient currently use any type of tobacco product: No Have you used tobacco products in the last 12 months: No Type of Tobacco Use: None Does any household member use tobacco: No Alcohol Use: None Drug Use: None Medications Home Medications: Home Medications Medication Instructions Recorded Confirmed Type atorvastatin 40 mg tablet 40 mg PO QHS 03/08/19 History famotidine 40 mg tablet 40 mg PO QHS 03/08/19 History linaclotide 145 mcg capsule 145 mcg PO DAILY 03/08/19 11/13/24 History (Linzess) methotrexate sodium 2.5 mg tablet 2.5 mg PO WEEKLY 11/1711/13/24 History valsartan 160 mg tablet 160 mg PO BID 12/25/2111/13 History hydrocodone 10 mg-acetaminophen 1 tab PO TID PRN Pain 11/30/22 11/13/24 History 325 mg tablet potassium chloride 10 mEq 10 meq PO QDAY 11/30/2210/30 History tablet,extended release azelastine 137 mcg (0.1 %) nasal 2 spray intranasal BI D PRN 01/26/23 11/13/24 History spray bumetanide 1 mg tablet 1 mg PO BID PRN 01/26/23 History gabapentin 300 mg capsule 300 mg PO TID 01/26/2311/13 History aspirin 81 mg tablet,delayed 81 mg PO QDAY 09/20/23 History release montelukast 10 mg tablet 10 mg PO QDAY 01/20/2411/13 History rivaroxaban 2.5 mg tablet (Xarelto) 2.5 mg PO BID 08/0111/13/24 History albuterol sulfate 90 mcg/actuation 2 puff inhalation B ID PRN 11/13/24 11/13/24 History aerosol inhaler gentamicin 0.1 % topical ointment 1 applic topical BID 11/13/24 11/13/24 History meclizine 25 mg tablet 25 mg PO BID PRN 11/13/24 History mupirocin 2 % topical ointment 1 applic topical BID-TI D 11/13/24 11/13/24 History nystatin 100,000 unit/gram topical 1 applic topical BI D-TID 11/13/24 11/13/24 History powder ondansetron 8 mg disintegrating 8 mg PO DAILY PRN 10/3011/13/24 History tablet oxybutynin chloride 5 mg tablet 5 mg PO BID 11/13/24 0 11/13/24 History sulfamethoxazole 800 1 tab PO BID 11/13/24 History mg-trimethoprim 160 mg tablet sulfamethoxazole 800 1 tab PO BID 11/13/24 History mg-trimethoprim 160 mg tablet Allergies Allergies Allergy/AdvReac Type Severity Reaction Status Date / Time codeine Allergy Unknown Verified 11/13/24 18:35 Labs 11/14/24 05:31 11/14/24 05:31 Labs: 11/14/24 09:05 Leg - Left Wound Gram Stain - Final Laboratory WBC 3.2 X10^3/uL (3.6-10.0) L 11/14/24 05:31 RBC 2.79 X10^6/uL (3.5-5.4) L 11/14/24 05:31 Hgb 8.4 g/dL (12.0-16.0) L 11/14/24 05:31 Hct 24.3 % (36.0-47.0) L 11/14/24 05:31 MCV 87.3 fL (80.0-100.0) 11/14/24 05:31 MCH 30.0 pg (27.0-34.0) 11/14/24 05:31 MCHC 34.3 g/dL (33.0-35.0) 11/14/24 05:31 RDW 18.8 % (11.6-16.5) H 11/14/24 05:31 Plt Count 139 X10^3/uL (150.0-450.0) L 11/14/24 05:31 MPV 6.9 fL (7.4-11.0) L 11/14/24 05:31 Neut % (Auto) 48.7 % (42.0-75.0) 11/14/24 05:31 Lymph % (Auto) 31.7 % (21.0-51.0) 11/14/24 05:31 [place] % (Auto) 16.9 % (0.0-13.0) H 11/14/24 05:31 Eos % (Auto) 2.4 % (0.9-2.9) 11/14/24 05:31 Baso % (Auto) 0.3 % (0.2-1.0) 11/14/24 05:31 Neut # (Auto) 1.6 x10^3/uL (2.2-4.8) L 11/14/24 05:31 Lymph # (Auto) 1.0 X10^3/uL (1.3-2.9) L 11/14/24 05:31 [place] # (Auto) 0.5 x10^3/uL (0.3-0.8) 11/14/24 05:31 Eos # (Auto) 0.1 x10^3/uL (0.0-0.2) 11/14/24 05:31 Baso # (Auto) 0.0 X10^3/uL (0.0-0.1) 11/14/24 05:31 Absolute Nucleated RBC 0.2 /100WBC 11/14/24 05:31 Sodium 138 mmol/L (136-145) 11/14/24 05:31 Corrected Sodium TNP 11/14/24 05:31 Potassium 5.1 mmol/L (3.5-5.1) 11/14/24 05:31 Chloride 104 mmol/L (98-107) 11/14/24 05:31 Carbon Dioxide 30.1 mmol/L (21-32) 11/14/24 05:31 BUN 69 mg/dL (7-18) H 11/14/24 05:31 Creatinine 3.67 mg/dL (0.55-1.02) H 11/14/24 05:31 Est GFR (MDRD) Af Amer 15 (>60) L 11/14/24 05:31 Est GFR (MDRD) Non-Af 12 (>60) L 11/14/24 05:31 Glucose 107 mg/dL (65-99) H 11/14/24 05:31 Calcium 9.2 mg/dL (8.5-10.1) 11/14/24 05:31 Corrected Calcium 10.2 mg/dL (8.5-10.1) H 11/14/24 05:31 Total Bilirubin 0.50 mg/dL (0.2-1.0) 11/14/24 05:31 AST 12 Units/L (15-37) L 11/14/24 05:31 ALT 19 Units/L (12-78) 11/14/24 05:31 Alkaline Phosphatase 74 Units/L (46-116) 11/14/24 05:31 B-Natriuretic Peptide 50.7 pg/mL (0-79) 11/13/24 19:21 Total Protein 6.2 g/dL (6.4-8.2) L 11/14/24 05:31 Albumin 2.8 g/dL (3.4-5.0) L 11/14/24 05:31 Globulin 3.4 g/dL (2.5-4.5) 11/14/24 05:31 Albumin/Globulin Ratio 0.8 Ratio (1.1-2.1) L 11/14/24 05:31 Specimen Type Clean catch urine 11/13/24 20:38 Urine Color Yellow (YELLOW) 11/13/24 20:38 Urine Appearance Clear (CLEAR) 11/13/24 20:38 Urine pH 6.5 (5.0 - 8.0) 11/13/24 20:38 Ur Specific [place] 1.010 (1.000-1.030) 11/13/24 20:38 Urine Protein Negative (NEGATIVE) 11/13/24 20:38 Urine Glucose (UA) Negative (NEGATIVE) 11/13/24 20:38 Urine Ketones Negative (NEGATIVE) 11/13/24 20:38 Urine Blood Negative (NEGATIVE) 11/13/24 20:38 Urine Nitrite Negative (NEGATIVE) 11/13/24 20:38 Urine Bilirubin Negative (NEGATIVE) 11/13/24 20:38 Urine Urobilinogen Normal (NORMAL) 11/13/24 20:38 Ur Leukocyte Esterase Negative (NEGATIVE) 11/13/24 20:38 Review of Systems Constitutional: No Symptoms Reported Eyes: No Symptoms Reported ENT: No Symptoms Reported Respiratory: Shortness of Breath Cardiovascular: Edema Gastrointestinal: No Symptoms Reported Genitourinary: No Symptoms Reported Musculoskeletal: Leg Pain Skin: Lesions and Wound Neurological: No Symptoms Reported Physical Exam Vital Signs: Vital Signs Temperature 98.1 F Pulse Rate [Brachial] 53 Respiratory Rate 19 Blood Pressure [Left Arm] 136/62 O2 Sat by Pulse Oximetry 100 O2 Sat by Pulse Oximetry 100 Oriented: Normal Respiratory: Diminished Throughout Cardiovascular: Normal and Edema (2-3+ pitting edema ) Auscultation: Bowel Sounds: Normal Palpation: Normal Tenderness: Normal Skin: Hot and Other (right leg erythema, open wound) Musculoskeletal: Leg, Tender and Motor Deficit Psychiatric: Normal Mood Description: Calm Affect: Normal Speech Pattern: Clear and Appropriate Assessment/Plan (1) Cellulitis of leg: Qualifiers: Laterality: right Qualified Code(s): L03.115 - Cellulitis of right lower limb Status: Acute (2) Bilateral edema of lower extremity: Status: Acute (3) Wound of right leg: Qualifiers: Encounter type: initial encounter Qualified Code(s): S81.801A - Unspecified open wound, right lower leg, initial encounter Status: Acute (4) GLADYS (acute kidney injury): Status: Acute (5) Hypertensive heart disease: Qualifiers: Heart failure presence: with heart failure Heart failure type: u nspecified Qualified Code(s): I11.0 - Hypertensive heart disease with heart failure Status: Chronic (6) Chronic venous insufficiency: Status: Chronic (7) CAD (coronary artery disease): Qualifiers: Coronary Disease-Associated Artery/Lesion type: [place] artery [place] vs. transplanted heart: [place] heart Associated angina: without angina Q ualified Code(s): I25.10 - Atherosclerotic heart disease of [place] coronary artery without angina pectoris Status: Chronic (8) Diabetes mellitus type 2, controlled: Status: Chronic
[2024-11-14] MEDS: BUMEX TAB 1 MG PO SCH (11:01)
[2024-11-14] MEDS ORDERED: BACTRIM DS TAB PO SCH (21:00)
[2024-11-14] MEDS: NEURONTIN CAP 300 MG PO SCH (21:07)
[2024-11-15 06:09] LABS: MEAN PLATELET VOLUME 7.5 fL (7.4-11.0); RED CELL DISTRIBUTION WIDTH 18.8 % (11.6-16.5)
[2024-11-15 06:17] LABS: COR CA(FOR HYPOALB) 10.0 mg/dL (8.5-10.1); CREATININE 2.55 mg/dL (0.55-1.02); eGFR NON BLACK RACES 19 (>60)
[2024-11-15 06:37] LABS: PLATELET MORPHOLOGY COMMENT NORMAL (NORMAL)
--- NOTE | 2024-11-15 19:39 | PCM.PROG ---
Progress Note Progress Note for Day of Date of Exam: 11/15/24 Subjective Subjective: Patient is a 84-year-old female with a past medical history of CAD, CHF, COPD, type 2 diabetes, hypertension, CVA and GERD admitted for cellulitis/lower extremity edema. This morning she is sitting up in the recliner. No acute events overnight. She does report improvement in her swelling of her legs and redness. Labs/imaging reviewed: -WBC 3.4, hemoglobin 7.9, platelets 144, sodium 142, potassium 5.0, creatinine 2.55, glucose 108. -Chest x-ray reviewed -Wound culture NGTD. Plan: Continue IV Rocephin. Keep leg elevated. Home medications have been resumed. Replace electrolytes as per protocol. Renal function improving. Monitor renal function. Will hold losartan. Ambulate as tolerated. Monitor a.m. labs and imaging. Past Medical Family Social History Allergies: Allergies codeine Allergy (Unknown, Verified 11/13/24 18:35) Reason: Drug allergy Review of Systems ROS changes noted: see HPI Vital Signs and I&O's Vital Signs: Vital Signs Temperature 98.5 F Temperature 97.6 F Pulse Rate [Brachial] 65 Pulse Rate [Brachial] 69 Respiratory Rate 18 Respiratory Rate 19 Blood Pressure [Left Arm] 137/58 Blood Pressure [Left Arm] 133/60 O2 Sat by Pulse Oximetry 100 O2 Sat by Pulse Oximetry 100 Intake and Output: Intake & Output 11/12/24 11/13/24 11/14/24 11/15/24 23:59 23:59 23:59 23:59 Intake Total 200 / 200 2444 / 2444 120 / 120 Balance 200 / 200 2444 / 2444 120 / 120 Physical Exam Oriented: Normal Respiratory: Normal Cardiovascular: Normal and Edema (2+ pitting edema ) Auscultation: Bowel Sounds: Normal Tenderness: Normal Skin: Red, Tender and Other (right leg erythema, open wound) Musculoskeletal: Leg, Tender and Motor Deficit Psychiatric: Normal Mood Description: Calm Affect: Normal Speech Pattern: Clear and Appropriate Laboratory and Diagnostics 11/15/24 05:31 11/15/24 05:31 Labs: 11/14/24 09:05 Leg - Left Wound Gram Stain - Final 11/14/24 09:05 Leg - Left Wound Culture - Preliminary Laboratory WBC 3.4 X10^3/uL (3.6-10.0) L 11/15/24 05:31 RBC 2.62 X10^6/uL (3.5-5.4) L 11/15/24 05:31 Hgb 7.9 g/dL (12.0-16.0) L 11/15/24 05:31 Hct 23.1 % (36.0-47.0) L 11/15/24 05:31 MCV 88.1 fL (80.0-100.0) 11/15/24 05:31 MCH 30.2 pg (27.0-34.0) 11/15/24 05:31 MCHC 34.2 g/dL (33.0-35.0) 11/15/24 05:31 RDW 18.8 % (11.6-16.5) H 11/15/24 05:31 Plt Count 144 X10^3/uL (150.0-450.0) L 11/15/24 05:31 Plt Count Comment Decreased (ADEQUATE) A 11/15/24 05: MPV 7.5 fL (7.4-11.0) 11/15/24 05:31 Neut % (Auto) 47.5 % (42.0-75.0) 11/15/24 05:31 Lymph % (Auto) 27.2 % (21.0-51.0) 11/15/24 05:31 [place] % (Auto) 23.2 % (0.0-13.0) H 11/15/24 05:31 Eos % (Auto) 1.8 % (0.9-2.9) 11/15/24 05:31 Baso % (Auto) 0.3 % (0.2-1.0) 11/15/24 05:31 Neut # (Auto) 1.6 x10^3/uL (2.2-4.8) L 11/15/24 05:31 Lymph # (Auto) 0.9 X10^3/uL (1.3-2.9) L 11/15/24 05:31 [place] # (Auto) 0.8 x10^3/uL (0.3-0.8) 11/15/24 05:31 Eos # (Auto) 0.1 x10^3/uL (0.0-0.2) 11/15/24 05:31 Baso # (Auto) 0.0 X10^3/uL (0.0-0.1) 11/15/24 05:31 Absolute Nucleated RBC 0.2 /100WBC 11/15/24 05:31 Total Counted 100 11/15/24 05:31 Neutrophils % (Manual) 49 % (39-76) 11/15/24 05:31 Lymphocytes % (Manual) 28 % (13-43) 11/15/24 05:31 Monocytes % (Manual) 20 % (4-9) H 11/15/24 05:31 Eosinophils % (Manual) 3 % (0-6) 11/15/24 05:31 Atypical Lymphocytes Present 11/15/24 05:31 Plt Morphology Comment Normal (NORMAL) 11/15/24 05:31 RBC Morphology Abnormal (NORMAL) A 11/15/24 05:31 [place] Cells 2+ A 11/15/24 05:31 Sodium 142 mmol/L (136-145) 11/15/24 05:31 Corrected Sodium TNP 11/15/24 05:31 Potassium 5.0 mmol/L (3.5-5.1) 11/15/24 05:31 Chloride 107 mmol/L (98-107) 11/15/24 05:31 Carbon Dioxide 30.6 mmol/L (21-32) 11/15/24 05:31 BUN 48 mg/dL (7-18) H 11/15/24 05:31 Creatinine 2.55 mg/dL (0.55-1.02) H 11/15/24 05:31 Est GFR (MDRD) Af Amer 23 (>60) L 11/15/24 05:31 Est GFR (MDRD) Non-Af 19 (>60) L 11/15/24 05:31 Glucose 108 mg/dL (65-99) H 11/15/24 05:31 Calcium 8.7 mg/dL (8.5-10.1) 11/15/24 05:31 Corrected Calcium 10.0 mg/dL (8.5-10.1) 11/15/24 05:31 Total Bilirubin 0.30 mg/dL (0.2-1.0) 11/15/24 05:31 AST 11 Units/L (15-37) L 11/15/24 05:31 ALT 18 Units/L (12-78) 11/15/24 05:31 Alkaline Phosphatase 75 Units/L (46-116) 11/15/24 05:31 B-Natriuretic Peptide 50.7 pg/mL (0-79) 11/13/24 19:21 Total Protein 5.5 g/dL (6.4-8.2) L 11/15/24 05:31 Albumin 2.4 g/dL (3.4-5.0) L 11/15/24 05:31 Globulin 3.1 g/dL (2.5-4.5) 11/15/24 05:31 Albumin/Globulin Ratio 0.8 Ratio (1.1-2.1) L 11/15/24 05:31 Specimen Type Clean catch urine 11/13/24 20:38 Urine Color Yellow (YELLOW) 11/13/24 20:38 Urine Appearance Clear (CLEAR) 11/13/24 20:38 Urine pH 6.5 (5.0 - 8.0) 11/13/24 20:38 Ur Specific [place] 1.010 (1.000-1.030) 11/13/24 20:38 Urine Protein Negative (NEGATIVE) 11/13/24 20:38 Urine Glucose (UA) Negative (NEGATIVE) 11/13/24 20:38 Urine Ketones Negative (NEGATIVE) 11/13/24 20:38 Urine Blood Negative (NEGATIVE) 11/13/24 20:38 Urine Nitrite Negative (NEGATIVE) 11/13/24 20:38 Urine Bilirubin Negative (NEGATIVE) 11/13/24 20:38 Urine Urobilinogen Normal (NORMAL) 11/13/24 20:38 Ur Leukocyte Esterase Negative (NEGATIVE) 11/13/24 20:38 Plan (1) Cellulitis of leg: Status: Acute Qualifiers: Laterality: right Qualified Code(s): L03.115 - Cellulitis of right lower limb (2) Bilateral edema of lower extremity: Status: Acute (3) Wound of right leg: Status: Acute Qualifiers: Encounter type: initial encounter Qualified Code(s): S81.801A - Unspecified open wound, right lower leg, initial encounter (4) GLADYS (acute kidney injury): Status: Acute (5) Hypertensive heart disease: Status: Chronic Qualifiers: Heart failure presence: with heart failure Heart failure type: u nspecified Qualified Code(s): I11.0 - Hypertensive heart disease with heart failure (6) Chronic venous insufficiency: Status: Chronic (7) CAD (coronary artery disease): Status: Chronic Qualifiers: Associated angina: without angina Coronary Disease-Associated Artery/Lesion type: [place] artery [place] vs. transplanted heart: [place] heart Qualified Code(s): I25.10 - Atherosclerotic heart disease of [place] coronary artery without angina pectoris (8) Diabetes mellitus type 2, controlled: Status: Chronic
[2024-11-15] MEDS: PEPCID TAB 20 MG PO SCH (20:33)
[2024-11-16 06:28] LABS: MEAN PLATELET VOLUME 7.4 fL (7.4-11.0); RED CELL DISTRIBUTION WIDTH 19.3 % (11.6-16.5)
[2024-11-16 06:50] LABS: COR CA(FOR HYPOALB) 9.8 mg/dL (8.5-10.1); CREATININE 1.69 mg/dL (0.55-1.02); eGFR NON BLACK RACES 30 (>60)
[2024-11-16 07:05] LABS: BAND NEUTROPHILS % 4 % (0-10); PLATELET MORPHOLOGY COMMENT NORMAL (NORMAL)
[2024-11-16] MEDS: LEVAQUIN PREMIX IV 750 MG 750 MG/150 ML BAG IV SCH (10:23)
[2024-11-16] MEDS ORDERED: NS 500 ML IV 500 ML IV ONE (14:15)
[2024-11-16] MEDS ORDERED: NS 250 ML IV 250 ML IV ONE (19:45)
[2024-11-17 03:05] LABS: RED CELL DISTRIBUTION WIDTH 18.8 % (11.6-16.5)
[2024-11-17 03:10] LABS: COR CA(FOR HYPOALB) 9.5 mg/dL (8.5-10.1); CREATININE 1.39 mg/dL (0.55-1.02); eGFR NON BLACK RACES 38 (>60)
[2024-11-17 03:56] LABS: MEAN PLATELET VOLUME 7.6 fL (7.4-11.0)
[2024-11-17 04:17] LABS: BAND NEUTROPHILS % 4 % (0-10); METAMYELOCYTES % 1; MYELOCYTES % 7
[2024-11-17 04:18] LABS: PLATELET MORPHOLOGY COMMENT NORMAL (NORMAL)
--- NOTE | 2024-11-17 10:43 | PCM.PROG ---
Progress Note Progress Note for Day of Date of Exam: 11/16/24 Subjective Subjective: Patient is a 84-year-old female with a past medical history of CAD, CHF, COPD, type 2 diabetes, hypertension, CVA and GERD admitted for cellulitis/lower extremity edema. This morning she is sitting up in the recliner. No acute events overnight. There is improvement in her erythema and edema of her lower extremities. Labs/imaging reviewed: -WBC 3.0, hemoglobin 7.5, platelets 144, sodium 144, potassium 4.1, creatinine 2.55>1.69, gluc 99. -Chest x-ray reviewed -Wound culture gram positive cocci. Plan: Will change Rocephin to IV Levaquin. Follow-up cultures. Will also order 2 units packed red blood cells to be transfused due to anemia. Will also get stool occult. Keep leg elevated. Home medications have been resumed. Replace electrolytes as per protocol. Renal function improving. Monitor renal function. Will hold losartan. Ambulate as tolerated. Monitor a.m. labs and imaging. Past Medical Family Social History Allergies: Allergies codeine Allergy (Unknown, Verified 11/13/24 18:35) Reason: Drug allergy Review of Systems ROS changes noted: see HPI Vital Signs and I&O's Vital Signs: Vital Signs Temperature 98.1 F Temperature 98.2 F Pulse Rate [Brachial] 70 Pulse Rate [Brachial] 69 Respiratory Rate 18 Respiratory Rate 18 Blood Pressure [Left Arm] 159/72 Blood Pressure [Left Arm] 126/60 O2 Sat by Pulse Oximetry 98 O2 Sat by Pulse Oximetry 99 Intake and Output: Intake & Output 11/13/24 11/14/24 11/15/24 11/16/24 23:59 23:59 23:59 23:59 Intake Total 200 / 200 2444 / 2444 1387 / 1387 400 / 400 Balance 200 / 200 2444 / 2444 1387 / 1387 400 / 400 Physical Exam Oriented: Normal Respiratory: Normal Cardiovascular: Normal and Edema (1+ pitting edema ) Auscultation: Bowel Sounds: Normal Tenderness: Normal Skin: Red, Tender and Other (right leg erythema, open wound) Musculoskeletal: Leg, Tender and Motor Deficit Psychiatric: Normal Mood Description: Calm Affect: Normal Speech Pattern: Clear and Appropriate Laboratory and Diagnostics 11/17/24 02:45 11/17/24 02:45 Labs: 11/14/24 09:05 Leg - Left Wound Gram Stain - Final 11/14/24 09:05 Leg - Left Wound Culture - Preliminary Laboratory WBC 3.0 X10^3/uL (3.6-10.0) L 11/16/24 05:33 RBC 2.50 X10^6/uL (3.5-5.4) L 11/16/24 05:33 Hgb 7.5 g/dL (12.0-16.0) L 11/16/24 05:33 Hct 22.1 % (36.0-47.0) L 11/16/24 05:33 MCV 88.5 fL (80.0-100.0) 11/16/24 05:33 MCH 29.9 pg (27.0-34.0) 11/16/24 05:33 MCHC 33.7 g/dL (33.0-35.0) 11/16/24 05:33 RDW 19.3 % (11.6-16.5) H 11/16/24 05:33 Plt Count 144 X10^3/uL (150.0-450.0) L 11/16/24 05:33 Plt Count Comment Decreased (ADEQUATE) A 11/16/24 05:33 MPV 7.4 fL (7.4-11.0) 11/16/24 05:33 Neut % (Auto) 37.2 % (42.0-75.0) L 11/16/24 05:33 Lymph % (Auto) 30.6 % (21.0-51.0) 11/16/24 05:33 [place] % (Auto) 29.9 % (0.0-13.0) H 11/16/24 05:33 Eos % (Auto) 1.7 % (0.9-2.9) 11/16/24 05:33 Baso % (Auto) 0.6 % (0.2-1.0) 11/16/24 05:33 Neut # (Auto) 1.1 x10^3/uL (2.2-4.8) L 11/16/24 05:33 Lymph # (Auto) 0.9 X10^3/uL (1.3-2.9) L 11/16/24 05:33 [place] # (Auto) 0.9 x10^3/uL (0.3-0.8) H 11/16/24 05:33 Eos # (Auto) 0.1 x10^3/uL (0.0-0.2) 11/16/24 05:33 Baso # (Auto) 0.0 X10^3/uL (0.0-0.1) 11/16/24 05:33 Absolute Nucleated RBC 0.1 /100WBC 11/16/24 05:33 Total Counted 25 11/16/24 05:33 Neutrophils % (Manual) 40 % (39-76) 11/16/24 05:33 Band Neutrophils % 4 % (0-10) 11/16/24 05:33 Lymphocytes % (Manual) 30 % (13-43) 11/16/24 05:33 Monocytes % (Manual) 26 % (4-9) H 11/16/24 05:33 Eosinophils % (Manual) 3 % (0-6) 11/15/24 05:31 Atypical Lymphocytes Present 11/16/24 05:33 Plt Morphology Comment Normal (NORMAL) 11/16/24 05:33 RBC Morphology Abnormal (NORMAL) A 11/16/24 05:33 Poikilocytosis Slight A 11/16/24 05:33 Anisocytosis Slight A 11/16/24 05:33 [place] Cells Slight A 11/16/24 05:33 Acanthocytes (Spur) Slight 11/16/24 05:33 Sodium 144 mmol/L (136-145) 11/16/24 05:33 Corrected Sodium TNP 11/16/24 05:33 Potassium 4.1 mmol/L (3.5-5.1) 11/16/24 05:33 Chloride 109 mmol/L (98-107) H 11/16/24 05:33 Carbon Dioxide 28.2 mmol/L (21-32) 11/16/24 05:33 BUN 35 mg/dL (7-18) H 11/16/24 05:33 Creatinine 1.69 mg/dL (0.55-1.02) H 11/16/24 05:33 Est GFR (MDRD) Af Amer 37 (>60) L 11/16/24 05:33 Est GFR (MDRD) Non-Af 30 (>60) L 11/16/24 05:33 Glucose 99 mg/dL (65-99) 11/16/24 05:33 Calcium 8.4 mg/dL (8.5-10.1) L 11/16/24 05:33 Corrected Calcium 9.8 mg/dL (8.5-10.1) 11/16/24 05:33 Total Bilirubin 0.30 mg/dL (0.2-1.0) 11/16/24 05:33 AST 14 Units/L (15-37) L 11/16/24 05:33 ALT 17 Units/L (12-78) 11/16/24 05:33 Alkaline Phosphatase 71 Units/L (46-116) 11/16/24 05:33 B-Natriuretic Peptide 50.7 pg/mL (0-79) 11/13/24 19:21 Total Protein 5.3 g/dL (6.4-8.2) L 11/16/24 05:33 Albumin 2.3 g/dL (3.4-5.0) L 11/16/24 05:33 Globulin 3.0 g/dL (2.5-4.5) 11/16/24 05:33 Albumin/Globulin Ratio 0.8 Ratio (1.1-2.1) L 11/16/24 05:33 Specimen Type Clean catch urine 11/13/24 20:38 Urine Color Yellow (YELLOW) 11/13/24 20:38 Urine Appearance Clear (CLEAR) 11/13/24 20:38 Urine pH 6.5 (5.0 - 8.0) 11/13/24 20:38 Ur Specific [place] 1.010 (1.000-1.030) 11/13/24 20:38 Urine Protein Negative (NEGATIVE) 11/13/24 20:38 Urine Glucose (UA) Negative (NEGATIVE) 11/13/24 20:38 Urine Ketones Negative (NEGATIVE) 11/13/24 20:38 Urine Blood Negative (NEGATIVE) 11/13/24 20:38 Urine Nitrite Negative (NEGATIVE) 11/13/24 20:38 Urine Bilirubin Negative (NEGATIVE) 11/13/24 20:38 Urine Urobilinogen Normal (NORMAL) 11/13/24 20:38 Ur Leukocyte Esterase Negative (NEGATIVE) 11/13/24 20:38 Plan (1) Cellulitis of leg: Status: Acute Qualifiers: Laterality: right Qualified Code(s): L03.115 - Cellulitis of right lower limb (2) Bilateral edema of lower extremity: Status: Acute (3) Wound of right leg: Status: Acute Qualifiers: Encounter type: initial encounter Qualified Code(s): S81.801A - Unspecified open wound, right lower leg, initial encounter (4) GLADYS (acute kidney injury): Status: Acute (5) Hypertensive heart disease: Status: Chronic Qualifiers: Heart failure presence: with heart failure Heart failure type: u nspecified Qualified Code(s): I11.0 - Hypertensive heart disease with heart failure (6) Chronic venous insufficiency: Status: Chronic (7) CAD (coronary artery disease): Status: Chronic Qualifiers: Associated angina: without angina Coronary Disease-Associated Artery/Lesion type: [place] artery [place] vs. transplanted heart: [place] heart Qualified Code(s): I25.10 - Atherosclerotic heart disease of [place] coronary artery without angina pectoris (8) Diabetes mellitus type 2, controlled: Status: Chronic
[2024-11-17 12:28] VITALS: BP 167/70; PULSE 64; RESP 19; TEMP 99.1; O2SAT 97
--- NOTE | 2024-11-20 11:05 | W.DIS.FURT ---
Summary of Discharge Discharge Summary of Date Date of Exam: 11/17/24 Admission Date Date of Admission: 11/13/24 Admission Diagnosis Patient Problems (Updated 11/14/24 @ 10:51 by Rossana Johnson MD) Bilateral edema of lower extremity (Acute) R60.0 GLADYS (acute kidney injury) (Acute) N17.9 Hospital Course: Patient is a 84-year-old female with a past medical history of CAD, CHF, COPD, type 2 diabetes, hypertension, CVA and GERD presented with worsening lower extremity edema. She noticed increased redness and swelling in both legs, worse in the right leg. She was being treated outpatient with antibiotics p.o. and topical. She states her right leg redness continued to get worse. She also noticed some blisters with fluid drainage. She has been taking all her medications as prescribed. ER workup showed elevated potassium 5.5 and creatinine. Hemoglobin was 8.3. UA was negative. Chest x-ray showed cardiomegaly. She was started on gentle hydration. She was given 1 dose of Lasix IV. She was admitted for further evaluation of cellulitis/lower extremity edema. She was started on IV Rocephin. It was later changed to Levaquin.. Wound culture was ordered. Her labs are monitored daily and electrolytes replace as needed. Her leg redness and swelling improved. She was noted to be anemic, hemoglobin dropped 7.5. She denied having any active bleeding. She was given 2 units transfusion. Her hemoglobin did improve to 10.6. Her wound culture showed E faecalis. It was sensitive to Levaquin. Patient was stable to be discharged home on p.o. antibiotics. She will follow-up with PCP as scheduled. Vital Signs: Vital Signs (72 hours) 11/14/24 12:00 11/14/24 16:00 11/14/24 19:00 Temperature 97.7 F 97.5 F L Pulse Rate [Brachial] 72 55 L Respiratory Rate 18 17 Blood Pressure [Left Arm] 152/65 113/51 Blood Pressure [Right Arm] O2 Sat by Pulse Oximetry 97 95 Oxygen Delivery Method Room Air Room Air Room Air 11/14/24 20:00 11/14/24 23:08 11/15/24 04:00 Temperature 97.9 F 98.0 F 97.6 F Pulse Rate [Brachial] 62 72 69 Respiratory Rate 18 18 19 Blood Pressure [Left Arm] 137/60 144/79 133/60 Blood Pressure [Right Arm] O2 Sat by Pulse Oximetry 96 96 100 Oxygen Delivery Method Room Air Room Air Room Air 11/15/24 07:00 11/15/24 08:00 11/15/24 12:00 Temperature 98.5 F 98.1 F Pulse Rate [Brachial] 65 68 Respiratory Rate 18 18 Blood Pressure [Left Arm] 137/58 141/65 Blood Pressure [Right Arm] O2 Sat by Pulse Oximetry 100 98 Oxygen Delivery Method Room Air Room Air Room Air 11/15/24 16:00 11/15/24 19:00 11/15/24 20:00 Temperature 97.5 F L 98.1 F Pulse Rate [Brachial] 87 75 Respiratory Rate 20 18 Blood Pressure [Left Arm] 106/54 163/69 Blood Pressure [Right Arm] O2 Sat by Pulse Oximetry 97 94 L Oxygen Delivery Method Room Air Room Air Room Air 11/15/24 20:35 11/15/24 23:46 11/16/24 03:43 Temperature 97.5 F L 98.2 F Pulse Rate [Brachial] 67 69 Respiratory Rate 19 18 Blood Pressure [Left Arm] 108/51 138/60 126/60 Blood Pressure [Right Arm] O2 Sat by Pulse Oximetry 97 99 Oxygen Delivery Method Room Air Room Air 11/16/24 07:43 11/16/24 09:00 11/16/24 12:20 Temperature 98.1 F 98.0 F Pulse Rate [Brachial] 70 71 Respiratory Rate 18 18 Blood Pressure [Left Arm] 159/72 141/65 Blood Pressure [Right Arm] O2 Sat by Pulse Oximetry 98 97 Oxygen Delivery Method Room Air Room Air Room Air 11/16/24 16:25 11/16/24 19:00 11/16/24 19:41 Temperature 98.2 F 98.7 F Pulse Rate [Brachial] 71 70 Respiratory Rate 19 19 Blood Pressure [Left Arm] Blood Pressure [Right Arm] 157/63 128/71 O2 Sat by Pulse Oximetry 97 96 Oxygen Delivery Method Room Air Room Air Room Air 11/17/24 04:00 11/17/24 04:11 11/17/24 07:00 Temperature 98.2 F Pulse Rate [Brachial] 60 Respiratory Rate 18 Blood Pressure [Left Arm] Blood Pressure [Right Arm] 166/75 155/75 O2 Sat by Pulse Oximetry 100 Oxygen Delivery Method Room Air Room Air 11/17/24 08:00 Temperature 97.8 F Pulse Rate [Brachial] 66 Respiratory Rate 20 Blood Pressure [Left Arm] Blood Pressure [Right Arm] 164/72 O2 Sat by Pulse Oximetry 100 Oxygen Delivery Method Room Air Labs: Laboratory Last Values WBC 4.9 X10^3/uL (3.6-10.0) 11/17/24 02:45 RBC 3.60 X10^6/uL (3.5-5.4) 11/17/24 02:45 Hgb 10.6 g/dL (12.0-16.0) L D 11/17/24 02:45 Hct 30.7 % (36.0-47.0) L 11/17/24 02:45 MCV 85.3 fL (80.0-100.0) 11/17/24 02:45 MCH 29.6 pg (27.0-34.0) 11/17/24 02:45 MCHC 34.6 g/dL (33.0-35.0) 11/17/24 02:45 RDW 18.8 % (11.6-16.5) H 11/17/24 02:45 Plt Count 160 X10^3/uL (150.0-450.0) 11/17/24 02:45 Plt Count Comment Adequate (ADEQUATE) 11/17/24 02:45 MPV 7.6 fL (7.4-11.0) 11/17/24 02:45 Neut % (Auto) 35.6 % (42.0-75.0) L 11/17/24 02:45 Lymph % (Auto) 26.2 % (21.0-51.0) 11/17/24 02:45 [place] % (Auto) 36.5 % (0.0-13.0) H 11/17/24 02:45 Eos % (Auto) 1.2 % (0.9-2.9) 11/17/24 02:45 Baso % (Auto) 0.5 % (0.2-1.0) 11/17/24 02:45 Neut # (Auto) 1.7 x10^3/uL (2.2-4.8) L 11/17/24 02:45 Lymph # (Auto) 1.3 X10^3/uL (1.3-2.9) 11/17/24 02:45 [place] # (Auto) 1.8 x10^3/uL (0.3-0.8) H 11/17/24 02:45 Eos # (Auto) 0.1 x10^3/uL (0.0-0.2) 11/17/24 02:45 Baso # (Auto) 0.0 X10^3/uL (0.0-0.1) 11/17/24 02:45 Absolute Nucleated RBC 0.1 /100WBC 11/17/24 02:45 Total Counted 100 11/17/24 02:45 Neutrophils % (Manual) 25 % (39-76) L 11/17/24 02:45 Band Neutrophils % 4 % (0-10) 11/17/24 02:45 Lymphocytes % (Manual) 35 % (13-43) 11/17/24 02:45 Monocytes % (Manual) 26 % (4-9) H 11/17/24 02:45 Eosinophils % (Manual) 2 % (0-6) 11/17/24 02:45 Metamyelocytes % 1 11/17/24 02:45 Myelocytes % 7 11/17/24 02:45 Atypical Lymphocytes Few A 11/17/24 02:45 Plt Morphology Comment Normal (NORMAL) 11/17/24 02:45 RBC Morphology Abnormal (NORMAL) A 11/17/24 02:45 Poikilocytosis Present 11/17/24 02:45 Anisocytosis Slight A 11/17/24 02:45 Ovalocytes Present 11/17/24 02:45 [place] Cells Present 11/17/24 02:45 Acanthocytes (Spur) Slight 11/16/24 05:33 Schistocytes Present 11/17/24 02:45 Sodium 140 mmol/L (136-145) 11/17/24 02:45 Corrected Sodium TNP 11/17/24 02:45 Potassium 3.8 mmol/L (3.5-5.1) 11/17/24 02:45 Chloride 104 mmol/L (98-107) 11/17/24 02:45 Carbon Dioxide 28.9 mmol/L (21-32) 11/17/24 02:45 BUN 26 mg/dL (7-18) H 11/17/24 02:45 Creatinine 1.39 mg/dL (0.55-1.02) H 11/17/24 02:45 Est GFR (MDRD) Af Amer 46 (>60) L 11/17/24 02:45 Est GFR (MDRD) Non-Af 38 (>60) L 11/17/24 02:45 Glucose 93 mg/dL (65-99) 11/17/24 02:45 Calcium 8.4 mg/dL (8.5-10.1) L 11/17/24 02:45 Corrected Calcium 9.5 mg/dL (8.5-10.1) 11/17/24 02:45 Total Bilirubin 1.70 mg/dL (0.2-1.0) H 11/17/24 02:45 AST 14 Units/L (15-37) L 11/17/24 02:45 ALT 18 Units/L (12-78) 11/17/24 02:45 Alkaline Phosphatase 78 Units/L (46-116) 11/17/24 02:45 B-Natriuretic Peptide 50.7 pg/mL (0-79) 11/13/24 19:21 Total Protein 6.1 g/dL (6.4-8.2) L 11/17/24 02:45 Albumin 2.6 g/dL (3.4-5.0) L 11/17/24 02:45 Globulin 3.5 g/dL (2.5-4.5) 11/17/24 02:45 Albumin/Globulin Ratio 0.7 Ratio (1.1-2.1) L 11/17/24 02:45 Specimen Type Clean catch urine 11/13/24 20:38 Urine Color Yellow (YELLOW) 11/13/24 20:38 Urine Appearance Clear (CLEAR) 11/13/24 20:38 Urine pH 6.5 (5.0 - 8.0) 11/13/24 20:38 Ur Specific [place] 1.010 (1.000-1.030) 11/13/24 20:38 Urine Protein Negative (NEGATIVE) 11/13/24 20:38 Urine Glucose (UA) Negative (NEGATIVE) 11/13/24 20:38 Urine Ketones Negative (NEGATIVE) 11/13/24 20:38 Urine Blood Negative (NEGATIVE) 11/13/24 20: Urine Nitrite Negative (NEGATIVE) 11/13/24 20:38 Urine Bilirubin Negative (NEGATIVE) 11/13/24 20:38 Urine Urobilinogen Normal (NORMAL) 11/13/24 20:38 Ur Leukocyte Esterase Negative (NEGATIVE) 11/13/24 20:38 Blood Type O NEGATIVE 11/16/24 11:14 Antibody Screen Negative 11/16/24 11:14 Crossmatch See Detail 11/16/24 11:14 Reason For Visit: GLADYS, PERIPHERAL EDEMA Discharge Diagnosis All Active Problems (Updated 11/14/24 @ 10:51 by Rossana Johnson MD) Cellulitis of leg (Acute) Bilateral edema of lower extremity (Acute) GLADYS (acute kidney injury) (Acute) Hypertensive heart disease (Chronic) Carotid bruit (Acute) Cellulitis and abscess of right leg (Acute) Bilateral lower leg cellulitis (Acute) Wound of right leg (Acute) Dysphagia (Acute) Lower extremity edema (Acute) Chronic venous insufficiency (Chronic) Hypomagnesemia (Acute) Malignant hypertension (Chronic) Hyperlipidemia (Chronic) CAD (coronary artery disease) (Chronic) Stented coronary artery (Chronic) GERD (gastroesophageal reflux disease) (Chronic) Diabetes mellitus type 2, controlled (Chronic) Abdominal pain (Acute) Cellulitis of leg, left (Acute) Unsteady gait (Acute) Osteoarthritis (Acute) Intractable low back pain (Acute) Knee pain, bilateral (Chronic) Urinary tract infection (Acute) GI (gastrointestinal bleed) (Acute) Chest pain (Acute) Arthritis (Acute) Influenza A (Acute) Headache (Acute) Lacunar infarction (Acute) Congestive heart failure (CHF) (Chronic) Cardiomegaly (Acute) Hyperglycemia (Acute) Muscle spasm (Acute) Anemia (Acute) HTN (hypertension) (Chronic) Plan of Treatment: Continue with present treatment and follow up plan. Pt is to keep follow up appointment as instructed and take medications as ordered. Discharge Medications Discharge Medications: codeine Allergy (Unknown, Verified 11/13/24 18:35) CONTINUE taking the following medications albuterol sulfate 90 mcg/actuation aerosol inhaler 2 puff inhalation BID PRN 11/13/24 [History] gentamicin 0.1 % topical ointment 1 applic topical BID 11/13/24 [History] meclizine 25 mg tablet 25 mg PO BID PRN 11/13/24 [History] mupirocin 2 % topical ointment 1 applic topical BID-TID 11/13/24 [History] nystatin 100,000 unit/gram topical powder 1 applic topical BID-TID 11/13/24 [History] ondansetron 8 mg disintegrating tablet 8 mg PO DAILY PRN 11/13/24 [History] oxybutynin chloride 5 mg tablet 5 mg PO BID 11/13/24 [History] New Prescriptions levofloxacin 500 mg tablet 500 mg PO QDAY 7 days #7 tabs 11/17/24 [Rx] Discharge Disposition Discharge Disposition: home Discharge Condition: stable Discharge Plan Discharge Plan Hospital Course: Patient is a 84-year-old female with a past medical history of CAD, CHF, COPD, type 2 diabetes, hypertension, CVA and GERD presented with worsening lower extremity edema. She noticed increased redness and swelling in both legs, worse in the right leg. She was being treated outpatient with antibiotics p.o. and topical. She states her right leg redness continued to get worse. She also noticed some blisters with fluid drainage. She has been taking all her medications as prescribed. ER workup showed elevated potassium 5.5 and creatinine. Hemoglobin was 8.3. UA was negative. Chest x-ray showed cardiomegaly. She was started on gentle hydration. She was given 1 dose of Lasix IV. She was admitted for further evaluation of cellulitis/lower extremity edema. She was started on IV Rocephin. It was later changed to Levaquin.. Wound culture was ordered. Her labs are monitored daily and electrolytes replace as needed. Her leg redness and swelling improved. She was noted to be anemic, hemoglobin dropped 7.5. She denied having any active bleeding. She was given 2 units transfusion. Her hemoglobin did improve to 10.6. Her wound cu lture showed E faecalis. It was sensitive to Levaquin. Patient was stable to be discharged home on p.o. antibiotics. She will follow-up with PCP as scheduled. Patient Disposition: 01 HOME, SELF-CARE Condition: Stable Health Concerns: Post Hospitalization: new medications and changes needed to prevent readmission or further decline. Pt educated and given instructions on all concerns. Plan of Treatment: Continue with present treatment and follow up plan. Pt is to keep follow up appointment as instructed and take medications as ordered. Prescription drug monitoring program results: PDMP reviewed and no concerns identified Prescriptions: New levofloxacin 500 mg tablet 500 mg PO QDAY 7 Days Qty: 7 0RF Continued aspirin 81 mg tablet,delayed release (DR/EC) 81 mg PO QDAY carvedilol 12.5 mg tablet 12.5 mg PO BID Qty: 180 3RF Rx Instructions: must administer with a meal/food montelukast 10 mg tablet 10 mg PO QDAY rivaroxaban [Xarelto] 2.5 mg tablet 2.5 mg PO BID gabapentin 300 mg capsule 300 mg PO TID azelastine 137 mcg (0.1 %) aerosol,spray 2 spray INTRANASAL BID PRN Patient Comments: [NO ORIGINAL SIG] bumetanide 1 mg Tablet 1 mg PO BID PRN famotidine 40 mg tablet 40 mg PO QHS methotrexate sodium 2.5 mg tablet 12.5 mg PO WEEKLY Patient Comments: pt takes on Tuesdays Rx Instructions: TAKES ON TUESDAY atorvastatin 40 mg tablet 40 mg PO QHS Patient Comments: take 1 tablet by mouth at bedtime Linzess 145 mcg capsule 145 mcg PO DAILY Rx Instructions: for constipation. pantoprazole 40 MG tablet,delayed release (DR/EC) 40 mg PO BID Qty: 60 3RF Rx Instructions: TAKE ONE TABLET TWICE A DAY valsartan 160 mg Tablet 160 mg PO BID potassium chloride 10 mEq tablet extended release 10 meq PO QDAY hydrocodone-acetaminophen 10-325 mg tablet 1 tab PO TID PRN (Reason: Pain) ondansetron 8 mg tablet,disintegrating 8 mg PO DAILY PRN meclizine 25 mg tablet 25 mg PO BID PRN mupirocin 2 % ointment 1 applic TOPICAL BID-TID nystatin 100,000 unit/gram powder 1 applic TOPICAL BID-TID albuterol sulfate 90 mcg/actuation HFA aerosol inhaler 2 puff inhalation BID PRN oxybutynin chloride 5 mg tablet 5 mg PO BID gentamicin 0.1 % ointment 1 applic TOPICAL BID Patient Comments: [NO ORIGINAL SIG] Discontinued sulfamethoxazole-trimethoprim 800-160 mg tablet 1 tab PO BID sulfamethoxazole-trimethoprim 800-160 mg tablet 1 tab PO BID Follow ups/Referrals Follow ups/Referrals: Júnior Chanel [Primary Care Provider, MEDICAL] - 1 WEEK Instructions Instructions: Acute Kidney Injury, Adult, Blood Transfusion, Adult, E asy-to-Read, Anemia, Cellulitis, Adult, [id number], Levofloxacin tablets, Peripheral Edema Stand Alone Forms: Excuse From Work or School, Find Help Web Site, Post Hospital Follow Up Care Print Language: [place]
== END 2024-11-17 14:00 | disposition home or self-care (01) | DRG 603 ==
LOC: ER 18:14 → MED/SURG 21:05
PROVIDERS: ADMIT Internal Medicine; ATTEND Internal Medicine
DX: E11.65 Type 2 diabetes mellitus with hyperglycemia; B95.2 Enterococcus as the cause of diseases classified elsewhere; Z86.73 Personal history of transient ischemic attack (TIA), and cerebral infarction without residual deficits; L03.115 Cellulitis of right lower limb; D64.89 Other specified anemias; I87.2 Venous insufficiency (chronic) (peripheral); Z16.29 Resistance to other single specified antibiotic; R26.89 Other abnormalities of gait and mobility; I25.10 Atherosclerotic heart disease of native coronary artery without angina pectoris; J44.9 Chronic obstructive pulmonary disease, unspecified; K21.9 Gastro-esophageal reflux disease without esophagitis; E87.1 Hypo-osmolality and hyponatremia; X58.XXXA Exposure to other specified factors, initial encounter; N17.8 Other acute kidney failure; L03.116 Cellulitis of left lower limb; M51.369 Other intervertebral disc degeneration, lumbar region without mention of lumbar back pain or lower extremity pain; S81.801A Unspecified open wound, right lower leg, initial encounter; K92.1 Melena; I45.10 Unspecified right bundle-branch block; R60.0 Localized edema; E87.5 Hyperkalemia; I11.0 Hypertensive heart disease with heart failure; R94.31 Abnormal electrocardiogram [ECG] [EKG]; I50.9 Heart failure, unspecified; R06.02 Shortness of breath; Y92.9 Unspecified place or not applicable